=== PATIENT | female | born 1950 | race Hispanic/Latino ===

== ENCOUNTER 2017-11-11 09:26 | Emergency (ER) | payer BC, OTHER ==
--- NOTE | 2017-11-11 10:02 | RAD REPORT ---
EXAM DESCRIPTION: RAD - Chest Pa And Lat (2 Views) - 11/11/2017 9:56 am CLINICAL HISTORY: Cough, headache and diarrhea. COMPARISON: 03/15/2009 FINDINGS: The lungs are clear. The heart is mildly prominent in size. No displaced fractures. IMPRESSION: No acute intrathoracic process.
--- NOTE | 2017-11-11 10:25 | ER ---
Nurse's Notes [facility] Name: Joyce Renee Age: 67 yrs Sex: Female : 1950 Arrival Date: 11/11/2017 Time: 09:33 Bed 15 Private MD: Tosin Melchor Diagnosis: Cough Presentation: 11/11 09:44 Presenting complaint: Patient states: c/o cough, DALTON, diarrhea x 4 days. Transition of jl7 care: patient was not received from another setting of care. Onset of symptoms was November 08, 2017. Care prior to arrival: None. 09:44 Method Of Arrival: Ambulatory jl7 09:44 Acuity: GUCCI 3 jl7 Triage Assessment: 09:48 General: Appears in no apparent distress. uncomfortable, Behavior is calm, cooperative, jl7 appropriate for age. Pain: Complains of pain in ribs "From coughing.". Neuro: Level of Consciousness is awake, alert, obeys commands. Cardiovascular: Heart tones S1 S2 present Patient's skin is warm and dry. Respiratory: Airway is patent Respiratory effort is even, unlabored, Respiratory pattern is regular, symmetrical, Breath sounds with wheezes in right upper lobe. GI: No signs and/or symptoms were reported involving the gastrointestinal system. : No signs and/or symptoms were reported regarding the genitourinary system. Derm: Skin is pink, warm \\T\\ dry. Musculoskeletal: No signs and/or symptoms reported regarding the musculoskeletal system. Historical: - Allergies: 09:48 Iodine; jl7 - Home Meds: 09:48 imatinib 400 mg oral tab [Active]; atenolol 25 mg Oral tab [Active]; Multaq 400 mg oral jl7 tab [Active]; sertraline 100 mg oral tab [Active]; PH[facility] Thyroid 60 mg oral tab [Active]; - PMHx: 09:48 Atrial Fib; chemotherapy; CML; Hypertension; jl7 - PSHx: 09:48 Hysterectomy; Cholecystectomy; jl7 - Immunization history:: Adult Immunizations up to date. - Social history:: Smoking status: Patient/guardian denies using tobacco. Screenin:55 Abuse screen: Denies threats or abuse. Denies injuries from another. Nutritional jl7 screening: No deficits noted. Tuberculosis screening: No symptoms or risk factors identified. Fall Risk None identified. Assessment: 09:45 General: See triage assessment. jl7 10:25 Reassessment: No changes from previously documented assessment. Patient and/or family jl7 updated on plan of care and expected duration. Pain level reassessed. Patient is alert, oriented x 3, equal unlabored respirations, skin warm/dry/pink. Vital Signs: 09:48 BP 136 / 82; Pulse 74; Resp 18 S; Temp 98.2(O); Pulse Ox 99% on R/A; Weight 72.57 kg jl7 (R); Height 5 ft. 1 in. (154.94 cm) (R); 10:30 BP 116 / 64; Pulse 70; Resp 16 S; Pulse Ox 99% on R/A; jl7 09:48 Body Mass Index 30.23 (72.57 kg, 154.94 cm) jl7 ED Course: 09:33 Patient arrived in ED. mr 09:33 Tosin Melchor MD is Private Physician. mr 09:36 Star Covarrubias, DYLAN is Primary Nurse. jl7 09:37 Laurence Wells FNP-C is [facility]. kb 09:37 Augustine Nogueira MD is Attending Physician. kb 09:45 Triage completed. jl7 09:48 Arm band placed on right wrist. jl7 09:52 Patient moved to radiology via wheelchair. jb2 09:54 X-ray completed. Patient tolerated procedure well. Patient moved back from radiology. jb2 09:54 Chest Pa And Lat (2 Views) XRAY In Process Unspecified. EDMS 09:55 Patient has correct armband on for positive identification. Placed in gown. Bed in low jl7 position. Call light in reach. Side rails up X 1. Pulse ox on. NIBP on. 09:55 Flu and/or RSV swab sent to lab. jl7 10:30 No provider procedures requiring assistance completed. Patient did not have IV access jl7 during this emergency room visit. Administered Medications: No medications were administered Outcome: 10:24 Discharge ordered by . kb 10:30 Discharged to home ambulatory, with family. jl7 10:30 Condition: stable 10:30 Discharge instructions given to patient, family, Instructed on discharge instructions, follow up and referral plans. medication usage, Demonstrated understanding of instructions, follow-up care, medications, Prescriptions given X 1. 10:32 Patient left the ED. jl7 Signatures: Dispatcher [employer] EDAL Russell, Laurence, INSPECTOR BICYCLE-C INSPECTOR BICYCLE-Anjelica Sawant Jesse jb2 Leal, Jahala, RN RN jl7
--- NOTE | 2017-11-11 10:25 | EDPHYS ---
Physician Documentation [facility] Name: Joyce Renee Age: 67 yrs Sex: Female : 1950 Arrival Date: 11/11/2017 Time: 09:33 Bed 15 Private MD: Tosin Melchor ED Physician Augustine Nogueira HPI: 11/11 09:57 This 67 yrs old Female presents to ER via Ambulatory with complaints of Cough. kb 09:57 The patient or guardian reports cough, that is intermittent, described as mild, with no kb sputum. Onset: The symptoms/episode began/occurred 4 day(s) ago. Severity of symptoms: At their worst the symptoms were mild, moderate, in the emergency department the symptoms are unchanged. Modifying factors: The symptoms are alleviated by nothing, the symptoms are aggravated by nothing. Associated signs and symptoms: The patient has no apparent associated signs or symptoms. The patient has not experienced similar symptoms in the past. The patient has not recently seen a physician. Pt reports cough for 4 days, worse at night. Historical: - Allergies: 09:48 Iodine; jl7 - Home Meds: 09:48 imatinib 400 mg oral tab [Active]; atenolol 25 mg Oral tab [Active]; Multaq 400 mg oral jl7 tab [Active]; sertraline 100 mg oral tab [Active]; [employer] Thyroid 60 mg oral tab [Active]; - PMHx: 09:48 Atrial Fib; chemotherapy; CML; Hypertension; jl7 - PSHx: 09:48 Hysterectomy; Cholecystectomy; jl7 - Immunization history:: Adult Immunizations up to date. - Social history:: Smoking status: Patient/guardian denies using tobacco. ROS: 09:56 ENT: Negative for injury, pain, and discharge, Neck: Negative for injury, pain, and kb swelling, Cardiovascular: Negative for chest pain, palpitations, and edema, Abdomen/GI: Negative for abdominal pain, nausea, vomiting, diarrhea, and constipation, : Negative for injury, bleeding, discharge, and swelling, MS/Extremity: Negative for injury and deformity, Skin: Negative for injury, rash, and discoloration, Neuro: Negative for headache, weakness, numbness, tingling, and seizure. 09:56 Constitutional: Positive for chills, Negative for body aches, fatigue, fever, malaise, poor PO intake, weight loss. 09:56 Respiratory: Positive for cough, Negative for dyspnea on exertion, hemoptysis, orthopnea, pleurisy, shortness of breath, sputum production, wheezing. Exam: 09:56 Constitutional: This is a well developed, well nourished patient who is awake, alert, kb and in no acute distress. Head/Face: Normocephalic, atraumatic. ENT: Nares patent. No nasal discharge, no septal abnormalities noted. Tympanic membranes are normal and external auditory canals are clear. Oropharynx with no redness, swelling, or masses, exudates, or evidence of obstruction, uvula midline. Mucous membranes moist. Neck: Trachea midline, no thyromegaly or masses palpated, and no cervical lymphadenopathy. Supple, full range of motion without nuchal rigidity, or vertebral point tenderness. No Meningismus. Chest/axilla: Normal chest wall appearance and motion. Nontender with no deformity. No lesions are appreciated. Cardiovascular: Regular rate and rhythm with a normal S1 and S2. No gallops, murmurs, or rubs. Normal PMI, no JVD. No pulse deficits. Respiratory: Lungs have equal breath sounds bilaterally, clear to auscultation and percussion. No rales, rhonchi or wheezes noted. No increased work of breathing, no retractions or nasal flaring. Abdomen/GI: Soft, non-tender, with normal bowel sounds. No distension or tympany. No guarding or rebound. No evidence of tenderness throughout. Skin: Warm, dry with normal turgor. Normal color with no rashes, no lesions, and no evidence of cellulitis. MS/ Extremity: Pulses equal, no cyanosis. Neurovascular intact. Full, normal range of motion. Neuro: Awake and alert, GCS 15, oriented to person, place, time, and situation. Cranial nerves II-XII grossly intact. Motor strength 5/5 in all extremities. Sensory grossly intact. Cerebellar exam normal. Normal gait. Vital Signs: 09:48 BP 136 / 82; Pulse 74; Resp 18 S; Temp 98.2(O); Pulse Ox 99% on R/A; Weight 72.57 kg jl7 (R); Height 5 ft. 1 in. (154.94 cm) (R); 10:30 BP 116 / 64; Pulse 70; Resp 16 S; Pulse Ox 99% on R/A; jl7 09:48 Body Mass Index 30.23 (72.57 kg, 154.94 cm) jl7 MDM: 09:[address] [facility] 09:56 Data reviewed: vital signs, nurses notes. Data interpreted: Pulse oximetry: on room air kb is 99 %. Interpretation: normal. 10:23 Counseling: I had a detailed discussion with the patient and/or guardian regarding: the kb historical points, exam findings, and any diagnostic results supporting the discharge/admit diagnosis, lab results, radiology results, the need for outpatient follow up, a family practitioner, to return to the emergency department if symptoms worsen or persist or if there are any questions or concerns that arise at home. 11/11 09:44 Order name: Flu; Complete Time: 10:23 kb 11/11 09:44 Order name: Chest Pa And Lat (2 Views) XRAY; Complete Time: 10:06 kb Administered Medications: No medications were administered Disposition: 11/12 07:24 Co-signature as Attending Physician, Augustine Nogueira MD I agree with the assessment and [facility] plan of care. Disposition: 11/11/17 10:24 Discharged to Home. Impression: Cough. - Condition is Stable. - Discharge Instructions: Cough, Adult, [id number]. - Prescriptions for Tessalon Perles 100 mg Oral Capsule - take 1 capsule by ORAL route every 8 hours As needed; 15 capsule. - Medication Reconciliation Form, Thank You Letter, Antibiotic Education, Prescription Opioid Use form. - Follow up: Emergency Department; When: As needed; Reason: Worsening of condition. Follow up: Private Physician; When: 2 - 3 days; Reason: Recheck today's complaints, Continuance of care, Re-evaluation by your physician. Signatures: Dispatcher [employer] Laurence Porter, VINYL DIPPER-C NITZA-Augustine Anglin MD MD cha Leal, Jahala, RN RN jl7
[2017-11-11 10:36] VITALS: TEMP 98.2; O2SAT 99
[2017-11-11 10:37] VITALS: BP 116/64
== END 2017-11-11 10:32 | disposition home or self-care (01) ==
LOC: ER 09:26
DX: R05 Cough (principal); I10 Essential (primary) hypertension; I48.91 Unspecified atrial fibrillation; Z85.6 Personal history of leukemia; Z91.048 Other nonmedicinal substance allergy status
CPT/HCPCS: 71046; 87804; 99284

== ENCOUNTER 2018-10-06 07:22 | Day surgery (SDC) | payer OTHER ==
[2018-10-06] MEDS ORDERED: Ringers Lactate 1,000 ML IV ONE (07:58)
[2018-10-06] MEDS ORDERED: LIDOCAINE 1% MPF 5 ML VIAL ONE (08:24)
[2018-10-06] MEDS ORDERED: PROPOFOL 200 MG/20 ML VIAL IV ONE ×2 (08:24→10:00)
--- NOTE | 2018-10-06 09:40 | ENDO RPT ---
[address], [address] COLONOSCOPY PROCEDURE REPORT EXAM DATE: 10/06/2018 PATIENT NAME: Joyce Renee MR #: [id number] BIRTHDATE: 1950 ATTENDING: Roger Louie DR STATUS: outpatient SERVICE GIRL: Joanne Rice RN, Abbey Gomez, and Romero Gomez INDICATIONS: The patient is a 68 yr old Female here for a colonoscopy due to unexplained chronic diarrhea PROCEDURE PERFORMED: Colonoscopy with biopsy MEDICATIONS: Per Anesthesia. ESTIMATED BLOOD LOSS: None CONSENT: The patient understands the risks and benefits of the procedure and understands that these risks include, but are not limited to: sedation, allergic reaction, infection, perforation and/or bleeding. Alternative means of evaluation and treatment include, among others: physical exam, x-rays, and/or surgical intervention. The patient elects to proceed with this endoscopic procedure. DESCRIPTION OF PROCEDURE: During intra-op preparation period all mechanical medical equipment was checked for proper function. Hand hygiene and appropriate measures for infection prevention was taken. Procedure, possible complications, alternatives including, but not limited to possibility of bleeding, perforation, tear, infection, sepsis, need for surgery, need for blood transfusion, were explained to the patient. After the risks, benefits and alternatives of the procedure were thoroughly explained, Informed consent was verified, confirmed and timeout was successfully executed by the treatment team. The patient was placed in the left lateral position. A digital rectal exam was performed and revealed internal hemorrhoids. After appropriate level of anesthesia, the scope was passed. The EC-[id number] ([id number]) and [id number] ([id number]) endoscope was introduced through the anus and advanced to the cecum, which was identified by both the appendix and ileocecal valve. The quality of the prep was fair. The instrument was then slowly withdrawn as the colon was fully examined. Scope withdrawal time was 15 minutes. COLON FINDINGS: Tortuous Sigmoid Colon. A large sized diffuse circumferential patch of abnormal mucosa was found at the cecum. The mucosa was erythematous and edematous. A biopsy of the area was performed using cold forceps. There was severe diverticulosis noted in the sigmoid colon with associated muscular hypertrophy, colonic narrowing, luminal narrowing, petechiae and tortuosity. No bleeding was noted from the diverticulosis. Retroflexed views revealed no abnormalities. The scope was then completely withdrawn from the patient and the procedure terminated. ADVERSE EVENTS: There were no complications. IMPRESSIONS: 1. Tortuous Sigmoid Colon 2. Large sized diffuse circumferential abnormal mucosa was found at the cecum; The mucosa was erythematous and edematous; biopsy of the area was performed using cold forceps 3. There was severe diverticulosis noted in the sigmoid colon RECOMMENDATIONS: 1. avoid NSAIDS for 2 weeks 2. await biopsy results 3. follow-up: office 2 week(s) 4. hemorrhoidal hygiene 5. yearly hemoccult starting in 4 years 6. increase dietary water 7. low fiber / diverticular diet RECALL: Return in 5 year(s) for Colonoscopy, pending biopsy results. Pending Biopsy Roger Louie DR eSigned: Roger Louie DR 10/06/2018 9:39 AM cc: CPT CODES: ICD9 CODES: PATIENT NAME: Víctor Joyce LashaunRajan MR#: [id number]
[2018-10-06] MEDS ORDERED: GLYCOPYRROLATE 0.2 MG/ML SYR ONE (10:00)
[2018-10-06 10:35] VITALS: BP 111/90; TEMP 97.8; O2SAT 100
== END 2018-10-06 10:35 | disposition home or self-care (01) ==
LOC: OR 07:22
PROVIDERS: ATTEND Surgery
PROC: 0DBH8ZX Excision of Cecum, Via Natural or Artificial Opening Endoscopic, Diagnostic (ICD-10-PCS; principal; 2018-10-06 08:30)
DX: K57.30 Diverticulosis of large intestine without perforation or abscess without bleeding (principal); K58.9 Irritable bowel syndrome, unspecified; K64.8 Other hemorrhoids; I10 Essential (primary) hypertension; I48.91 Unspecified atrial fibrillation; E03.9 Hypothyroidism, unspecified; F41.9 Anxiety disorder, unspecified; Z85.6 Personal history of leukemia; Z91.041 Radiographic dye allergy status
CPT/HCPCS: 88305; 45380; J2704 ×2

== ENCOUNTER 2019-01-06 10:06 | Emergency (ER) | payer OTHER ==
[2019-01-06 11:02] LABS: Absolute Lymphocytes (CBC) 1.9 K/uL (0.7-4.9); Absolute Monocytes 0.5 K/uL (0.1-1.3); Absolute Neutrophil 4.1 K/uL (1.8-8.0); Basophils % 0.2 % (0-1.3); Hematocrit 38.1 % (36.0-45.0); Lymphocytes % 28.2 % (15.3-44.8); MPV 9.4 fL (7.6-11.3); Monocytes % 8.1 % (3.3-12.3); RBC Red Blood Cell Count 4.32 M/uL (3.86-4.86)
[2019-01-06] MEDS ORDERED: LEVALBUTEROL 1.25 MG/3 ML NEB ONE (11:15)
[2019-01-06 11:19] LABS: Potassium 3.4 mmol/L (3.5-5.1)
--- NOTE | 2019-01-06 12:48 | ER ---
Nurse's Notes [facility] Name: Joyce Renee Age: 68 yrs Sex: Female : 1950 Arrival Date: 01/06/2019 Time: 10:09 Bed 8 Private MD: Tosin Melchor Diagnosis: Bronchitis, not specified as acute or chronic;Acute upper respiratory infection, unspecified Presentation: 01/06 10:24 Presenting complaint: Patient states: cough, headache since Thursday, getting worse, iw sweaty at night, denies fever, also has been tired and feels mild SOB on exertion, denies hx of breathing problems. Transition of care: patient was not received from another setting of care. Onset of symptoms was December 30, 2018. Risk Assessment: Do you want to hurt yourself or someone else? Patient reports no desire to harm self or others. Initial Sepsis Screen: Does the patient meet any 2 criteria? No. Patient's initial sepsis screen is negative. Does the patient have a suspected source of infection? No. Patient's initial sepsis screen is negative. Care prior to arrival: None. 10:24 Method Of Arrival: Ambulatory iw 10:24 Acuity: GUCCI 3 iw Historical: - Allergies: 10:27 Iodine; iw - Home Meds: 10:27 Gleevec oral 500 mg oral once daily [Active]; atenolol 25 mg Oral tab once daily iw [Active]; Multaq 400 mg Oral tab 2 times per day [Active]; sertraline 100 mg Oral tab once daily [Active]; [employer] Thyroid 60 mg Oral tab [Active]; 10:52 imatinib 400 mg Oral tab [Active]; tw2 - PMHx: 10:27 Atrial Fib; chemotherapy; CML; Hypertension; iw - PSHx: 10:27 Hysterectomy; Cholecystectomy; iw - Immunization history:: Adult Immunizations up to date. - Social history:: Smoking status: Patient/guardian denies using tobacco. - Ebola Screening: : Patient negative for fever greater than or equal to 101.5 degrees Fahrenheit, and additional compatible Ebola Virus Disease symptoms Patient denies exposure to infectious person Patient denies travel to an Ebola-affected area in the 21 days before illness onset No symptoms or risks identified at this time. Screenin:51 Abuse screen: Denies threats or abuse. Nutritional screening: No deficits noted. tw2 Tuberculosis screening: No symptoms or risk factors identified. Fall Risk None identified. Assessment: 10:30 General: Appears in no apparent distress. well groomed, Behavior is calm, cooperative, tw2 appropriate for age. Pain: Denies pain. Neuro: Level of Consciousness is awake, alert, obeys commands, Oriented to person, place, time, situation. Cardiovascular: Heart tones S1 S2 Patient's skin is warm and dry. Respiratory: Airway is patent Respiratory effort is even, unlabored, Respiratory pattern is regular, symmetrical, Breath sounds are clear Parent/caregiver reports the patient having cough that is non-productive. GI: No signs and/or symptoms were reported involving the gastrointestinal system. : No signs and/or symptoms were reported regarding the genitourinary system. EENT: Reports nasal congestion nasal discharge. Derm: No signs and/or symptoms reported regarding the dermatologic system. Musculoskeletal: Range of motion: intact in all extremities. 12:32 Reassessment: Patient appears in no apparent distress at this time. No changes from tw2 previously documented assessment. Patient and/or family updated on plan of care and expected duration. Pain level reassessed. Patient is alert, oriented x 3, equal unlabored respirations, skin warm/dry/pink. Vital Signs: 10:27 BP 114 / 75; Pulse 74; Resp 18 S; Temp 97.4(TE); Pulse Ox 99% on R/A; Weight 65.32 kg; iw Height 5 ft. 1 in. (154.94 cm); Pain 0/10; 11:00 BP 132 / 74; Pulse 71; Resp 17; Pulse Ox 97% on R/A; tw2 12:32 BP 101 / 46; Pulse 99; Resp 17; Pulse Ox 98% on R/A; tw2 13:10 BP 114 / 56; Pulse 90; Resp 17; Pulse Ox 98% on R/A; tw2 10:27 Body Mass Index 27.21 (65.32 kg, 154.94 cm) iw ED Course: 10:09 Patient arrived in ED. mr 10:09 Tosin Melchor MD is Private Physician. mr 10:15 Shaq Mahajan MD is Attending Physician. kdr 10:25 Triage completed. iw 10:27 Arm band placed on. iw 10:28 Bed in low position. Call light in reach. personnel monitor on. Pulse ox on. NIBP on. tw2 10:49 Juan Manuel Thornton, RN is Primary Nurse. sg 10:52 Initial lab(s) drawn, by me, sent to lab. Inserted saline lock: 20 gauge in right dh3 antecubital area, using aseptic technique. Blood collected. 11:27 CXR XRAY In Process Unspecified. EDMS 12:46 Tosin Melchor MD is Referral Physician. kdr 13:12 No provider procedures requiring assistance completed. IV discontinued, intact, tw2 bleeding controlled, No redness/swelling at site. Pressure dressing applied. Administered Medications: 11:03 Drug: Xopenex (3) 1.25 mg Route: Inhalation; Outcome: 12:47 Discharge ordered by MD. kdr 13:11 Discharged to home ambulatory. tw2 13:11 Condition: stable 13:11 Discharge instructions given to patient, Instructed on discharge instructions, follow up and referral plans. medication usage, Demonstrated understanding of instructions, follow-up care, medications, Prescriptions given X 4. 13:12 Patient left the ED. tw2 Signatures: Dispatcher [employer] EDIL Juan Manuel Thornton, RN Shaq Treadwell MD MD [facility] Abigail Choi Irene, RN DYLAN Marivel Cody RN RN tw2 Jessica Blue [facility]
--- NOTE | 2019-01-06 12:48 | EDPHYS ---
Physician Documentation [facility] Name: Joyce Renee Age: 68 yrs Sex: Female : 1950 Arrival Date: 01/06/2019 Time: 10:09 Bed 8 Private MD: Tosin Melchor ED Physician Shaq Mahajan HPI: 01/06 10:43 This 68 yrs old Female presents to ER via Ambulatory with complaints of Cough, kdr Fatigue. 10:43 The patient or guardian reports cough, that is intermittent, described as moderate, kdr difficulty breathing. Onset: The symptoms/episode began/occurred Thursday. Severity of symptoms: At their worst the symptoms were moderate, severe, just prior to arrival, Makes her have to urinate when she coughs hard. Modifying factors: The symptoms are alleviated by nothing, the symptoms are aggravated by exertion. Associated signs and symptoms: The patient has no apparent associated signs or symptoms. The patient has not experienced similar symptoms in the past. The patient has not recently seen a physician. 10:43 Feels generally weak and fatigued. kdr Historical: - Allergies: 10:27 Iodine; iw - Home Meds: 10:27 Gleevec oral 500 mg oral once daily [Active]; atenolol 25 mg Oral tab once daily iw [Active]; Multaq 400 mg Oral tab 2 times per day [Active]; sertraline 100 mg Oral tab once daily [Active]; [employer] Thyroid 60 mg Oral tab [Active]; 10:52 imatinib 400 mg Oral tab [Active]; tw2 - PMHx: 10:27 Atrial Fib; chemotherapy; CML; Hypertension; iw - PSHx: 10:27 Hysterectomy; Cholecystectomy; iw - Immunization history:: Adult Immunizations up to date. - Social history:: Smoking status: Patient/guardian denies using tobacco. - Ebola Screening: : Patient negative for fever greater than or equal to 101.5 degrees Fahrenheit, and additional compatible Ebola Virus Disease symptoms Patient denies exposure to infectious person Patient denies travel to an Ebola-affected area in the 21 days before illness onset No symptoms or risks identified at this time. ROS: 10:43 Constitutional: Negative for fever, chills, and weight loss, Eyes: Negative for injury, kdr pain, redness, and discharge, ENT: Negative for injury, pain, and discharge, Neck: Negative for injury, pain, and swelling, Cardiovascular: Negative for chest pain, palpitations, and edema, Abdomen/GI: Negative for abdominal pain, nausea, vomiting, diarrhea, and constipation, Back: Negative for injury and pain, : Negative for injury, bleeding, discharge, and swelling, MS/Extremity: Negative for injury and deformity, Skin: Negative for injury, rash, and discoloration, Neuro: Negative for headache, weakness, numbness, tingling, and seizure activity. Psych: Negative for depression, anxiety, suicide ideation, homicidal ideation, and hallucinations, Allergy/Immunology: Negative for hives, rash, and allergies, Endocrine: Negative for neck swelling, polydipsia, polyuria, polyphagia, and marked weight changes, Hematologic/Lymphatic: Negative for swollen nodes, abnormal bleeding, and unusual bruising. 10:43 Respiratory: Positive for cough, with no reported sputum, Green nasal discharge, no sputum. Exam: 10:46 Constitutional: This is a well developed, well nourished patient who is awake, alert, kdr and in no acute distress. Head/Face: Normocephalic, atraumatic. Eyes: Pupils equal round and reactive to light, extra-ocular motions intact. Lids and lashes normal. Conjunctiva and sclera are non-icteric and not injected. Cornea within normal limits. Periorbital areas with no swelling, redness, or edema. Neck: Trachea midline, no thyromegaly or masses palpated, and no cervical lymphadenopathy. Supple, full range of motion without nuchal rigidity, or vertebral point tenderness. No Meningismus. Chest/axilla: Normal chest wall appearance and motion. Nontender with no deformity. No lesions are appreciated. Cardiovascular: Regular rate and rhythm with a normal S1 and S2. No gallops, murmurs, or rubs. Normal PMI, no JVD. No pulse deficits. Respiratory: Lungs have equal breath sounds bilaterally, clear to auscultation and percussion. No rales, rhonchi or wheezes noted. No increased work of breathing, no retractions or nasal flaring. Abdomen/GI: Soft, non-tender, with normal bowel sounds. No distension or tympany. No guarding or rebound. No evidence of tenderness throughout. Back: No spinal tenderness. No costovertebral tenderness. Full range of motion. Skin: Warm, dry with normal turgor. Normal color with no rashes, no lesions, and no evidence of cellulitis. MS/ Extremity: Pulses equal, no cyanosis. Neurovascular intact. Full, normal range of motion. Neuro: Awake and alert, GCS 15, oriented to person, place, time, and situation. Cranial nerves II-XII grossly intact. Motor strength 5/5 in all extremities. Sensory grossly intact. Cerebellar exam normal. Normal gait. Psych: Awake, alert, with orientation to person, place and time. Behavior, mood, and affect are within normal limits. Vital Signs: 10:27 BP 114 / 75; Pulse 74; Resp 18 S; Temp 97.4(TE); Pulse Ox 99% on R/A; Weight 65.32 kg; iw Height 5 ft. 1 in. (154.94 cm); Pain 0/10; 11:00 BP 132 / 74; Pulse 71; Resp 17; Pulse Ox 97% on R/A; tw2 12:32 BP 101 / 46; Pulse 99; Resp 17; Pulse Ox 98% on R/A; tw2 13:10 BP 114 / 56; Pulse 90; Resp 17; Pulse Ox 98% on R/A; tw2 10:27 Body Mass Index 27.21 (65.32 kg, 154.94 cm) iw MDM: 12:45 Data reviewed: vital signs, nurses notes, lab test result(s), radiologic studies. kdr Counseling: I had a detailed discussion with the patient and/or guardian regarding: the historical points, exam findings, and any diagnostic results supporting the discharge/admit diagnosis, lab results, radiology results, the need for outpatient follow up. ED course: The patient was stable in the ED and without acute illness evident.. 12:47 Patient medically screened. kdr 01/06 10:43 Order name: CBC with Diff kdr 01/06 10:43 Order name: Chem 7; Complete Time: 11:47 kdr 01/06 10:43 Order name: CXR XRAY kdr 01/06 10:43 Order name: CBC with Automated Diff; Complete Time: 11:47 EDMS 01/06 10:52 Order name: IV Start; Complete Time: 10:53 tw2 Administered Medications: 11:03 Drug: Xopenex (3) 1.25 mg Route: Inhalation; sg Disposition: 01/06/19 12:47 Discharged to Home. Impression: Bronchitis, not specified as acute or chronic, Acute upper respiratory infection, unspecified. - Condition is Stable. - Discharge Instructions: Acute Bronchitis, [id number], Upper Respiratory Infection, Adult, [id number]. - Prescriptions for Amoxicillin 500 mg Oral Capsule - take 1 capsule by ORAL route every 8 hours for 10 days; 30 tablet. Tessalon Perles 100 mg Oral Capsule - take 1 capsule by ORAL route every 8 hours As needed; 15 capsule. Albuterol Sulfate 90 mcg/actuation - inhale 1-2 puff by INHALATION route every 4-6 hours; 1 Inhaler. Guaifenesin AC 10- 100 mg/5 mL Oral Liquid - take 10 milliliter by ORAL route every 4 hours As needed; 240 milliliter. - Medication Reconciliation Form, Thank You Letter, Antibiotic Education, Prescription Opioid Use form. - Follow up: Tosin Melchor MD; When: 2 - 3 days; Reason: If symptoms return, Further diagnostic work-up, Recheck today's complaints, Continuance of care, Re-evaluation by your physician. - Problem is new. - Symptoms have improved. Signatures: Dispatcher [employer] EDMS Juan Manuel Thornton RN RN sg Shaq Mahajan MD MD [facility] Lana Santiago RN RN iw Marivel Cody RN RN tw2 Corrections: (The following items were deleted from the chart) 13:12 12:47 01/06/2019 12:47 Discharged to Home. Impression: Bronchitis, not specified as tw2 acute or chronic; Acute upper respiratory infection, unspecified. Condition is Stable. Forms are Medication Reconciliation Form, Thank You Letter, Antibiotic Education, Prescription Opioid Use. Follow up: Tosin Melchor; When: 2 - 3 days; Reason: If symptoms return, Further diagnostic work-up, Recheck today's complaints, Continuance of care, Re-evaluation by your physician. Problem is new. Symptoms have improved. kdr
[2019-01-06 13:25] VITALS: TEMP 97.4
[2019-01-06 13:28] VITALS: O2SAT 98
[2019-01-06 13:29] VITALS: BP 114/56
--- OUTSIDE RECORDS SUMMARY | 2019-01-06 14:38 | XMS REPORT ---
:1950 Author Organization [employer] Care Team Providers Name Role Phone Melchor, Na Provider Role Unavailable Allergies No Known Allergies Problems Problem Type Condition Code Onset Dates Condition Status Problem AF (atrial fibrillation) I48.91 Active Problem Diverticulosis of colon K57.30 Active Problem Irritable bowel syndrome with K58.0 Active diarrhea Problem Gastroesophageal reflux disease K21.0 Active with esophagitis Problem Seasonal allergic rhinitis, J30.2 Active unspecified trigger Problem Renal insufficiency N28.9 Active Problem Sciatica, left side M54.32 Active Problem Depression with anxiety F41.8 Active Problem Sciatica of left side without back M54.32 Active pain Problem Impacted cerumen, left ear H61.22 Active Assessment Hypothyroidism E03.9 Active Problem Benign essential HTN I10 Active Problem Hypothyroidism E03.9 Active Problem CML (chronic myelocytic leukemia) C92.10 Active Problem Anxiety F41.9 Active Problem Hip joint pain M25.559 Active Problem Osteopenia M85.80 Active Medications Medication Code Code Instructions Start End Status Dosage System Date Date [place] Thyroid [facility] 64489505046 60 MG Orally Active 1 tablet Once a day on an empty stomach Results No Known Results Summary Purpose [employer] Submission
--- OUTSIDE RECORDS SUMMARY | 2019-01-06 14:38 | XMS REPORT ---
:1950 Author Organization [employer] Care Team Providers Name Role Phone Melchor, Na Provider Role Unavailable Allergies, Adverse Reactions, Alerts Substance Reaction Event Type Iodine Info Not Available Drug Allergy Problems Problem Type Condition Code Onset Dates Condition Status Problem AF (atrial fibrillation) I48.91 Active Problem Diverticulosis of colon K57.30 Active Problem Irritable bowel syndrome with K58.0 Active diarrhea Problem Gastroesophageal reflux disease K21.0 Active with esophagitis Assessment Osteopenia M85.80 Active Problem Seasonal allergic rhinitis, J30.2 Active unspecified trigger Assessment Renal insufficiency N28.9 Active Assessment Encounter for screening mammogram Z12.31 Active for breast cancer Problem Renal insufficiency N28.9 Active Problem Sciatica, left side M54.32 Active Problem Depression with anxiety F41.8 Active Problem Sciatica of left side without back M54.32 Active pain Problem Impacted cerumen, left ear H61.22 Active Assessment Medicare annual wellness visit, Z00.00 Active subsequent Assessment Benign essential HTN I10 Active Assessment AF (atrial fibrillation) I48.91 Active Problem Benign essential HTN I10 Active Problem Hypothyroidism E03.9 Active Assessment Encounter for vision screening Z01.00 Active Problem CML (chronic myelocytic leukemia) C92.10 Active Problem Anxiety F41.9 Active Assessment Encounter for screening for Z13.820 Active osteoporosis Problem Hip joint pain M25.559 Active Problem Osteopenia M85.80 Active Medications Medication Code Code Instructions Start End Status Dosage System Date Date Pantoprazole [facility] 61764278745 40 MG Orally Active 1 tablet Sodium Once a day Zoloft ND 92542569896 100 MG Orally Active 1 tablet Once a day Macrobid ND 61489197274 100 MG Orally Active 1 capsule every 12 hrs with food [place] Thyroid ND 35996093932 60 MG Orally Active 1 tablet Once a day on an empty stomach Gleevec ND 32943991793 400 MG Orally Active 1 tablet Once a day with a meal and a large glass of water Multaq ND 34036335833 400 MG Orally Active 1/2 tablet Twice a day with meals Multaq [facility] 19832353535 400 MG Active TAKE ONE-HALF TABLET BY MOUTH TWICE DAILY Vitamin D3 [facility] 78104528925 - Orally Active not Complete defined Atenolol [facility] 06529569696 25 MG Orally Active 1 tablet Once a day Results No Known Results Summary Purpose [employer]ClinicalWorks Submission
--- NOTE | 2019-01-06 20:30 | RAD REPORT ---
EXAM DESCRIPTION: RAD - Chest Single View - 01/06/2019 11:50 am CLINICAL HISTORY: Congestion;Cough Chest pain. COMPARISON: Chest Pa And Lat (2 Views) dated 11/11/2017; CHEST PA AND LAT 2 VIEW dated 03/15/2009 FINDINGS: Portable technique limits examination quality. The lungs are grossly clear. The heart is normal in size. No displaced fractures. IMPRESSION: No acute intrathoracic process suspected.
== END 2019-01-06 13:12 | disposition home or self-care (01) ==
LOC: ER 10:06
DX: J40 Bronchitis, not specified as acute or chronic (principal); J06.9 Acute upper respiratory infection, unspecified; I10 Essential (primary) hypertension; I48.91 Unspecified atrial fibrillation
CPT/HCPCS: 36415; 71045; 80048; 85025; 99285

== ENCOUNTER 2022-06-10 12:32 | Emergency (ER) | payer OTHER ==
--- OUTSIDE RECORDS SUMMARY | 2022-06-10 12:54 | XMS REPORT | Continuity of Care Document ---
:1950 Author Organization [facility] t Address [address] [place] [address] Care Team Providers Name Role Phone [phone] Primary Care Physician Unavailable Tosin Melchor Attending Clinician Unavailable Nurse, [facility] Attending Clinician Unavailable Prema Krishnamurthy Attending Clinician PREMA MCNALLY Attending Clinician Unavailable BRITTNI GUTIERREZ Attending Clinician Unavailable Brittni Gutierrez DO Attending Clinician Only, [facility] Test Attending Clinician Unavailable Verónica Tenorio Attending Clinician VERÓNICA REYES Attending Clinician Unavailable JENNIFER SHRESTHA Attending Clinician Unavailable AMIE NELSON Attending Clinician Unavailable Provider, [facility] Attending Clinician Unavailable Unknown, Attending Attending Clinician Unavailable Doctor Unassigned, [place] Attending Clinician Unavailable BRITTNI GUTIERREZ Admitting Clinician Unavailable Payers Payer Name Policy Type Policy Number Effective Date Expiration Date S scotdionne [facility] [id number] 2021 (MEDICARE 00:00:00 REPLACEMENT HMO) Qoopl [id number] 2018spring 00:00:00 [facility] Health C1 [id number] [facility] [id number] [facility] C1 [id number] [facility] [place] [id number] 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 Anxiety Anxiety Problem Common 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 Hip joint Hip joint Problem Com mon pain pain [facility] [id number] Seasonal Problem Comm on allergic Spirit rhinitis, - [facility] unspecifie [facility] Gastroesop +5th digit Problem C ommon hageal eff Spirit reflux 05/10/20*[place] [facility] disease stroesopha [facility] with geal [facility] esophagiti reflux Medica l s disease Center with esophagiti s Renal Renal Problem Common insufficie insufficie Sp tom ncy ncy [facility] [id number] Paresthesi Problem Com mon a of skin [facility] Allergies, Adverse Reactions, Alerts Allergy Allergy Status Severity Reaction(s) Onset Inactive Treating Comm ents Source Name Type Date Date Clinician Iodine Propensi Active Hives Univers And ty to 3-23 ity of Iodide adverse 00:00: [place] Containi reaction 00 Medica l ng s Branch Products IODINE Drug Active Hives Univers AND Class 3-23 ity of IODIDE 00:00: [place] CONTAINI 00 Medical NG Branch PRODUCTS Iodine Propensi Active Hives Univers And ty to 3-23 ity of Iodide adverse 00:00: [place] Containi reaction 00 Medica l ng s Branch Products 463 Drug Active Unknown Common allergy [facility] Social History Social Habit Start Date Stop Date Quantity Comments Source History of Tobacco [facility] Sex Assigned At [facility] Exposure to 2022-01-18 2022-01-28 Not sure [facility] SARS-CoV-2 (event) 00:00:00 14:44:00 [facility] Alcohol intake 2022-01-28 2022-01-28 .14 /d [facility] 00:00:00 00:00:00 [facility] Tobacco use and 2016-10-07 2016-10-07 Never used MENA360it [facility] exposure 00:00:00 00:00:00 [facility] Smoking Status Start Date Stop Date Source Never Smoker [facility] Medications Ordered Filled Start Stop Current Ordering Indication Dosage Frequency Signature Comments Components Source Medication Medication Date Date Medication? Clinician (SIG) Name Name Zofran 4 MG Zofran 4 MG 2021-08 No BID Zofran 4 0-14 MG 00:00: 00 amoxicillin 2021- No [id number] 1{tbl} Take 1 Univers -clavulanat 6-20 02-04 tablet by it y of e 875-125 00:00: 04:59 mouth [place] mg per 00 :00 every 12 Medical tablet (twelve) Branch hours for 7 days. amoxicillin 2021- No [id number] 1{tbl} Take 1 Univers -clavulanat 6-20 02-04 tablet by it y of e 875-125 00:00: 04:59 mouth [place] mg per 00 :00 every 12 Medical tablet (twelve) Branch hours for 7 days. dronedarone 2021-0 Yes 200mg Take 200 U nivers 400 mg 6-01 mg by ity of tablet 16:21: mouth 2 [place] [address] (two) Medical times Branch daily with meals. aspirin 81 0 Yes 81mg Take 81 mg U nivers mg chewable 6-01 by mouth ity of tablet 16:21: daily. [address] atenolol 25 Yes 25mg Take 25 mg Univers mg tablet 6-01 by mouth ity of 16:21: daily. [place] [address] Medical Branch thyroid 0 Yes 60mg Take 60 mg Univ ers (ARMOUR 6-01 by mouth ity of THYROID) 60 16:21: every [place] mg tablet 25 morning. Medica l Branch imatinib 0 Yes 400mg Take 400 Univ ers 100 mg 6-01 mg by ity of tablet 16:21: mouth [place] 25 daily Medical Branch atenolol 25 Yes 25mg Take 25 mg Univers mg tablet 6-01 by mouth ity of 11:21: daily. [address] thyroid Yes 60mg Take 60 mg Univ ers (ARMOUR 6-01 by mouth ity of THYROID) 60 11:21: every [place] mg tablet 25 morning. Medica l Branch imatinib Yes 400mg Take 400 Univ ers 100 mg 6-01 mg by ity of tablet 11:21: mouth [place] 25 daily Medical Branch dronedarone 0 Yes 200mg Take 200 U nivers 400 mg 6-01 mg by ity of tablet 11:21: mouth 2 [place] [address] (two) Medical times [place] daily with meals. aspirin 81 0 Yes 81mg Take 81 mg U nivers mg chewable 6-01 by mouth ity of tablet 11:21: daily. [address] atenolol Yes 25mg Take 25 mg Univers mg tablet 6-01 by mouth ity of 11:21: daily. [place] [address] Medical Branch thyroid 0 Yes 60mg Take 60 mg Univ ers (ARMOUR 6-01 by mouth ity of THYROID) 60 11:21: every [place] mg tablet 25 morning. Medica l Branch imatinib 0 Yes 400mg Take 400 Univ ers 100 mg 6-01 mg by ity of tablet 11:21: mouth [place] 25 daily Medical Branch dronedarone 0 Yes 200mg Take 200 U nivers 400 mg 6-01 mg by ity of tablet 11:21: mouth 2 [place] 25 (two) Medical times Branch daily with meals. aspirin 81 Yes 81mg Take 81 mg U nivers mg chewable 6-01 by mouth ity of tablet 11:21: daily. [address] atenolol 25 Yes 25mg Take 25 mg Univers mg tablet 6-01 by mouth ity of 11:21: daily. [place] [address] Medical Branch thyroid Yes 60mg Take 60 mg Univ ers (ARMOUR 6- by mouth ity of THYROID) 60 11:21: every [place] mg tablet 25 morning. Medica l Branch imatinib Yes 400mg Take 400 Univ ers 100 mg 6-01 mg by ity of tablet 11:21: mouth [place] 25 daily Medical Branch dronedarone Yes 200mg Take 200 U nivers 400 mg 6-01 mg by ity of tablet 11:21: mouth 2 [place] [address] (two) Medical times Branch daily with meals. aspirin 81 Yes 81mg Take 81 mg U nivers mg chewable 6-01 by mouth ity of tablet 11:21: daily. [address] cephALEXin 2020- No [id number] 500mg Take 1 Univers (KEFLEX) 01-0809 capsule by ity of 500 mg 00:00: 04:59 mouth 3 [place] capsule 00 :00 (three) Medical times Branch daily for 7 days. EpiPen EpiPen 2019-0 Yes Na Melchor as Common 2-Chung 2-Chung 03-09 directed Spirit 00:00: - [facility] 00 [facility] EpiPen EpiPen 2019-0 No EpiPen 2-Chung 0.3 2-Chung 0.3 - 2-Chung 0.3 MG/0.3ML MG/0.3ML 00:00: MG/0.3ML 00 EpiPen EpiPen 2019-0 No EpiPen 2-Chung 0.3 2-Chung 0.3 -31 2-Chung 0.3 MG/0.3ML MG/0.3ML 00:00: MG/0.3ML 00 EpiPen EpiPen 2019-0 No 2-Chung 0.3 2-Chung 0.3 -31 MG/0.3ML MG/0.3ML 00:00: 00 EpiPen EpiPen 2020-0 No 2-Chung 0.3 2-Chung 0.3 7-31 MG/0.3ML MG/0.3ML 00:00: 00 EpiPen EpiPen 2020-0 No EpiPen 2-Chung 0.3 2-Chung 0.3 7-31 2-Chung 0.3 MG/0.3ML MG/0.3ML 00:00: MG/0.3ML 00 dicyclomine 2018-08 Yes [id number] 20mg Take 1 Univers (BENTYL) 20 2-16 tablet by ity of mg tablet 00:00: mouth [place] 00 every 6 Medical (six) Branch hours as needed for Abdominal pain. proMETHazin 2018-08 Yes [id number] 25mg Take 1 U nivers e 25 mg 2-16 tablet by ity of tablet 00:00: mouth [place] 00 every 6 Medical (six) Branch hours as needed for Nausea and Vomiting (N/V). cephALEXin 2018-08 Yes [id number] 250mg Take 1 Univers (KEFLEX) 2-16 capsule by ity o f 250 mg 00:00: mouth [place] capsule 00 every 6 Medical (six) Branch hours. dicyclomine 2018-08 Yes [id number] 20mg Take 1 Univers (BENTYL) 20 2-16 tablet by ity of mg tablet 00:00: mouth [place] 00 every 6 Medical (six) Branch hours as needed for Abdominal pain. proMETHazin 2018-08 Yes [id number] 25mg Take 1 U nivers e 25 mg 2-16 tablet by ity of tablet 00:00: mouth [place] 00 every 6 Medical (six) Branch hours as needed for Nausea and Vomiting (N/V). dicyclomine 2018-08 Yes [id number] 20mg Take 1 Univers (BENTYL) 20 2-16 tablet by ity of mg tablet 00:00: mouth [place] 00 every 6 Medical (six) Branch hours as needed for Abdominal pain. proMETHazin 2018-08 Yes [id number] 25mg Take 1 U nivers e 25 mg 2-16 tablet by ity of tablet 00:00: mouth [place] 00 every 6 Medical (six) Branch hours as needed for Nausea and Vomiting (N/V). dicyclomine 2018-08 Yes [id number] 20mg Take 1 Univers (BENTYL) 20 2-16 tablet by ity of mg tablet 00:00: mouth [place] 00 every 6 Medical (six) Branch hours as needed for Abdominal pain. proMETHazin 2018-08 Yes [id number] 25mg Take 1 U nivers e 25 mg 2-16 tablet by ity of tablet 00:00: mouth [place] 00 every 6 Medical (six) Branch hours as needed for Nausea and Vomiting (N/V). dicyclomine 2018-08 Yes [id number] 20mg Take 1 Univers (BENTYL) 20 2-16 tablet by ity of mg tablet 00:00: mouth [place] 00 every 6 Medical (six) Branch hours as needed for Abdominal pain. proMETHazin 2018-08 Yes [id number] 25mg Take 1 U nivers e 25 mg 2-16 tablet by ity of tablet 00:00: mouth [place] 00 every 6 Medical (six) Branch hours as needed for Nausea and Vomiting (N/V). cephALEXin 2018-08- No [id number] 250mg Take 1 Univers (KEFLEX) 2-16 06- capsule by ity of 250 mg 00:00: 00:00 mouth [place] capsule 00 :00 every 6 Medical (six) Branch hours. dronedarone Yes 200mg Take 200 U nivers 400 mg 4-17 mg by ity of tablet 16:50: mouth 2 [place] 17 (two) Medical times Branch daily with meals. atenolol 25 Yes 25mg Take 25 mg Univers mg tablet 4-17 by mouth ity of 16:50: daily. [place] 17 Medical Branch imatinib Yes 600mg Take 600 Univ ers 100 mg 4-17 mg by ity of tablet 16:50: mouth [place] 17 daily. Medical Branch aspirin 81 Yes 81mg Take 81 mg U nivers mg chewable 3-23 by mouth ity of tablet 22:16: daily. [place] 18 Medical Branch thyroid 2017 Yes 60mg Take 60 mg Univ ers (ARMOUR 3-23 by mouth ity of THYROID) 60 22:16: every [place] mg tablet 18 morning. Medica l Branch acetaminoph Yes 1{tbl} Take 1 Un rodrick en-codeine 3-23 tablet by ity of 300-30 mg 00:00: mouth [place] tablet 00 every 4 Medical (four) Branch hours as needed for Pain (scale 4-6) or Pain (scale 7-10). acetaminoph 2017-0 Yes 1{tbl} Take 1 Un rodrick en-codeine 3-23 tablet by ity of 300-30 mg 00:00: mouth [place] tablet 00 every 4 Medical (four) Branch hours as needed for Pain (scale 4-6) or Pain (scale 7-10). acetaminoph 2016-0 Yes 1{tbl} Take 1 Un rodrick en-codeine 3-23 tablet by ity of 300-30 mg 00:00: mouth [place] tablet 00 every 4 Medical (four) Branch hours as needed for Pain (scale 4-6) or Pain (scale 7-10). acetaminoph 2016-0 Yes 1{tbl} Take 1 Un rodrick en-codeine 3-23 tablet by ity of 300-30 mg 00:00: mouth [place] tablet 00 every 4 Medical (four) Branch hours as needed for Pain (scale 4-6) or Pain (scale 7-10). acetaminoph Yes 1{tbl} Take 1 Un rodrick en-codeine 3-23 tablet by ity of 300-30 mg 00:00: mouth [place] tablet 00 every 4 Medical (four) Branch hours as needed for Pain (scale 4-6) or Pain (scale 7-10). traMADOL 50 2016-0 Yes 50mg Take 1 Univ ers mg tablet 3-02 tablet by ity o f 00:00: mouth [place] 00 every 4 Medical (four) Branch hours. traMADOL 50 2017-0 Yes 50mg Take 1 Univ ers mg tablet 3-02 tablet by ity o f 00:00: mouth [place] 00 every 4 Medical (four) Branch hours. traMADOL 50 2017-0 Yes 50mg Take 1 Univ ers mg tablet 3-02 tablet by ity o f 00:00: mouth [place] 00 every 4 Medical (four) Branch hours. traMADOL 50 2017-0 Yes 50mg Take 1 Univ ers mg tablet 3-02 tablet by ity o f 00:00: mouth [place] 00 every 4 Medical (four) Branch hours. traMADOL 50 2017-0 Yes 50mg Take 1 Univ ers mg tablet 3-02 tablet by ity o f 00:00: mouth [place] 00 every 4 Medical (four) Branch hours. Topmost Topmost Yes Na Melchor 1 tablet Comm on Thyroid Thyroid on an Spirit empty - [facility] stomach [facility] Vitamin D3 Vitamin D3 Yes Na Melchor not Common Complete Complete defined Spir it [facility] Pantoprazol Pantoprazol Yes Na Melchor 1 tablet Common e Sodium e Sodium [facility] Gleevec Gleevec Yes Na Melchor 1 tablet Co mmon with a Spirit meal and a - CHI large [facility] glass [facility] Multaq Multaq Yes Na Melchor TAKE Common ONE-HALF Spirit TABLET BY - CHI MOUTH [facility] Clindamycin Clindamycin Yes Na Melchor 1 capsules Common HCl HCl [facility] Multaq Multaq Yes Na Melchor 1/2 tablet Co mmon with meals [facility] Macrobid Macrobid Yes Na Melchor 1 capsule Common with food [facility] Macrobid Macrobid No 1{capsu BID Macrobid 100 MG 100 MG le_with 100 MG _food} Aspir-Low Aspir-Low No 1{table QD Aspir-Low 81 MG 81 MG t} 81 MG Topmost Topmost No 1{table QD Topmost Thyroid 60 Thyroid 60 t_on_an Thyroid 60 MG MG _empty_ MG stomach } Pantoprazol Pantoprazol No 1{table QD Pantoprazo e Sodium 40 e Sodium 40 t} le Sodium MG MG 40 MG Clindamycin Clindamycin No 1{capsu QID Clindamyci HCl 300 MG HCl 300 MG les} n HCl 300 MG Vitamin D3 Vitamin D3 No Vitamin D3 Complete - Complete - Complete - Gleevec 400 Gleevec 400 No 1{table QD Gleevec MG MG t_with_ 400 MG a_meal_ and_a_l arge_gl ass_of_ water} Multaq 400 Multaq 400 No Multaq 400 MG MG MG Multaq 400 Multaq 400 No BID Multaq 400 MG MG MG Macrobid Macrobid No 1{capsu BID Macrobid 100 MG 100 MG le_with 100 MG _food} Aspir-Low Aspir-Low No 1{table QD Aspir-Low 81 MG 81 MG t} 81 MG Topmost Top[place] No 1{table QD Topmost Thyroid 60 Thyroid 60 t_on_an Thyroid 60 MG MG _empty_ MG stomach } Pantoprazol Pantoprazol No 1{table QD Pantoprazo e Sodium 40 e Sodium 40 t} le Sodium MG MG 40 MG Clindamycin Clindamycin No 1{capsu QID Clindamyci HCl 300 MG HCl 300 MG les} n HCl 300 MG Vitamin D3 Vitamin D3 No Vitamin D3 Complete - Complete - Complete - Gleevec 400 Gleevec 400 No 1{table QD Gleevec MG MG t_with_ 400 MG a_meal_ and_a_l arge_gl ass_of_ water} Multaq 400 Multaq 400 No Multaq 400 MG MG MG Multaq 400 Multaq 400 No BID Multaq 400 MG MG MG Macrobid Macrobid No 1{capsu BID 100 MG 100 MG le_with _food} Aspir-Low Aspir-Low No 1{table QD 81 MG 81 MG t} Multaq 400 Multaq 400 No MG MG Multaq 400 Multaq 400 No BID MG MG Clindamycin Clindamycin No 1{capsu QID HCl 300 MG HCl 300 MG les} [facility] No 1{table QD Thyroid 60 Thyroid 60 t_on_an MG MG _empty_ stomach } Pantoprazol Pantoprazol No 1{table QD e Sodium 40 e Sodium 40 t} MG MG Vitamin D3 Vitamin D3 No Complete - Complete - Gleevec 400 Gleevec 400 No 1{table QD MG MG t_with_ a_meal_ and_a_l arge_gl ass_of_ water} Macrobid Macrobid No 1{capsu BID 100 MG 100 MG le_with _food} Aspir-Low Aspir-Low No 1{table QD 81 MG 81 MG t} Multaq 400 Multaq 400 No MG MG Multaq 400 Multaq 400 No BID MG MG Clindamycin Clindamycin No 1{capsu QID HCl 300 MG HCl 300 MG les} [facility] No 1{table QD Thyroid 60 Thyroid 60 t_on_an MG MG _empty_ stomach } Pantoprazol Pantoprazol No 1{table QD e Sodium 40 e Sodium 40 t} MG MG Vitamin D3 Vitamin D3 No Complete - Complete - Gleevec 400 Gleevec 400 No 1{table QD MG MG t_with_ a_meal_ and_a_l arge_gl ass_of_ water} [facility] No 1{table QD Topmost Thyroid 60 Thyroid 60 t_on_an Thyroid 60 MG MG _empty_ MG stomach } Multaq 400 Multaq 400 No BID Multaq 400 MG MG MG Aspir-Low Aspir-Low No 1{table QD Aspir-Low 81 MG 81 MG t} 81 MG Pantoprazol Pantoprazol No 1{table QD Pantoprazo e Sodium 40 e Sodium 40 t} le Sodium MG MG 40 MG Macrobid Macrobid No 1{capsu BID Macrobid 100 MG 100 MG le_with 100 MG _food} Vitamin D3 Vitamin D3 No Vitamin D3 Complete - Complete - Complete - Clindamycin Clindamycin No 1{capsu QID Clindamyci HCl 300 MG HCl 300 MG les} n HCl 300 MG Multaq 400 Multaq 400 No Multaq 400 MG MG MG Gleevec 400 Gleevec 400 No 1{table QD Gleevec MG MG t_with_ 400 MG a_meal_ and_a_l arge_gl ass_of_ water} Clindamycin Clindamycin No 1{capsu QID Clindamyci HCl 300 MG HCl 300 MG les} n HCl 300 MG Topmost [facility] No 1{table QD Topmost Thyroid 60 Thyroid 60 t_on_an Thyroid 60 MG MG _empty_ MG stomach } Multaq 400 Multaq 400 No BID Multaq 400 MG MG MG Aspir-Low Aspir-Low No 1{table QD Aspir-Low 81 MG 81 MG t} 81 MG Pantoprazol Pantoprazol No 1{table QD Pantoprazo e Sodium 40 e Sodium 40 t} le Sodium MG MG 40 MG Macrobid Macrobid No 1{capsu BID Macrobid 100 MG 100 MG le_with 100 MG _food} Vitamin D3 Vitamin D3 No Vitamin D3 Complete - Complete - Complete - EPINEPHrine EPINEPHrine No EPINEPHrin 0.3 0.3 e 0.3 MG/0.3ML MG/0.3ML MG/0.3ML Multaq 400 Multaq 400 No Multaq 400 MG MG MG Gleevec 400 Gleevec 400 No 1{table QD Gleevec MG MG t_with_ 400 MG a_meal_ and_a_l arge_gl ass_of_ water} Aspir-Low Aspir-Low No 1{table QD Aspir-Low 81 MG 81 MG t} 81 MG Clindamycin Clindamycin No 1{capsu QID Clindamyci HCl 300 MG HCl 300 MG les} n HCl 300 MG EPINEPHrine EPINEPHrine No EPINEPHrin 0.3 0.3 e 0.3 MG/0.3ML MG/0.3ML MG/0.3ML Multaq 400 Multaq 400 No Multaq 400 MG MG MG Vitamin D3 Vitamin D3 No Vitamin D3 Complete - Complete - Complete - Pantoprazol Pantoprazol No 1{table QD Pantoprazo e Sodium 40 e Sodium 40 t} le Sodium MG MG 40 MG Topmost Topmost No 1{table QD Topmost Thyroid 60 Thyroid 60 t_on_an Thyroid 60 MG MG _empty_ MG stomach } Gleevec 400 Gleevec 400 No 1{table QD Gleevec MG MG t_with_ 400 MG a_meal_ and_a_l arge_gl ass_of_ water} Multaq 400 Multaq 400 No BID Multaq 400 MG MG MG Macrobid Macrobid No 1{capsu BID Macrobid 100 MG 100 MG le_with 100 MG _food} Aspir-Low Aspir-Low No 1{table QD Aspir-Low 81 MG 81 MG t} 81 MG Clindamycin Clindamycin No 1{capsu QID Clindamyci HCl 300 MG HCl 300 MG les} n HCl 300 MG EPINEPHrine EPINEPHrine No EPINEPHrin 0.3 0.3 e 0.3 MG/0.3ML MG/0.3ML MG/0.3ML Multaq 400 Multaq 400 No Multaq 400 MG MG MG Vitamin D3 Vitamin D3 No Vitamin D3 Complete - Complete - Complete - Pantoprazol Pantoprazol No 1{table QD Pantoprazo e Sodium 40 e Sodium 40 t} le Sodium MG MG 40 MG Jose Enrique Quispe No 1{table QD Topmost Thyroid 60 Thyroid 60 t_on_an Thyroid 60 MG MG _empty_ MG stomach } Gleevec 400 Gleevec 400 No 1{table QD Gleevec MG MG t_with_ 400 MG a_meal_ and_a_l arge_gl ass_of_ water} Multaq 400 Multaq 400 No BID Multaq 400 MG MG MG Macrobid Macrobid No 1{capsu BID Macrobid 100 MG 100 MG le_with 100 MG _food} Aspir-Low Aspir-Low No 1{table QD Aspir-Low 81 MG 81 MG t} 81 MG Clindamycin Clindamycin No 1{capsu QID Clindamyci HCl 300 MG HCl 300 MG les} n HCl 300 MG EPINEPHrine EPINEPHrine No EPINEPHrin 0.3 0.3 e 0.3 MG/0.3ML MG/0.3ML MG/0.3ML Multaq 400 Multaq 400 No Multaq 400 MG MG MG Vitamin D3 Vitamin D3 No Vitamin D3 Complete - Complete - Complete - Pantoprazol Pantoprazol No 1{table QD Pantoprazo e Sodium 40 e Sodium 40 t} le Sodium MG MG 40 MG Jose Enrique Quispe No 1{table QD Topmost Thyroid 60 Thyroid 60 t_on_an Thyroid 60 MG MG _empty_ MG stomach } Gleevec 400 Gleevec 400 No 1{table QD Gleevec MG MG t_with_ 400 MG a_meal_ and_a_l arge_gl ass_of_ water} Multaq 400 Multaq 400 No BID Multaq 400 MG MG MG Macrobid Macrobid No 1{capsu BID Macrobid 100 MG 100 MG le_with 100 MG _food} Pantoprazol Pantoprazol No 1{table QD Pantoprazo e Sodium 40 e Sodium 40 t} le Sodium MG MG 40 MG Multaq 400 Multaq 400 No Multaq 400 MG MG MG Clindamycin Clindamycin No 1{capsu QID Clindamyci HCl 300 MG HCl 300 MG les} n HCl 300 MG Gleevec 400 Gleevec 400 No 1{table QD Gleevec MG MG t_with_ 400 MG a_meal_ and_a_l arge_gl ass_of_ water} Multaq 400 Multaq 400 No BID Multaq 400 MG MG MG Vitamin D3 Vitamin D3 No Vitamin D3 Complete - Complete - Complete - Aspir-Low Aspir-Low No 1{table QD Aspir-Low 81 MG 81 MG t} 81 MG EPINEPHrine EPINEPHrine No EPINEPHrin 0.3 0.3 e 0.3 MG/0.3ML MG/0.3ML MG/0.3ML Topmostscot Quis[place] No 1{table QD Topmost Thyroid 60 Thyroid 60 t_on_an Thyroid 60 MG MG _empty_ MG stomach } Macrobid Macrobid No 1{capsu BID Macrobid 100 MG 100 MG le_with 100 MG _food} Pantoprazol Pantoprazol No 1{table QD Pantoprazo e Sodium 40 e Sodium 40 t} le Sodium MG MG 40 MG Multaq 400 Multaq 400 No Multaq 400 MG MG MG Clindamycin Clindamycin No 1{capsu QID Clindamyci HCl 300 MG HCl 300 MG les} n HCl 300 MG Gleevec 400 Gleevec 400 No 1{table QD Gleevec MG MG t_with_ 400 MG a_meal_ and_a_l arge_gl ass_of_ water} Multaq 400 Multaq 400 No BID Multaq 400 MG MG MG Vitamin D3 Vitamin D3 No Vitamin D3 Complete - Complete - Complete - Aspir-Low Aspir-Low No 1{table QD Aspir-Low 81 MG 81 MG t} 81 MG EPINEPHrine EPINEPHrine No EPINEPHrin 0.3 0.3 e 0.3 MG/0.3ML MG/0.3ML MG/0.3ML Topmost Topmost No 1{table QD Topmost Thyroid 60 Thyroid 60 t_on_an Thyroid 60 MG MG _empty_ MG stomach } Macrobid Macrobid No 1{capsu BID Macrobid 100 MG 100 MG le_with 100 MG _food} Pantoprazol Pantoprazol No 1{table QD Pantoprazo e Sodium 40 e Sodium 40 t} le Sodium MG MG 40 MG Multaq 400 Multaq 400 No Multaq 400 MG MG MG Clindamycin Clindamycin No 1{capsu QID Clindamyci HCl 300 MG HCl 300 MG les} n HCl 300 MG Gleevec 400 Gleevec 400 No 1{table QD Gleevec MG MG t_with_ 400 MG a_meal_ and_a_l arge_gl ass_of_ water} Multaq 400 Multaq 400 No BID Multaq 400 MG MG MG Vitamin D3 Vitamin D3 No Vitamin D3 Complete - Complete - Complete - Aspir-Low Aspir-Low No 1{table QD Aspir-Low 81 MG 81 MG t} 81 MG EPINEPHrine EPINEPHrine No EPINEPHrin 0.3 0.3 e 0.3 MG/0.3ML MG/0.3ML MG/0.3ML Topmost Topmost No 1{table QD Topmost Thyroid 60 Thyroid 60 t_on_an Thyroid 60 MG MG _empty_ MG stomach } Macrobid Macrobid No 1{capsu BID Macrobid 100 MG 100 MG le_with 100 MG _food} Vitamin D3 Vitamin D3 No Vitamin D3 Complete - Complete - Complete - Topmost Topmost No 1{table QD Topmost Thyroid 60 Thyroid 60 t_on_an Thyroid 60 MG MG _empty_ MG stomach } Aspir-Low Aspir-Low No 1{table QD Aspir-Low 81 MG 81 MG t} 81 MG Pantoprazol Pantoprazol No 1{table QD Pantoprazo e Sodium 40 e Sodium 40 t} le Sodium MG MG 40 MG EPINEPHrine EPINEPHrine No EPINEPHrin 0.3 0.3 e 0.3 MG/0.3ML MG/0.3ML MG/0.3ML Clindamycin Clindamycin No 1{capsu QID Clindamyci HCl 300 MG HCl 300 MG les} n HCl 300 MG Multaq 400 Multaq 400 No BID Multaq 400 MG MG MG Macrobid Macrobid No 1{capsu BID Macrobid 100 MG 100 MG le_with 100 MG _food} Gleevec 400 Gleevec 400 No 1{table QD Gleevec MG MG t_with_ 400 MG a_meal_ and_a_l arge_gl ass_of_ water} Multaq 400 Multaq 400 No Multaq 400 MG MG MG Pantoprazol Pantoprazol No 1{table QD Pantoprazo e Sodium 40 e Sodium 40 t} le Sodium MG MG 40 MG Multaq 400 Multaq 400 No Multaq 400 MG MG MG Clindamycin Clindamycin No 1{capsu QID Clindamyci HCl 300 MG HCl 300 MG les} n HCl 300 MG Gleevec 400 Gleevec 400 No 1{table QD Gleevec MG MG t_with_ 400 MG a_meal_ and_a_l arge_gl ass_of_ water} Multaq 400 Multaq 400 No BID Multaq 400 MG MG MG Vitamin D3 Vitamin D3 No Vitamin D3 Complete - Complete - Complete - Aspir-Low Aspir-Low No 1{table QD Aspir-Low 81 MG 81 MG t} 81 MG EPINEPHrine EPINEPHrine No EPINEPHrin 0.3 0.3 e 0.3 MG/0.3ML MG/0.3ML MG/0.3ML Topmost Topmost No 1{table QD Topmost Thyroid 60 Thyroid 60 t_on_an Thyroid 60 MG MG _empty_ MG stomach } Macrobid Macrobid No 1{capsu BID Macrobid 100 MG 100 MG le_with 100 MG _food} Vital Signs Vital Name Observation Time Observation Value Comments Source Systolic blood 2022-01-28 19:57:00 118 mm[Hg] Univer [facility]ity of [facility] Diastolic blood 2022-01-28 19:57:00 74 mm[Hg] Unive rsity of [facility] Heart rate 2022-01-28 19:57:00 80 /min [facility] Body temperature 2022-01-28 19:57:00 37.44 Odalys [facility] Respiratory rate 2022-01-28 19:57:00 16 /min Univ ersity of [facility] Body height 2022-01-28 19:57:00 152.4 cm [facility] Body weight 2022-01-28 19:57:00 62.143 kg [facility] BMI 2022-01-28 19:57:00 26.76 kg/m2 [facility] Oxygen saturation in 2022-01-28 19:57:00 98 /min University of Arterial blood by [facility] Pulse oximetry Branch Systolic blood 2022-01-27 21:02:31 118 mm[Hg] Univer sity of [facility] Diastolic blood 2022-01-27 21:02:31 65 mm[Hg] Unive rsity of [facility] Heart rate 2022-01-27 21:02:31 75 /min [facility] Respiratory rate 2022-01-27 21:02:31 18 /min Univ ers[facility] Oxygen saturation in 2022-01-27 21:02:31 97 /min University of Arterial blood by [facility] Pulse oximetry Branch Body temperature 2022-01-27 19:00:00 37.17 Odalys [facility] Body weight 2022-01-27 19:00:00 61.689 kg [facility] BMI 2022-01-27 19:00:00 25.70 kg/m2 [facility] height 2021-12-31 13:00:00 60.00 [in_i] [facility] weight 2021-12-31 13:00:00 138.6 [lb_av] Common [facility] temperature 2021-12-31 13:00:00 97.5 [degF] Common S pirit [facility] bmi 2021-12-31 13:00:00 27.07 kg/m2 Common S [facility] oximetry 2021-12-31 13:00:00 98 % Common S [facility] respiratory rate 2021-12-31 13:00:00 15 /min Comm on [facility] blood pressure 2021-12-31 13:00:00 123 mm[Hg] Common [facility] - systolic [facility] blood pressure 2021-12-31 13:00:00 58 mm[Hg] Common [facility] diastolic [facility] height 2021-06-18 11:40:00 60.00 [in_i] Common [facility] weight 2021-06-18 11:40:00 134 [lb_av] Common S pirit [facility] temperature 2021-06-18 11:40:00 96.5 [degF] Common [facility] bmi 2021-06-18 11:40:00 26.17 kg/m2 Common S [facility] oximetry 2021-06-18 11:40:00 96 % Common S pirit [facility] blood pressure 2021-06-18 11:40:00 115 mm[Hg] Common [facility] - systolic [facility] blood pressure 2021-06-18 11:40:00 85 mm[Hg] Common [facility] height 2021-06-18 10:00:00 60.00 [in_i] Common S pirit [facility] weight 2021-06-18 10:00:00 134 [lb_av] [facility] temperature 2021-06-18 10:00:00 96.5 [degF] Common [facility] bmi 2021-06-18 10:00:00 26.17 kg/m2 Common S [facility] oximetry 2021-06-18 10:00:00 96 % Common S p[facility] - [facility] respiratory rate 2021-06-18 10:00:00 17 /min Comm on [facility] blood pressure 2021-06-18 10:00:00 115 mm[Hg] Common [facility] blood pressure 2021-06-18 10:00:00 58 mm[Hg] Common [facility] Systolic blood 2021-01-08 16:22:00 143 mm[Hg] Univer sity [facility] Diastolic blood 2021-01-08 16:22:00 78 mm[Hg] [facility] Heart rate 2021-01-08 16:21:00 85 /min [facility] Body temperature 2021-01-08 16:21:00 37.22 Odalys [facility] Respiratory rate 2021-01-08 16:21:00 18 /min [facility] Body height 2021-01-08 16:21:00 154.9 cm [facility] Body weight 2021-01-08 16:21:00 61.689 kg [facility] BMI 2021-01-08 16:21:00 25.70 kg/m2 [facility] Oxygen saturation in 2021-01-08 16:21:00 98 /min [facility] Arterial blood by [facility] Pulse oximetry Branch Procedures Procedure Date / Time Performed Performing Clinician Goldie e CT ABDOMEN PELVIS WO 2022-01-27 19:43:48 Brittni Gutierrez [facility] LIPASE 2022-01-27 19:33:00 Brittni Gutierrez [facility] TROPONIN I 2022-01-27 19:33:00 Brittni Gutierrez [facility] COMP. METABOLIC PANEL 2022-01-27 19:33:[address] [facility] ([id number]) [facility] CBC WITH DIFF 2022-01-27 19:33:00 Brittni Gutierrez [facility] URINALYSIS 2022-01-27 19:33:00 Brittni Gutierrez [facility] CONSENT/REFUSAL FOR 2022-01-27 18:58:06 Doctor Unassigned, No [facility] Name Medical Branch TREATMENT NOTICE OF PRIVACY 2022-01-27 18:57:42 Doctor Unassigned, No Univ [facility] Name Medical Branch ASSIGNMENT OF BENEFITS 2021-01-08 15:49:35 Doctor Unassigned, No [facility] POCT URINALYSIS 2021-01-08 00:00:00 Jeaneth Jolley [place] [facility] Encounters Start End Encounter Admission Attending Care Care Encounter Source Date/Time Date/Time Type Type Clinicians Facility Department ID 2022-04-17 Outpatient Melchor, Na STLMLC STLMLC [id number] 2 Common 14:37:[id number] [facility] 2022-02-18 Outpatient Melchor, Na STLMLC STLMLC [id number] 2 Common 14:20:[id number] [facility] 2021 Outpatient Melchor, Na STLMLC STLMLC [id number] 2 Common 14:10:[id number] [facility] 2021 Outpatient Melchor, Na STLMLC STLMLC [id number] 2 Common 13:58:[id number] [facility] 2021 Outpatient Melchor, Na STLMLC STLMLC [id number] 2 Common 13:38:[id number] [facility] 2021 Outpatient Melchor, Na STLMLC STLMLC [id number] 2 Common 13:35:[id number] [facility] 2021 Outpatient Melchor, Na STLMLC STLMLC [id number] 2 Common 12:40:[id number] [facility] 2021 Outpatient Melchor, Na STLMLC STLMLC [id number] 2 Common 12:38:[id number] [facility] 2021 Outpatient Melchor, Na STLMLC STLMLC [id number] 2 Common 12:37:[id number] [facility] 2021 Outpatient Melchor, Na STLMLC STLMLC [id number] 2 Common 12:36:[id number] [facility] 2021 Outpatient Melchor, Na STLMLC STLMLC [id number] 2 Common 12:31:[id number] [facility] 2021 Outpatient Melchor, Na STLMLC STLMLC [id number] 2 Common 12:22:[id number] [facility] 2021 Outpatient Melchor, Na STLMLC STLMLC [id number] 2 Common 12:20:[id number] [facility] 2021 Outpatient Melchor, Na STLMLC STLMLC [id number] 2 Common 11:31:[id number] [facility] 2021 Outpatient Melchor, Na STLMLC STLMLC [id number] 2 Common 11:18:[id number] [facility] 2021 Outpatient Melchor, Na STLMLC STLMLC [id number] 2 Common 11:00:[id number] [facility] 2022-05-23 2022-05-23 (TEL) STLMLC STLMLC [id number] Co mmon 00:00:00 00:00:[address] [facility] 2022-05-16 2022-05-16 (TEL) STLMLC STLMLC [id number] Co mmon 00:00:00 00:00:[address] [facility] 2022-04-21 2022-04-21 (TEL) STLMLC STLMLC [id number] Co mmon 00:00:00 00:00:[address] [facility] 2022-04-21 2022-04-21 OL DIG E/M STLMLC STLMLC [id number] Common 00:00:00 00:00:00 [facility] 11-20 [facility] 2022-04-10 2022-04-10 (TEL) STLMLC STLMLC [id number] Co mmon 00:00:00 00:00:00 [facility] 2022-02-21 2022-02-21 [place] [id number] Devoted 07:08:00 07:08:00 0715 [facility]ica l [facility] 2022-01-28 2022-01-28 Nurse Nurse, [facility] [id number] Univers 14:45:00 15:05:00 Visit Prema Mcnally [facility] [id number] itFlash [id number] Rubio as MOHIT?BLEA [phone] [address] MEDICAL OFFICE BUILDING 2022-01-28 2022-01-28 Outpatient R LEVAR [facility] [id number] Univers 14:45:00 14:45:00 PREMA malik o f [facility] 2022-01-27 2022-01-27 Emergency [facility] [id number] Univers 14:02:00 16:20:00 BRITTNI malik [facility] 2022-01-27 2022-01-27 Emergency [facility] [id number] Univers 14:02:00 16:20:00 Brittni CHILEL [id number] Dani [id number] [facility] [phone] [address] 2022-01-16 2022-01-16 (TEL) STLMLC STLC [id number] Co mmon 00:00:00 00:00:00 [facility] 2021-12-31 2021-12-31 OFFICE STLMLC STLC [id number] Co mmon 00:00:00 00:00:00 VISIT Spirit ESTAB PT - [facility] LEVEL 4 [facility] 2021-12-09 2021-12-09 (TEL) STLMLC STLMLC [id number] Co mmon 00:00:00 00:00:00 [facility] 2021-11-08 2021-11-08 (TEL) STLMLC STLMLC [id number] Co mmon 00:00:00 00:00:00 [facility] 2021-08-16 2021-08-16 Laboratory Only, Ang Db Test [facility] 1.2.8 40.114 [id number] Univers 13:30:00 13:45:00 Only Verónica Reyes [facility] [id number] itFlash [id number] Rubio as MOHIT?BLEA [phone] Al dical [address] MEDICAL OFFICE BUILDING 2021-08-16 2021-08-16 Outpatient R ERIC [facility] [id number] Univers 13:30:00 13:30:00 VERÓNICA ity o f [facility] 2021-08-16 2021-08-16 [facility] [id number] Univers 13:00:00 13:00:00 JENNIFER malik [facility] 2021-06-19 2021-06-19 Outpatient DMG [facility] [id number] Devoted 08:00:00 08:00:00 [id number] Medica l Group 2021-06-18 2021-06-18 OFFICE STLMLC STLC [id number] Co mmon 00:00:00 00:00:00 VISIT EST Spir it PT LEVEL 3 - [facility] 2021-06-18 2021-06-18 SUB ANNUAL STLMLC STLMLC [id number] Common 00:00:00 00:00:00 MCR [facility] VISIT [facility] 2021-06-06 2021-06-06 (TEL) STLMLC STLMLC [id number] Co mmon 00:00:00 00:00:00 [facility] 2021-05-13 2021-05-13 (TEL) STLMLC STLMLC [id number] Co mmon 00:00:00 00:00:[address] [facility] 2021-05-03 2021-05-03 [place] [id number] Devoted 08:00:00 08:00:00 0924 Medica l Group 2021-03-29 2021-03-29 Outpatient STLMLC STLMLC [id number] Common 00:00:00 00:00:[address] [facility] 2021-03-25 2021-03-25 Outpatient STLMLC STLMLC [id number] Common 00:00:00 00:00:[address] [facility] 2021-03-18 2021-03-18 Outpatient STLMLC STLMLC [id number] Common 00:00:00 00:00:[address] [facility] 2021-01-21 2021-01-21 Outpatient STLMLC STLMLC [id number] Common 00:00:00 00:00:[address] [facility] 2021-01-21 2021-01-21 Outpatient STLMLC STLMLC [id number] Common 00:00:00 00:00:[address] [facility] 2021-01-18 2021-01-18 Outpatient STLMLC STLMLC [id number] Common 00:00:00 00:00:[address] [facility] 2021-01-08 2021-01-08 Outpatient Michelle NELSON [facility] [id number] Univers 11:00:00 12:06:23 AMIE ity of [facility] 2021-01-08 2021-01-08 Urgent Provider, [facility] Urgent Care [facility] 1.2.840.114 [id number] Univers 10:52:20 12:06:23 Care Unknown, Attending Health [id number] ity of [place] [id number] Rubio as Professio [phone] [address] Office Building One 2021-01-08 2021-01-08 Orders Doctor GOYO 1.2.840.114 [id number] Univers 00:00:00 00:00:00 Only Unassigned, CORBIN 350.1.13.10 ity [place] [facility] [id number] Rubio as [phone] [address] 2020-12-18 2020-12-18 Outpatient STLMLC STLMLC [id number] Common 00:00:00 00:00:[address] [facility] 2020-11-08 2020-11-08 Outpatient STLMLC STLMLC [id number] Common 00:00:00 00:00:[address] [facility] 2020-10-24 2020-10-24 Outpatient STLMLC STLMLC [id number] Common 00:00:00 00:00:[address] [facility] 2020-10-16 2020-10-16 Outpatient STLMLC STLMLC [id number] Common 00:00:00 00:00:[address] [facility] 2020-06-25 2020-06-25 Outpatient STLMLC STLMLC [id number] Common 00:00:00 00:00:[address] [facility] 2020-06-19 2020-06-19 Outpatient STLMLC STLMLC [id number] Common 00:00:00 00:00:[address] [facility] 2020-06-05 2020-06-05 Outpatient STLMLC STLMLC [id number] Common 00:00:00 00:00:[address] [facility] 2020-04-18 2020-04-18 [id number] Common 16:59:00 16:59:[address] [facility] 2020-04-18 2020-04-18 [facility] [id number] Common 16:59:00 16:59:[address] [facility] 2020-03-08 2020-03-08 [facility] [id number] Common 15:32:00 15:32:[address] [facility] 2019-12-26 2019-12-26 [facility] [id number] Common 10:20:00 10:20:[address] [facility] 2019-12-05 2019-12-05 [facility] [id number] Common 14:00:00 14:00:[address] Sp[address] [facility] 2019-11-03 2019-11-03 [facility] [id number] Common 09:28:00 09:28:[address] [facility] [facility] 2019-09-06 2019-09-06 [facility] [id number] Common 09:40:00 09:40:[address] [facility] [facility] 2019-08-29 2019-08-29 [facility] [id number] Common 16:20:00 16:20:[address] [facility] 2019-06-28 2019-06-28 [facility] [id number] Common 10:24:00 10:24:[address] [facility] [facility] 2019-06-15 2019-06-15 [facility] [id number] Common 15:27:00 15:27:[address] [facility] [facility] 2019-06-06 2019-06-06 [facility] [id number] Common 09:40:00 09:40:[address] [facility] [facility] 2019-03-18 2019-03-18 [facility] [id number] Common 16:01:00 16:01:[address] Sp[address] [facility] 2019-03-02 2019-03-02 Out[facility] [id number] Common 09:40:00 09:40:[address] Sp[address] [facility] 2019-02-18 2019-02-18 Out[facility] [id number] Common 15:26:00 15:26:[address] [facility] [facility] 2018-12-15 2018-12-15 [facility] [id number] Common 16:50:00 16:50:[address] [facility] [facility] 2018-11-25 2018-11-25 Out[facility] [id number] Common 11:00:00 11:00:[address] Sp[address] [facility] Results Test Description Test Time Test Comments Results Result Comments Source TROPONIN I 2022-01-27 20:25:01 Test Item Value Reference Range Interpretation Comme nts TROPONIN I (test code = 0.003 ng/mL See_Comment [Au tomated message] The [id number]) system which ge nerated this result tra nsmitted reference range : <=0.034. The reference r rafi was not used to int erpret this result as normal/abnormal . DAMON (test code = DAMON) Reference (Normal) Range (defined by the 99th percentile reference limit): <= 0.034 ng/mL Note: Cardiac troponin begins to rise 3-4 hours after the onset of ischemia. Repeat in 4-6 hours if the sample was drawn within 3-4 hours of the onset of the symptom and found normal. Diagnosis of myocardial injury is made with acute changes in cTn concentrations with at least one serial sample above the 99th percentile upper reference limit (URL), taken together with the patient's clinical presentation. Biotin has been reported to cause a negative bias, interpret results relative to patient's use of biotin. Lab Interpretation Normal (test code = 81854-9) [facility]. METABOLIC PANEL (64622)2022-01-27 20:13:39 Test Item Value Reference Range Interpretation Comments NA (test code = 139 mmol/L 135-145 8533977056) K (test code = 4.0 mmol/L 3.5-5.0 3812052815) CL (test code = 105 mmol/L 98-108 3663625184) CO2 TOTAL (test code = 27 mmol/L 23-31 5440931579) AGAP (test code = 2-16 6015520578) BUN (test code = 18 mg/dL 7-23 2501292621) GLUCOSE (test code = 100 mg/dL 70-110 6585124245) CREATININE (test code = 1.28 mg/dL 0.50-1.04 H 6165732612) TOTAL BILI (test code = 0.6 mg/dL 0.1-1.8 5993074632) CALCIUM (test code = 8.9 mg/dL 8.6-10.6 6262001250) T PROTEIN (test code = 7.4 g/dL 6.3-8.2 4273427660) ALBUMIN (test code = 4.3 g/dL 3.5-5.0 8681449382) ALK PHOS (test code = 62 U/L 34-122 9745985423) ALTv (test code = 16 U/L 5-35 1742-6) AST(SGOT) (test code = 27 U/L 13-40 5533769489) eGFR (test code = mL/min/1.73m2 9196378316) DAMON (test code = DAMON) Association of Glomerular Filtration Rate (GFR) and Staging of Kidney Disease* + --+ --+ ------+| GFR (mL/min/1.73 m2) ?| With Kidney Damage ?| ?Without Kidney Damage+ --------+ --------+ +| ?>90 ?| ?Stage one ?| ? Normal ?+ ---+ ---+ -------+| ?60-89 ?| ?Stage two ?| ? Decreased GFR ? + --+ --+ ------+| ?30-59 ?| ?Stage three ?| ? Stage three ? + --+ --+ ------+| ?15-29 ?| ?Stage four ? | ? Stage four ?+ ---+ ---+ -------+| ?<15 (or dialysis) ? ?| ?Stage five ? | ? Stage five ?+ ---+ ---+ -------+ *Each stage assumes the associated GFR level has been in effect for at least three months. ?Stages 1 to 5, with or without kidney disease, indicate chronic kidney disease. Notes: Determination of stages one and two (with eGFR >59mL/min/1.73 m2) requires estimation of kidney damage for at least three months as defined by structural or functional abnormalities of the kidney, manifested by either:Pathological abnormalities or Markers of kidney damage (including abnormalities in the composition of the blood or urine or abnormalities in imaging tests). Lab Interpretation Abnormal (test code = 24373-9) [facility] Test Item Value Reference Range Interpretation Comments LIPASE (test code = 7478137482) 110 U/L 0-220 Lab Interpretation (test code = Normal 67490-0) [facility] [id number] 19:54:35 Test Item Value Reference Range Interpretation Comments WBC (test code = See_Comment [Automated 9690-2) message] The sy stem which generated this result transmitted reference range : 4.30 - 11.10 10*3/?L. The reference range was not used to interpret this result as normal/abnormal . RBC (test code = See_Comment L [Automated 789-8) message] The sy stem which generated this result transmitted reference range : 3.93 - 5.25 10*6/?L. The reference range was not used to interpret this result as normal/abnormal . HGB (test code = 11.9 g/dL 11.6-15.0 718-7) HCT (test code = 35.7 % 35.7-45.2 4544-3) MCV (test code = 94.4 fL 80.6-95.5 787-2) MCH (test code = 31.5 pg 25.9-32.8 785-6) MCHC (test code = 33.3 g/dL 31.6-35.1 786-4) RDW-SD (test code = 45.0 fL 39.0-49.9 21261-8) RDW-CV (test code = 13.0 % 12.0-15.5 788-0) PLT (test code = See_Comment [Automated 777-3) message] The sy stem which generated this result transmitted reference range : 166 - 358 10*3/ ?L. The reference r rafi was not used to interpret this result as normal/abnormal . MPV (test code = 10.3 fL 9.5-12.9 05121-4) NRBC/100 WBC (test See_Comment [Automat ed code = 1714712262) message] The system which generated this result transmitted reference range : 0.0 - 10.0 /100 WBCs. The refer ence range was not u sed to interpret th is result as normal/abnormal . NRBC x10^3 (test code <0.01 See_Comment [Auto mated = 1822715045) message] The s ystem which generated this result transmitted reference range : 10*3/?L. The reference range was not used to interpret this result as normal/abnormal . GRAN MAT (NEUT) % 69.7 % (test code = 770-8) IMM GRAN % (test code 0.40 % = 7889972005) LYMPH % (test code = 20.2 % 736-9) MONO % (test code = 8.3 % 5905-5) EOS % (test code = 1.2 % 713-8) BASO % (test code = 0.2 % 706-2) GRAN MAT x10^3(ANC) 6.35 10*3/uL 1.88-7.09 (test code = 2206602132) IMM GRAN x10^3 (test 0.04 10*3/uL 0.00-0.06 code = 5043831590) LYMPH x10^3 (test code 1.84 10*3/uL 1.32-3.29 = 731-0) MONO x10^3 (test code 0.76 10*3/uL 0.33-0.92 = 742-7) EOS x10^3 (test code = 0.11 10*3/uL 0.03-0.39 711-2) BASO x10^3 (test code <0.03 0.01-0.07 = 704-7) Lab Interpretation Abnormal (test code = 01768-6) [facility] W SPECIFIC [id number] 16:33:00 Test Item Value Reference Range Interpretation Comments POCT U SP GRAV (test code = 1.015 mg/dl 1.005-1.025 3255) POCT PH U (test code = 3254) 5 mg/dl 5-8 POCT U LEUK EST (test code = trace Negative - Negative 3263) POCT U NIT (test code = 3262) negative Negative - Negative POCT U PROT (test code = negative Negative - Negative 3259) POCT U GLU (test code = 3256) negative Negative - Negative POCT U KETONE (test code = negative Negative - Negative 3258) POCT U UROBILI (test code = normal 0.2-1 3260) POCT U BILI (test code = negative Negative - Negative 3261) POCT U BLD (test code = 3257) trace Negative - Negative POCT U COLOR (test code = yellow 3266) POCT U APPEAR (test code = clear 3267) [facility] AntigenSARS-COV 2 AntigenSARS-COV 2 AntigenSARS-COV 2 Antigen"
[2022-06-10 13:36] LABS: Urine Blood 1+ (Negative); Urine Glucose Negative (Negative); Urine Protein Negative (Negative)
[2022-06-10 13:40] LABS: Absolute Lymphocytes (CBC) 1.7 K/uL (0.7-4.9); Hematocrit 35.7 % (36.0-45.0); Lymphocytes % 16.4 % (15.3-44.8); RBC Red Blood Cell Count 3.83 M/uL (3.86-4.86)
[2022-06-10 14:04] LABS: Bilirubin Total 1.1 mg/dL (0.2-1.0); Potassium 3.7 mmol/L (3.5-5.1); Protein, Total 8.2 g/dL (6.4-8.2)
[2022-06-10] MEDS ORDERED: MORPHINE 2 MG/ML SYR ONE (14:06)
[2022-06-10] MEDS ORDERED: ONDANSETRON 4 MG/2 ML VIAL ONE (14:06)
--- NOTE | 2022-06-10 15:53 | RAD REPORT ---
EXAM DESCRIPTION: CT - Abdomen Pelvis Wo Contrast - 06/10/2022 3:33 pm CLINICAL HISTORY: Abdominal pain COMPARISON: 2020 ultrasound TECHNIQUE: Computed axial tomography of the abdomen and pelvis was obtained. IV was not requested. O ral contrast was given. Coronal reconstructions performed. All CT scans are performed using dose optimization technique as appropriate and may include automated exposure control or mA/KV adjustment according to patient size. FINDINGS: The evaluation of solid organs and vessels is limited secondary to the lack of contrast a dministration. The liver, spleen, pancreas, adrenals and kidneys appear grossly normal. The appendix is normal. Small right inguinal hernia Diverticula stem from the colon. Mild to mild stranding adjacent to the sigmoid colon. No abscess. No free air IMPRESSION: Mild to moderate sigmoid diverticulitis
--- NOTE | 2022-06-10 17:26 | EDPHYS ---
Physician Documentation [facility] Name: Joyce Renee Age: 71 yrs Sex: Female : 1950 Arrival Date: 06/10/2022 Time: 12:33 Bed 2 Private MD: Tosin Melchor ED Physician Trent Stone HPI: 06/10 13:45 This 71 yrs old Female presents to ER via Ambulatory with complaints of jmm Abdominal Pain. 13:45 The patient presents with abdominal pain. Onset: The symptoms/episode began/occurred jmm gradually, 3 day(s) ago. The symptoms do not radiate. Associated signs and symptoms: Pertinent positives: constipation, Pertinent negatives: nausea and vomiting, diarrhea. The symptoms are described as achy. This is a 71 year old female with a history of atrial fibrillation, htn, kidney stones that presents to the ED with complaints of lower abdominal pain beginning approx 3 days ago. Patient states pain is similar to previous kidney stones. Admits to foul smelling stool. Complains of some body aches and low grad fever. . Historical: - Allergies: 12:48 Iodine; aa5 - PMHx: 12:48 Atrial Fib; CML; chemotherapy; Hypertension; Kidney stone; Hypothyroidism; aa5 Diverticulosis; - Immunization history:: Adult Immunizations unknown. - Social history:: Smoking status: Patient denies any tobacco usage or history of. ROS: 13:45 Constitutional: Positive for body aches. jmm 13:45 Abdomen/GI: Positive for abdominal pain, constipation. 13:45 All other systems are negative. Exam: 13:45 Constitutional: This is a well developed, well nourished patient who is awake, alert, jmm and in no acute distress. Head/Face: atraumatic. Eyes: EOMI, no conjunctival erythema appreciated ENT: Moist Mucus Membranes Neck: Trachea midline, Supple Chest/axilla: Normal chest wall appearance and motion. Cardiovascular: Regular rate and rhythm. No edema appreciated Respiratory: Normal respirations, no respiratory distress appreciated 13:45 Back: Normal ROM Skin: General appearance color normal MS/ Extremity: Moves all extremities, no obvious deformities appreciated, no edema noted to the lower extremities Neuro: Awake and alert Psych: Behavior is normal, Mood is normal, Patient is cooperative and pleasant 13:45 Abdomen/GI: Inspection: abdomen appears normal, Bowel sounds: normal, Palpation: soft, mild abdominal tenderness, in the right lower quadrant and left lower quadrant. Vital Signs: 12:47 BP 144 / 73; Pulse 89; Resp 16 S; Temp 97.7(TE); Pulse Ox 99% on R/A; Weight 61.69 kg aa5 (R); Height 5 ft. 1 in. (154.94 cm) (R); 18:00 BP 140 / 85; Pulse 87; Resp 16; Pulse Ox 99% on R/A; jd3 12:47 Body Mass Index 25.70 (61.69 kg, 154.94 cm) aa5 MDM: 13:06 Patient medically screened. [facility] 17:22 Data reviewed: vital signs, nurses notes. Counseling: I had a detailed discussion with [facility] the patient and/or guardian regarding: the historical points, exam findings, and any diagnostic results supporting the discharge/admit diagnosis, lab results, radiology results, the need for outpatient follow up, to return to the emergency department if symptoms worsen or persist or if there are any questions or concerns that arise at home. ED course: Pain alleviated in the ED. patient advised to follow up with GI for further evaluation. patient understood and agrees with the plan of care. . 06/10 13:07 Order name: CBC with Diff; Complete Time: 13:44 [facility] 06/10 13:07 Order name: CMP; Complete Time: 14:07 [facility] 06/10 13:07 Order name: Lipase; Complete Time: 14:07 [facility] 06/10 13:08 Order name: CT Abd/Pelvis - PO Contrast Only [facility] 06/10 13:37 Order name: Urine Dipstick-Ancillary; Complete Time: 13:40 [facility] 06/10 13:07 Order name: IV Saline Lock; Complete Time: 13:35 [facility] 06/10 13:07 Order name: Labs collected and sent; Complete Time: 13:35 [facility] 06/10 13:07 Order name: Urine Dipstick-Ancillary (obtain specimen); Complete Time: 13:35 [facility] 06/10 13:29 Order name: Abdomen ; Complete Time: 16:04 EDMS Administered Medications: 14:13 Drug: morphine 2 mg Route: IVP; Infused Over: 4 mins; Site: left antecubital; jd3 15:00 Follow up: Response: No adverse reaction; RASS: Alert and Calm (0) jd3 14:13 Drug: Zofran (Ondansetron) 4 mg Route: IVP; Site: left antecubital; jd3 15:00 Follow up: Response: No adverse reaction jd3 18:07 Drug: LevaQUIN (levofloxacin) 750 mg Route: PO; jd3 18:18 Follow up: Response: Medication administered at discharge. jd3 18:07 Drug: metroNIDAZOLE 500 mg Route: PO; jd3 18:18 Follow up: Response: Medication administered at discharge. jd3 Disposition: 16:38 Co-signature as Attending Physician, Trent WILSON was immediately available on-site ms3 in the Emergency Department for consultation in the care of the patient. Disposition Summary: 06/10/22 17:26 Discharge Ordered Location: Home [facility] Condition: Stable [facility] Diagnosis - Acute Diverticulitis [facility] Followup: [facility] - With: Cesar Rojas MD - When: 2 - 3 days - Reason: Recheck today's complaints, Continuance of care, Re-evaluation by your physician Discharge Instructions: - Discharge Summary Sheet [facility] - Diverticulitis [facility] Forms: - Medication Reconciliation Form [facility] - Thank You Letter [facility] - Antibiotic Education [facility] - Prescription Opioid Use [facility] Prescriptions: - levofloxacin 750 mg Oral tablet - take 1 tablet by ORAL route once daily for 9 days; 9 tablet; Refills: 0, [facility] Product Selection Permitted - Metronidazole 500 mg Oral Tablet - take 1 tablet by ORAL route every 6 hours for 10 days; 40 tablet; Refills: 0, [facility] Product Selection Permitted - dicyclomine 20 mg Oral Tablet - take 1 tablet by ORAL route 4 times per day; 30 tablet; Refills: 0, Product [facility] Selection Permitted Signatures: Dispatcher [employer] EDMS Ron Franco PA PA jmm Calderon, Audri RN RN aa5 Supa Garcias RN RN Trent Valdez DO DO ms3 Corrections: (The following items were deleted from the chart) 13:29 13:14 Abdomen ordered. EDMS EDMS
--- NOTE | 2022-06-10 17:26 | ER ---
Nurse's Notes [facility] Name: Joyce Renee Age: 71 yrs Sex: Female : 1950 Arrival Date: 06/10/2022 Time: 12:33 Bed 2 Private MD: Tosin Melchor Diagnosis: Acute Diverticulitis Presentation: 06/10 12:47 Chief complaint: Patient states: LLQ pain and low grade fever up to 99.8*F that began 3 aa5 days ago. Denies nausea/vomiting/diarrhea. Reports constipation. Coronavirus screen: At this time, the client does not indicate any symptoms associated with coronavirus-19. Ebola Screen: Patient denies travel to an Ebola-affected area in the 21 days before illness onset. Initial Sepsis Screen: Does the patient meet any 2 criteria? No. Patient's initial sepsis screen is negative. Does the patient have a suspected source of infection? No. Patient's initial sepsis screen is negative. Risk Assessment: Do you want to hurt yourself or someone else? Patient reports no desire to harm self or others. Onset of symptoms was May 2022. 12:47 Method Of Arrival: Ambulatory aa5 12:47 Acuity: GUCCI 3 aa5 Historical: - Allergies: 12:48 Iodine; aa5 - PMHx: 12:48 Atrial Fib; CML; chemotherapy; Hypertension; Kidney stone; Hypothyroidism; aa5 Diverticulosis; - Immunization history:: Adult Immunizations unknown. - Social history:: Smoking status: Patient denies any tobacco usage or history of. Screenin:37 Abuse screen: Denies threats or abuse. Nutritional screening: No deficits noted. jd3 Tuberculosis screening: No symptoms or risk factors identified. Fall Risk IV access (20 points). Ambulatory Aid- None/Bed Rest/Nurse Assist (0 pts). Gait- Normal/Bed Rest/Wheelchair (0 pts) Mental Status- Oriented to own ability (0 pts). Total Jules Fall Scale indicates No Risk (0-24 pts). Assessment: 13:36 General: Appears in no apparent distress. comfortable, Behavior is calm, cooperative, jd3 appropriate for age. Pain: Complains of pain in left lower quadrant Quality of pain is described as sharp, tender. Neuro: Mckeon Agitation-Sedation Scale (RASS): 0 - Alert and Calm Level of Consciousness is awake, alert, obeys commands, Oriented to person, place, time, situation. Cardiovascular: Denies chest pain, Capillary refill < 3 seconds Patient's skin is warm and dry. Respiratory: Airway is patent Respiratory effort is even, unlabored, Respiratory pattern is regular, symmetrical, Denies cough, shortness of breath. GI: Abdomen is non-distended, Abd is soft X 4 quads Abdomen is tender to palpation in left lower quadrant Reports lower abdominal pain, constipation, nausea. : No signs and/or symptoms were reported regarding the genitourinary system. EENT: No signs and/or symptoms were reported regarding the EENT system. Derm: Skin is intact, Skin is dry, Skin is normal, Skin temperature is warm. Musculoskeletal: Circulation, motion, and sensation intact. Range of motion: intact in all extremities. 14:02 Reassessment: Patient appears in no apparent distress at this time. Patient and/or jd3 family updated on plan of care and expected duration. Pain level reassessed. Patient is alert, oriented x 3, equal unlabored respirations, skin warm/dry/pink. reporting continued pain, provider notified. 15:19 Reassessment: Patient appears in no apparent distress at this time. Patient and/or jd3 family updated on plan of care and expected duration. Pain level reassessed. Patient is alert, oriented x 3, equal unlabored respirations, skin warm/dry/pink. awaiting CT. 16:15 Reassessment: Patient appears in no apparent distress at this time. Patient and/or jd3 family updated on plan of care and expected duration. Pain level reassessed. Patient is alert, oriented x 3, equal unlabored respirations, skin warm/dry/pink. Patient states feeling better. 17:05 Reassessment: Patient appears in no apparent distress at this time. No changes from jd3 previously documented assessment. Patient and/or family updated on plan of care and expected duration. Pain level reassessed. Patient is alert, oriented x 3, equal unlabored respirations, skin warm/dry/pink. 18:00 Reassessment: Patient appears in no apparent distress at this time. No changes from jd3 previously documented assessment. Patient and/or family updated on plan of care and expected duration. Pain level reassessed. Patient is alert, oriented x 3, equal unlabored respirations, skin warm/dry/pink. Vital Signs: 12:47 BP 144 / 73; Pulse 89; Resp 16 S; Temp 97.7(TE); Pulse Ox 99% on R/A; Weight 61.69 kg aa5 (R); Height 5 ft. 1 in. (154.94 cm) (R); 18:00 BP 140 / 85; Pulse 87; Resp 16; Pulse Ox 99% on R/A; jd3 12:47 Body Mass Index 25.70 (61.69 kg, 154.94 cm) aa ED Course: 12:33 Patient arrived in ED. as 12:33 Tosin Melchor MD is Private Physician. as 12:43 [facility] 12:43 Trent Stone DO is Attending Physician. m 12:47 Arm band placed on. aa5 12:48 Triage completed. aa5 13:17 Supa Garcias, DYLAN is Primary Nurse. jd3 13:35 Inserted saline lock: 20 gauge in left antecubital area, using aseptic technique. Blood jd3 collected. 13:37 Patient has correct armband on for positive identification. Bed in low position. Call jd3 light in reach. Side rails up X 1. Adult w/ patient. Pulse ox on. NIBP on. 13:38 Warm blanket given. jd3 15:35 Abdomen In Process Unspecified. EDMS 17:25 Cesar Rojas MD is Referral Physician. m 18:00 No provider procedures requiring assistance completed. IV discontinued, intact, jd3 bleeding controlled, No redness/swelling at site. Pressure dressing applied. Administered Medications: 14:13 Drug: morphine 2 mg Route: IVP; Infused Over: 4 mins; Site: left antecubital; jd3 15:00 Follow up: Response: No adverse reaction; RASS: Alert and Calm (0) jd3 14:13 Drug: Zofran (Ondansetron) 4 mg Route: IVP; Site: left antecubital; jd3 15:00 Follow up: Response: No adverse reaction jd3 18:07 Drug: LevaQUIN (levofloxacin) 750 mg Route: PO; jd3 18:18 Follow up: Response: Medication administered at discharge. jd3 18:07 Drug: metroNIDAZOLE 500 mg Route: PO; jd3 18:18 Follow up: Response: Medication administered at discharge. jd3 Medication: 13:37 VIS not applicable for this client. jd3 Outcome: 17:26 Discharge ordered by . joyce 18:17 Patient left the ED. jd3 18:20 Discharged to home ambulatory, with family. jd3 18:20 Condition: stable 18:20 Discharge instructions given to patient, family, Instructed on discharge instructions, follow up and referral plans. medication usage, Demonstrated understanding of instructions, follow-up care, medications, Prescriptions given X 3. Signatures: Dispatcher [employer] EDMS Ron Franco PA PA jmm Martinez, Amelia as Calderon, Audri, RN RN aa5 Supa Garcias RN RN jd3 Corrections: (The following items were deleted from the chart) 14:03 14:02 Reassessment: Patient appears in no apparent distress at this time. Patient jd3 and/or family updated on plan of care and expected duration. Pain level reassessed. Patient is alert, oriented x 3, equal unlabored respirations, skin warm/dry/pink. reporting continued pain jd3
[2022-06-10] MEDS ORDERED: levoFLOXacin 750 MG TAB ONE (17:49)
[2022-06-10] MEDS ORDERED: metroNIDAZOLE 500 MG TABLET ONE (17:50)
[2022-06-10 18:36] VITALS: BP 144/73; TEMP 97.7; O2SAT 99
== END 2022-06-10 18:17 | disposition home or self-care (01) ==
LOC: ER 12:32
DX: K57.92 Diverticulitis of intestine, part unspecified, without perforation or abscess without bleeding (principal); Z91.048 Other nonmedicinal substance allergy status
CPT/HCPCS: 85025; 36415; 81003; 83690; 80053; 74176; J2270; J2405; 96374; 96375; 99284

== ENCOUNTER 2022-06-13 12:20 | Observation (INO) | payer OTHER ==
--- OUTSIDE RECORDS SUMMARY | 2022-06-13 12:25 | XMS REPORT | Continuity of Care Document ---
:1950 Author Organization [facility] t Address [address] [place] [address] Care Team Providers Name Role Phone [phone] Primary Care Physician Unavailable Tosin Melchor Attending [...] Unknown, Attending Attending Clinician Unavailable Doctor Unassigned, [place] Attending Clinician Unavailable BRITTNI GUTIERREZ Admitting Clinician Unavailable Payers Payer Name Policy Type Policy Number Effective Date Expiration Date S sc[facility]ionne [facility] [id number] 2021 (MEDICARE 00:00:00 REPLACEMENT HMO) [employer] [id number] 2018spring 00:00:00 Formerly [facility], [facility] Health C1 [id number] [facility] Health [id number] [facility] Health C1 [id number] [facility] [place] [id number] Common [facility] Problems Condition Condition Condition Status Onset Resolution Last Treating Co mments Source Name Details Category Date Date Treatment Clinician Date UTI UTI Disease Active Univers (urinary (urinary 2-28 ity of tract tract 00:00: [place] infection) infection) 00 Me dical Branch 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 on fibrillati St (disorder) on [facility] Hypothyroi Hypothyroi Problem C ommon dism dism, [facility] adult [facility] Essential Benign Problem Common hypertensi essential Spi rit on HTN [facility] Osteopenia Osteopenia Problem C ommon [facility] Anxiety Anxiety Problem Common [facility] Irritable Irritable Problem Com mon bowel bowel Spirit syndrome syndrome - 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, myelocytic - C HI disease leukemia) [facility] Diverticul Diverticul Problem C ommon osis of osis of [facility] colon colon [facility] [id number] Sciatica Problem Commo n of left Spirit side [facility] [id number] Impacted Problem Com mon [id number] cerumen, [facility] left ear [facility] [id number] Depression Problem Co mmon with [facility] anxiety [facility] [id number] Well adult Problem Co mmon exam [facility] Hip joint Hip joint Problem Com mon pain pain [facility] [id number] Seasonal Problem Comm on allergic Spirit rhinitis, - [facility] unspecifie [facility] Gastroesop +5th digit Problem C ommon hageal eff Spirit reflux 05/10/20*[place] - [facility]I disease stroesopha St with geal [facility] esophagiti reflux Medica l s disease Center with esophagiti s Renal Renal Problem Common insufficie insufficie Sp tom ncy ncy [facility] [id number] Paresthesi Problem Com mon a of skin [facility] Allergies, Adverse Reactions, Alerts Allergy Allergy Status [...] Active Unknown Common allergy [facility] - [facility] Social History Social Habit Start Date Stop Date Quantity Comments Source History of Tobacco [facility] Use [facility] Sex Assigned At Common Sp tom - [facility] Exposure to 2022-01-18 2022-01-28 Not sure [facility] SARS-CoV-2 (event) 00:00:00 14:44:00 [facility] Alcohol intake 2022-01-28 2022-01-28 .14 /d [facility] 00:00:00 00:00:00 [facility] Tobacco use and 2016-10-07 2016-10-07 Never used [facility] exposure 00:00:00 00:00:00 [facility] Smoking Status Start Date Stop Date Source Never Smoker [facility] Medications Ordered Filled Start Stop Current Ordering Indication Dosage Frequency Signature Comments Components Source Medication Medication Date Date Medication? Clinician (SIG) Name Name Zofran 4 MG Zofran 4 MG 2021-08 No BID Zofran 4 0-14 MG 00:00: 00 amoxicillin 2021- No [id number] 1{tbl} Take 1 Univers -clavulanat 6-20 02-04 tablet by it y of e 875-125 00:00: 04:59 mouth [place] mg per 00 :00 every 12 Medical tablet (twelve) Branch hours for 7 days. amoxicillin 2021- No [id number] 1{tbl} Take 1 Univers -clavulanat 6-20 02-04 tablet by it y of e 875-125 00:00: 04:59 mouth [place] mg per 00 :00 every 12 Medical tablet (twelve) Branch hours for 7 days. dronedarone 2021-0 Yes 200mg Take 200 U nivers 400 mg 6-01 mg by ity of tablet 16:21: mouth 2 [place] [address] ([facility] Medical times [place] daily with meals. aspirin 81 0 Yes 81mg Take 81 mg U nivers mg chewable 6-01 by mouth ity of tablet 16:21: daily. [address] atenolol 25 Yes 25mg Take 25 mg Univers mg tablet 6-01 by mouth ity of 16:21: daily. [place] [address] Medical Branch thyroid 0 Yes 60mg Take 60 mg Univ ers (ARMOUR 6-01 by mouth ity of THYROID) 60 16:21: every [place] mg tablet 25 morning. Medica l Branch imatinib 0 Yes 400mg Take 400 Univ ers 100 mg 6-01 mg by ity of tablet 16:21: mouth [place] 25 daily Medical Branch dronedarone 0 Yes 200mg Take 200 U nivers 400 mg 6-01 mg by ity of tablet 11:21: mouth 2 [place] [address] ([facility] times [place] daily with meals. aspirin 81 0 Yes 81mg Take 81 mg U nivers mg chewable 6-01 by mouth ity of tablet 11:21: daily. [address] atenolol 25 Yes 25mg Take 25 mg Univers mg tablet 6-01 by mouth ity of 11:21: daily. [address] thyroid 0 Yes 60mg Take 60 mg [...] by ity of tablet 11:21: mouth 2 [place] [address] ([facility]) Medical times [place] daily with meals. aspirin 81 0 Yes 81mg Take 81 mg U nivers mg chewable 6-01 by mouth ity of tablet 11:21: daily. [address] atenolol 25 0 Yes 25mg Take 25 mg Univers mg tablet 6-01 by mouth ity of 11:21: daily. [address] thyroid 2021-0 Yes 60mg Take 60 mg Univ ers [...] by ity of tablet 11:21: mouth 2 [place] 25 (two) Medical times Branch daily with meals. aspirin 81 Yes 81mg Take 81 mg U nivers mg chewable 01-08 by mouth ity of tablet 11:21: daily. [address] Branch atenolol 25 Yes 25mg Take 25 mg Univers mg tablet - by mouth ity of 11:21: daily. [address] Branch thyroid Yes 60mg Take 60 mg Univ ers (ARMOUR 6-01 by mouth ity of THYROID) 60 11:21: every [place] mg tablet 25 morning. Medica l Branch imatinib Yes 400mg Take 400 Univ ers 100 mg 6-01 mg by ity of tablet 11:21: mouth [place] 25 daily Medical Branch cephALEXin 2020- No [id number] 500mg Take 1 Univers (KEFLEX) 01-08 06-09 capsule by ity of 500 mg 00:00: 04:59 mouth 3 [place] capsule 00 :00 (three) Medical times Branch daily for 7 days. EpiPen EpiPen 2019-0 Yes Na Melchor as Common 2-Chung 2-Chung 03-09 directed Spirit 00:00: - CHI 00 [facility] EpiPen EpiPen 2019-0 No EpiPen 2-Chung 0.3 2-Chung 0.3 - 2-Chung 0.3 MG/0.3ML MG/0.3ML 00:00: MG/0.3ML 00 EpiPen EpiPen 2019-0 No EpiPen 2-Chung 0.3 2-Chung 0.3 7-31 2-Chung 0.3 MG/0.3ML MG/0.3ML 00:00: MG/0.3ML 00 EpiPen EpiPen 2019-0 No 2-Chung 0.3 2-Chung 0.3 7-31 MG/0.3ML MG/0.3ML 00:00: 00 EpiPen EpiPen 2020-0 No 2-Chung 0.3 2-Chung 0.3 7-31 MG/0.3ML MG/0.3ML 00:00: 00 EpiPen EpiPen 2020-0 No EpiPen 2-Chung 0.3 2-Chung 0.3 7-31 2-Chung 0.3 MG/0.3ML MG/0.3ML 00:00: MG/0.3ML 00 dicyclomine 2018-08 Yes [id number] 20mg Take 1 Univers (BENTYL) 20 2-16 tablet by ity of mg tablet 00:00: mouth [place] 00 every 6 Medical (six) Branch hours as needed for Abdominal pain. proMETHazin 2018-08 Yes [id number] 25mg Take 1 U nivers e 25 mg 2-16 tablet by ity of tablet 00:00: mouth [place] 00 every 6 Medical (six) Branch hours as needed for Nausea and Vomiting (N/V). cephALEXin 2018-08 Yes [id number] 250mg Take 1 Univers (KEFLEX) 2-16 capsule by ity o f 250 mg 00:00: mouth [place] capsule 00 every 6 Medical (six) Branch hours. dicyclomine 2018-08 Yes [id number] 20mg Take 1 Univers (BENTYL) 20 2-16 tablet by ity of mg tablet 00:00: mouth [place] 00 every 6 Medical (six) Branch hours as needed for Abdominal pain. proMETHazin 2018-08 Yes [id number] 25mg Take 1 U nivers e 25 mg 2-16 tablet by ity of tablet 00:00: mouth [place] 00 every 6 Medical (six) Branch hours as needed for Nausea and Vomiting (N/V). dicyclomine 2018-08 Yes [id number] 20mg Take 1 Univers (BENTYL) 20 2-16 tablet by ity of mg tablet 00:00: mouth [place] 00 every 6 Medical (six) Branch hours as needed for Abdominal pain. proMETHazin 2018-08 Yes [id number] 25mg Take 1 U nivers e 25 mg 2-16 tablet by ity of tablet 00:00: mouth [place] 00 every 6 Medical (six) Branch hours as needed for Nausea and Vomiting (N/V). dicyclomine 2018-08 Yes [id number] 20mg Take 1 Univers (BENTYL) 20 2-16 tablet by ity of mg tablet 00:00: mouth [place] 00 every 6 Medical (six) Branch hours as needed for Abdominal pain. proMETHazin 2018-08 Yes [id number] 25mg Take 1 U nivers e 25 mg 2-16 tablet by ity of tablet 00:00: mouth [place] 00 every 6 Medical (six) Branch hours as needed for Nausea and Vomiting (N/V). dicyclomine 2018-08 Yes [id number] 20mg Take 1 Univers (BENTYL) 20 2-16 tablet by ity of mg tablet 00:00: mouth [place] 00 every 6 Medical (six) Branch hours as needed for Abdominal pain. proMETHazin 2018-08 Yes [id number] 25mg Take 1 U nivers e 25 mg 2-16 tablet by ity of tablet 00:00: mouth [place] 00 every 6 Medical (six) Branch hours as needed for Nausea and Vomiting (N/V). cephALEXin 2018-08- No [id number] 250mg Take 1 Univers (KEFLEX) 2-16 06- capsule by ity of 250 mg 00:00: 00:00 mouth [place] capsule 00 :00 every 6 Medical (six) Branch hours. dronedarone Yes 200mg Take 200 U nivers 400 mg 4-17 mg by ity of tablet 16:50: mouth 2 [place] 17 (two) Medical times Branch daily with meals. atenolol 25 Yes 25mg Take 25 mg Univers mg tablet 4-17 by mouth ity of 16:50: daily. [place] 17 Medical Branch imatinib Yes 600mg Take 600 Univ ers 100 mg 4-17 mg by ity of tablet 16:50: mouth [place] 17 daily. Medical Branch aspirin 81 Yes 81mg Take 81 mg U nivers mg chewable 3-23 by mouth ity of tablet 22:16: daily. [place] 18 Medical Branch thyroid 2017 Yes 60mg [...] 00 every 4 Medical (four) Branch hours. [place] Yes Na Melchor 1 tablet Comm on Thyroid Thyroid on an Spirit empty - CHI stomach [facility] Vitamin D3 Vitamin D3 Yes Na Melchor not Common Complete Complete defined Spir it [facility] Pantoprazol Pantoprazol Yes Na Melchor 1 tablet Common e Sodium e Sodium [facility] Gleevec Gleevec Yes Na Melchor 1 tablet Co mmon with a Spirit meal and a - CHI large St glass [facility] Multaq Multaq Yes Na Melchor TAKE Common ONE-HALF Spirit TABLET BY - CHI MOUTH [facility] Clindamycin Clindamycin Yes Na Melchor 1 capsules Common HCl HCl [facility] Multaq Multaq Yes Na Melchor 1/2 tablet Co mmon with meals [facility] Macrobid Macrobid Yes Na Melchor 1 capsule Common with food [facility] Macrobid Macrobid No 1{capsu BID Macrobid 100 MG 100 MG le_with 100 MG _food} Aspir-Low Aspir-Low No 1{table QD Aspir-Low 81 MG 81 MG t} 81 MG [place] No 1{table QD [place] Thyroid 60 Thyroid 60 t_on_an Thyroid 60 [...] 81 MG 81 MG t} 81 MG [place] No 1{table QD [place] Thyroid 60 Thyroid 60 t_on_an Thyroid 60 [...] HCl 300 MG HCl 300 MG les} [facility] No 1{table QD Thyroid 60 [...] HCl 300 MG HCl 300 MG les} [facility] No 1{table QD Thyroid 60 Thyroid 60 t_on_an MG MG _empty_ stomach } Pantoprazol Pantoprazol No 1{table QD e Sodium 40 e Sodium 40 t} MG MG Vitamin D3 Vitamin D3 No Complete - Complete - Gleevec 400 Gleevec 400 No 1{table QD MG MG t_with_ a_meal_ and_a_l arge_gl ass_of_ water} [facility] No 1{table QD [place] Thyroid 60 Thyroid 60 t_on_an Thyroid 60 [...] 300 MG les} n HCl 300 MG [place] No 1{table QD [place] Thyroid 60 Thyroid 60 t_on_an Thyroid 60 [...] t} le Sodium MG MG 40 MG [place] No 1{table QD [place] Thyroid 60 Thyroid 60 t_on_an Thyroid 60 [...] MG Jose Enrique Quispe No 1{table QD [place] Thyroid 60 Thyroid 60 t_on_an Thyroid 60 [...] MG Jose Enrique Qu[place] No 1{table QD [place] Thyroid 60 Thyroid 60 t_on_an Thyroid 60 [...] 0.3 0.3 e 0.3 MG/0.3ML MG/0.3ML MG/0.3ML [place] No 1{table QD [place] Thyroid 60 Thyroid 60 t_on_an Thyroid 60 [...] 0.3 0.3 e 0.3 MG/0.3ML MG/0.3ML MG/0.3ML [place] No 1{table QD [place] Thyroid 60 Thyroid 60 t_on_an Thyroid 60 [...] 0.3 0.3 e 0.3 MG/0.3ML MG/0.3ML MG/0.3ML [place] No 1{table QD [place] Thyroid 60 Thyroid 60 t_on_an Thyroid 60 MG MG _empty_ MG stomach } Macrobid Macrobid No 1{capsu BID Macrobid 100 MG 100 MG le_with 100 MG _food} Vitamin D3 Vitamin D3 No Vitamin D3 Complete - Complete - Complete - [place] No 1{table QD [place] Thyroid 60 Thyroid 60 t_on_an Thyroid 60 [...] 0.3 0.3 e 0.3 MG/0.3ML MG/0.3ML MG/0.3ML [place] No 1{table QD [place] Thyroid 60 Thyroid 60 t_on_an Thyroid 60 MG MG _empty_ MG stomach } Macrobid Macrobid No 1{capsu BID Macrobid 100 MG 100 MG le_with 100 MG _food} Vital Signs Vital Name Observation Time Observation Value Comments Source Systolic blood 2022-01-28 19:57:00 118 mm[Hg] Univer sity of pressure [place] [facility] [place] Diastolic blood 2022-01-28 19:57:00 74 mm[Hg] Unive rsity of [facility] Heart rate 2022-01-28 19:57:00 80 /min Universi ty of [place] [facility] [place] Body temperature 2022-01-28 19:57:00 37.44 Odalys Univ ersity of [facility] Respiratory rate 2022-01-28 19:57:00 16 /min Univ ersity of [facility] Body height 2022-01-28 19:57:00 152.4 cm Universi ty of [place] [facility] [place] Body weight 2022-01-28 19:57:00 62.143 kg Universi ty of [place] [facility] [place] BMI 2022-01-28 19:57:00 26.76 kg/m2 Universi ty of [place] [facility] [place] Oxygen saturation in 2022-01-28 19:57:00 98 /min University of Arterial blood by [facility] [place] [facility] Pulse oximetry Branch Systolic blood 2022-01-27 21:02:31 118 mm[Hg] Univer sity of [facility] Diastolic blood 2022-01-27 21:02:31 65 mm[Hg] Unive rsity of [facility] Medical [place] Heart rate 2022-01-27 21:02:31 75 /min Universi ty of [place] [facility] Respiratory rate 2022-01-27 21:02:31 18 /min Univ ersity of [place] [facility] [place] Oxygen saturation in 2022-01-27 21:02:31 97 /min University of Arterial blood by [facility] [place] [facility] Pulse oximetry Branch Body temperature 2022-01-27 19:00:00 37.17 Odalys Univ ersity of [place] [facility] Body weight 2022-01-27 19:00:00 61.689 kg Universi ty of [place] [facility] BMI 2022-01-27 19:00:00 25.70 kg/m2 Universi ty of [place] [facility] height 2021-12-31 13:00:00 60.00 [in_i] [facility] weight 2021-12-31 13:00:00 138.6 [lb_av] Common [facility] temperature 2021-12-31 13:00:00 97.5 [degF] Common S pirit [facility] bmi 2021-12-31 13:00:00 27.07 kg/m2 Common S [facility] oximetry 2021-12-31 13:00:00 98 % Common S [facility] respiratory rate 2021-12-31 13:00:00 15 /min Comm on Spirit - [facility] blood pressure 2021-12-31 13:00:00 123 mm[Hg] Common [facility] - systolic [facility] blood pressure 2021-12-31 13:00:00 58 mm[Hg] Common [facility] - diastolic [facility] height 2021-06-18 11:40:00 60.00 [in_i] Common [facility] weight 2021-06-18 11:40:00 134 [lb_av] Common S pirit [facility] temperature 2021-06-18 11:40:00 96.5 [degF] Common [facility] bmi 2021-06-18 11:40:00 26.17 kg/m2 Common S [facility] oximetry 2021-06-18 11:40:00 96 % Common S pirit [facility] blood pressure 2021-06-18 11:40:00 115 mm[Hg] Common [facility] - systolic [facility] blood pressure 2021-06-18 11:40:00 85 mm[Hg] Common [facility] - diastolic [facility] height 2021-06-18 10:00:00 60.00 [in_i] Common S pirit [facility] weight 2021-06-18 10:00:00 134 [lb_av] Common [facility] temperature 2021-06-18 10:00:00 96.5 [degF] [facility] bmi 2021-06-18 10:00:00 26.17 kg/m2 Common S pirit - [facility] oximetry 2021-06-18 10:00:00 96 % Common S pirit - [facility] respiratory rate 2021-06-18 10:00:00 17 /min Comm on Spirit - [facility] blood pressure 2021-06-18 10:00:00 115 mm[Hg] Common [facility] - systolic [facility] blood pressure 2021-06-18 10:00:00 58 mm[Hg] Common [facility] - diastolic [facility] Systolic blood 2021-01-08 16:22:00 143 mm[Hg] Univer sity [facility] Diastolic blood 2021-01-08 16:22:00 78 mm[Hg] [facility] rate 2021-01-08 16:21:00 85 /min [facility] Body temperature 2021-01-08 16:21:00 37.22 Odalys [facility] Respiratory rate 2021-01-08 16:21:00 18 /min [facility] Body height 2021-01-08 16:21:00 154.9 cm [facility] Body weight 2021-01-08 16:21:00 61.689 kg [facility] BMI 2021-01-08 16:21:00 25.70 kg/m2 [facility] Oxygen saturation in 2021-01-08 16:21:00 98 /min [facility] Arterial blood by [facility] [place] [facility] Pulse oximetry Branch Procedures Procedure Date / Time Performed Performing Clinician Goldie e CT ABDOMEN PELVIS WO 2022-01-27 19:43:48 Brittni Gutierrez [facility] Branch LIPASE 2022-01-27 19:33:00 Brittni Gutierrez [facility] TROPONIN I 2022-01-27 19:33:00 Brittni Gutierrez [facility] COMP. METABOLIC PANEL 2022-01-27 19:33:00 Brittni Gutierrez [facility] ([id number]) [facility] CBC WITH DIFF 2022-01-27 19:33:00 Brittni Gutierrez [facility] URINALYSIS 2022-01-27 19:33:00 Brittni Gutierrez [facility] CONSENT/REFUSAL FOR 2022-01-27 18:58:06 Doctor Unassigned, [facility] AND Name Medical Branch TREATMENT NOTICE OF PRIVACY 2022-01-27 18:57:42 Doctor Unassigned, No Univ [facility] Name Medical Branch ASSIGNMENT OF BENEFITS 2021-01-08 15:49:35 Doctor Unassigned, No [facility] Medical Branch POCT URINALYSIS 2021-01-08 00:00:00 Jeaneth Jolley Bois D Arc o f [facility] Encounters Start End Encounter Admission Attending Care Care Encounter Source Date/Time Date/Time Type Type Clinicians Facility Department ID 2022-04-17 Outpatient Melchor, Na STLMLC STLMLC [id number] 2 Common 14:37:00 [id number] [facility] 2022-02-18 Outpatient Melchor, Na STLMLC STLMLC [id number] 2 Common 14:20:00 [id number] [facility] 2021 Outpatient Melchor, Na STLMLC STLMLC [id number] 2 Common 14:10:00 [id number] [facility] 2021 Outpatient Melchor, Na STLMLC STLMLC [id number] 2 Common 13:58:14 [id number] [facility] 2021 Outpatient Melchor, Na STLMLC STLMLC [id number] 2 Common 13:38:40 [id number] [facility] 2021 Outpatient Melchor, Na STLMLC STLMLC [id number] 2 Common 13:35:38 [id number] [facility] 2021 Outpatient Melchor, Na STLMLC STLMLC [id number] 2 Common 12:40:44 [id number] [facility] 2021 Outpatient Melchor, Na STLMLC STLMLC [id number] 2 Common 12:38:07 [id number] [facility] 2021 Outpatient Melchor, Na STLMLC STLMLC [id number] 2 Common 12:37:19 [id number] [facility] 2021 Outpatient Melchor, Na STLMLC STLMLC [id number] 2 Common 12:36:41 [id number] [facility] 2021 Outpatient Melchor, Na STLMLC STLMLC [id number] 2 Common 12:31:16 [id number] [facility] 2021 Outpatient Melchor, Na STLMLC STLMLC [id number] 2 Common 12:22:41 [id number] [facility] 2021 Outpatient Melchor, Na STLMLC STLMLC [id number] 2 Common 12:20:37 [id number] [facility] 2021 Outpatient Melchor, Na STLMLC STLMLC [id number] 2 Common 11:31:52 [id number] [facility] 2021 Outpatient Melchor, Na STLMLC STLMLC [id number] 2 Common 11:18:56 [id number] [facility] 2021 Outpatient Melchor, Na STLMLC STLMLC [id number] 2 Common 11:00:35 [id number] [facility] 2022-05-23 2022-05-23 (TEL) STLMLC STLMLC [id number] Co mmon 00:00:00 00:00:00 [facility] 2022-05-16 2022-05-16 (TEL) STLMLC STLMLC [id number] Co mmon 00:00:00 00:00:00 [facility] 2022-04-21 2022-04-21 (TEL) STLMLC STLMLC [id number] Co mmon 00:00:00 00:00:00 [facility] 2022-04-21 2022-04-21 OL DIG E/M STLMLC STLMLC [id number] Common 00:00:00 00:00:00 [facility] 11-20 Spir it [facility] 2022-04-10 2022-04-10 (TEL) STLMLC STLMLC [id number] Co mmon 00:00:00 00:00:00 Spirit - [facility] 2022-02-21 2022-02-21 [place] [id number] Devoted 07:08:00 07:08:00 0715 Medica l Group 2022-01-28 2022-01-28 Nurse Nurse, [facility] [id number] Univers 14:45:00 15:05:00 Visit Prema Mcnally [facility] [id number] itFlash [id number] Rubio as MOHIT?BLEA [id number] [address] MEDICAL OFFICE BUILDING 2022-01-28 2022-01-28 Outpatient R LEVAR [facility] [id number] Univers 14:45:00 14:45:00 PREMA malik o f [facility] 2022-01-27 2022-01-27 Emergency [facility] [id number] Univers 14:02:00 16:20:00 BRITTNI malik [facility] [place] [facility] 2022-01-27 2022-01-27 Emergency [facility] [id number] Univers 14:02:00 16:20:00 Brittni CHILEL [id number] Dani [id number] [facility] [id number] [address] 2022-01-16 2022-01-16 (TEL) STLMLC STLC [id number] Co mmon 00:00:00 00:00:00 Spirit - [facility] 2021-12-31 2021-12-31 OFFICE STLMLC STLC [id number] Co mmon 00:00:00 00:00:00 VISIT Spirit ESTAB PT - CHI LEVEL 4 [facility] 2021-12-09 2021-12-09 (TEL) STLMLC STLMLC [id number] Co mmon 00:00:00 00:00:00 Spirit - [facility] 2021-11-08 2021-11-08 (TEL) STLMLC STLMLC [id number] Co mmon 00:00:00 00:00:00 Spirit - [facility] 2021-08-16 2021-08-16 Laboratory Only, Ang Db Test [facility] 1.2.8 [id number] Univers 13:30:00 13:45:00 Only Verónica Reyes [facility] [id number] itFlash [id number] Rubio as MOHIT?BLEA [id number] Sc dical [address] MEDICAL OFFICE BUILDING 2021-08-16 2021-08-16 Outpatient R ERIC [facility] [id number] Univers 13:30:00 13:30:00 VERÓNICA ity o f [facility] 2021-08-16 2021-08-16 [id number] Univers 13:00:00 13:00:00 JENNIFER malik [facility] [place] [facility] 2021-06-19 2021-06-19 Outpatient DMG [facility] [id number] Devoted 08:00:00 08:00:00 1110 Medica l Group 2021-06-18 2021-06-18 OFFICE STLMLC STLC [id number] Co mmon 00:00:00 00:00:00 VISIT EST Spir it PT LEVEL 3 - CHI [facility] 2021-06-18 2021-06-18 SUB ANNUAL STLMLC STLMLC [id number] Common 00:00:00 00:00:00 MCR [facility] VISIT [facility] 2021-06-06 2021-06-06 (TEL) STLMLC STLMLC [id number] Co mmon 00:00:00 00:00:00 Spirit - [facility] 2021-05-13 2021-05-13 (TEL) STLMLC STLMLC [id number] Co mmon 00:00:00 00:00:00 [facility] 2021-05-03 2021-05-03 [place] [id number] Devoted 08:00:00 08:00:00 0924 Medica l Group 2021-03-29 2021-03-29 Outpatient STLMLC STLMLC [id number] Common 00:00:00 00:00:00 [facility] 2021-03-25 2021-03-25 Outpatient STLMLC STLMLC [id number] Common 00:00:00 00:00:00 [facility] 2021-03-18 2021-03-18 Outpatient STLMLC STLMLC [id number] Common 00:00:00 00:00:00 [facility] 2021-01-21 2021-01-21 Outpatient STLMLC STLMLC [id number] Common 00:00:00 00:00:00 [facility] 2021-01-21 2021-01-21 Outpatient STLMLC STLMLC [id number] Common 00:00:00 00:00:00 [facility] 2021-01-18 2021-01-18 Outpatient STLMLC STLMLC [id number] Common 00:00:00 00:00:00 [facility] 2021-01-08 2021-01-08 Outpatient Michelle [facility] [id number] Univers 11:00:00 12:06:23 AMIE ity of [facility] 2021-01-08 2021-01-08 Urgent Provider, [facility] [id number] Univers 10:52:20 12:06:23 Care Unknown, Attending Health [id number] ity of [place] [id number] Rubio as Professio [phone] [address] Office [address] 2021-01-08 2021-01-08 Orders Doctor GOYO [id number] Univers 00:00:00 00:00:00 Only Unassigned, CORBIN [id number] ity of [place] [facility] [id number] Rubio as [phone] [address] 2020-12-18 2020-12-18 Outpatient STLMLC STLMLC [id number] Common 00:00:00 00:00:00 [facility] 2020-11-08 2020-11-08 Outpatient STLMLC STLMLC [id number] Common 00:00:00 00:00:00 [facility] 2020-10-24 2020-10-24 Outpatient STLMLC STLMLC [id number] Common 00:00:00 00:00:00 [facility] 2020-10-16 2020-10-16 Outpatient STLMLC STLMLC [id number] Common 00:00:00 00:00:00 [facility] 2020-06-25 2020-06-25 Outpatient STLMLC STLMLC [id number] Common 00:00:00 00:00:00 [facility] 2020-06-19 2020-06-19 Outpatient STLMLC STLMLC [id number] Common 00:00:00 00:00:00 [facility] 2020-06-05 2020-06-05 Outpatient STLMLC STLMLC [id number] Common 00:00:00 00:00:00 [facility] 2020-04-18 2020-04-18 [id number] Common 16:59:00 16:59:[address] [facility] 2020-04-18 2020-04-18 [facility] [id number] Common 16:59:00 16:59:[address] [facility] 2020-03-08 2020-03-08 [facility] [id number] Common 15:32:00 15:32:[address] [facility] 2019-12-26 2019-12-26 [facility] [id number] Common 10:20:00 10:20:[address] [facility] 2019-12-05 2019-12-05 [facility] [id number] Common 14:00:00 14:00:[address] [facility] 2019-11-03 2019-11-03 [facility] [id number] Common 09:28:00 09:28:[address] [facility] 2019-09-06 2019-09-06 [facility] [id number] Common 09:40:00 09:40:[address] [facility] 2019-08-29 2019-08-29 [facility] [id number] Common 16:20:00 16:20:[address] [facility] 2019-06-28 2019-06-28 [facility] [id number] Common 10:24:00 10:24:[address] [facility] 2019-06-15 2019-06-15 [facility] [id number] Common 15:27:00 15:27:[address] [facility] 2019-06-06 2019-06-06 [facility] [id number] Common 09:40:00 09:40:[address] [facility] 2019-03-18 2019-03-18 [facility] [id number] Common 16:01:00 16:01:[address] [facility] 2019-03-02 2019-03-02 [facility] [id number] Common 09:40:00 09:40:[address] [facility] 2019-02-18 2019-02-18 [facility] [id number] Common 15:26:00 15:26:[address] [facility] 2018-12-15 2018-12-15 [facility] [id number] Common 16:50:00 16:50:[address] [facility] 2018-11-25 2018-11-25 [facility] [id number] Common 11:00:00 11:00:[address] [facility] Results Test Description Test Time Test Comments Results Result Comments Source TROPONIN I 2022-01-27 20:25:01 Test Item Value Reference Range Interpretation Comme nts TROPONIN I (test code = 0.003 ng/mL See_Comment [Au tomated message] The [id number]) system which ge nerated this result tra [...] biotin. Lab Interpretation Normal (test code = 47696-5) [facility]. METABOLIC PANEL (89399)2022-01-27 20:13:39 Test Item Value Reference Range Interpretation Comments NA (test code = 139 mmol/L 135-145 9951183564) K (test code = 4.0 mmol/L 3.5-5.0 6504976297) CL (test code = 105 mmol/L 98-108 2248827509) CO2 TOTAL (test code = 27 mmol/L 23-31 6577853652) AGAP (test code = 2-16 4943032963) BUN (test code = 18 mg/dL 7-23 8693816660) GLUCOSE (test code = 100 mg/dL 70-110 4026193693) CREATININE (test code = 1.28 mg/dL 0.50-1.04 H 4740529090) TOTAL BILI (test code = 0.6 mg/dL 0.1-1.4 9491014120) CALCIUM (test code = 8.9 mg/dL 8.6-10.6 2504820953) T PROTEIN (test code = 7.4 g/dL 6.3-8.2 5259859591) ALBUMIN (test code = 4.3 g/dL 3.5-5.0 4175100625) ALK PHOS (test code = 62 U/L 34-122 5801091677) ALTv (test code = 16 U/L 5-35 1742-6) AST(SGOT) (test code = 27 U/L 13-40 7042167990) eGFR (test code = mL/min/1.73m2 1266737754) DAMON (test code = DAMON) Association of [...] tests). Lab Interpretation Abnormal (test code = 38602-0) [facility]19 Test Item Value Reference Range Interpretation Comments LIPASE (test code = 0771869126) 110 U/L 0-220 Lab Interpretation (test code = Normal 31354-8) [facility] [id number] 19:54:35 Test Item Value Reference Range Interpretation Comments WBC (test code = See_Comment [Automated 0190-2) message] The sy stem which generated this [...] RDW-SD (test code = 45.0 fL 39.0-49.9 29421-3) RDW-CV (test code = 13.0 % 12.0-15.5 788-0) PLT (test code = See_Comment [Automated 777-3) message] The sy stem which generated this result transmitted reference range : 166 - 358 10*3/ ?L. The reference r rafi was not used to interpret this result as normal/abnormal . MPV (test code = 10.3 fL 9.5-12.9 10149-8) NRBC/100 WBC (test See_Comment [Automat ed code = 9755716698) message] The system which generated this result transmitted reference range : 0.0 - 10.0 /100 WBCs. The refer ence range was not u sed to interpret th is result as normal/abnormal . NRBC x10^3 (test code <0.01 See_Comment [Auto mated = 6936011329) message] The s ystem which generated this result transmitted reference range : 10*3/?L. The reference range was not used to interpret this result as normal/abnormal . GRAN MAT (NEUT) % 69.7 % (test code = 770-8) IMM GRAN % (test code 0.40 % = 7886721442) LYMPH % (test code = 20.2 % 736-9) MONO % (test code = 8.3 % 5905-5) EOS % (test code = 1.2 % 713-8) BASO % (test code = 0.2 % 706-2) GRAN MAT x10^3(ANC) 6.35 10*3/uL 1.88-7.09 (test code = 5264851179) IMM GRAN x10^3 (test 0.04 10*3/uL 0.00-0.06 code = 7126875031) LYMPH x10^3 (test code 1.84 10*3/uL 1.32-3.29 = 731-0) MONO x10^3 (test code 0.76 10*3/uL 0.33-0.92 = 742-7) EOS x10^3 (test code = 0.11 10*3/uL 0.03-0.39 711-2) BASO x10^3 (test code <0.03 0.01-0.07 = 704-7) Lab Interpretation Abnormal (test code = 59676-0) [facility] W SPECIFIC [id number] 16:33:00 Test Item Value Reference Range Interpretation [...] U APPEAR (test code = clear 3267) [facility] 2 AntigenSARS-COV 2 AntigenSARS-COV 2 AntigenSARS-COV 2 Antigen"
[2022-06-13] MEDS ORDERED: NA CHLORIDE 0.9% 1,000 ML ONE (13:00)
--- NOTE | 2022-06-13 13:02 | RAD REPORT ---
EXAM DESCRIPTION: Tess Single View06/13/2022 12:55 pm CLINICAL HISTORY: Shortness of breath COMPARISON: 2019 FINDINGS: The lungs appear clear of acute infiltrate. The heart is borderline enlarged IMPRESSION: No acute abnormalities displayed
[2022-06-13 13:05] LABS: Absolute Lymphocytes (CBC) 1.3 K/uL (0.7-4.9); Lymphocytes % 14.4 % (15.3-44.8); MCV 92.2 fL (80-100); MPV 7.8 fL (7.6-11.3); RBC Red Blood Cell Count 3.58 M/uL (3.86-4.86)
--- NOTE | 2022-06-13 13:12 | RAD REPORT ---
EXAM DESCRIPTION: CT - Abdomen Pelvis Wo Contrast - 06/13/2022 12:59 pm CLINICAL HISTORY: Abdominal pain COMPARISON: May 16, 2022 TECHNIQUE: Computed axial tomography of the abdomen and pelvis was obtained. IV and oral contrast we re not requested. All CT scans are performed using dose optimization technique as appropriate and may include automated exposure control or mA/KV adjustment according to patient size. FINDINGS: The evaluation of solid organs, vessels and bowel is limited secondary to the lack of con trast administration. The liver, spleen, pancreas, adrenals and kidneys appear grossly normal. The appendix is normal. Diverticula stem from the colon. Moderate stranding adjacent to sigmoid has mildly worsened. No free air. No abscess Cholecystectomy. Small inguinal hernias IMPRESSION: Moderate sigmoid diverticulitis
[2022-06-13 13:22] LABS: Albumin 3.5 g/dL (3.4-5.0); Potassium 3.5 mmol/L (3.5-5.1)
[2022-06-13 13:27] LABS: Bilirubin Total 0.7 mg/dL (0.2-1.0); Protein, Total 7.8 g/dL (6.4-8.2)
--- NOTE | 2022-06-13 14:54 | EDPHYS ---
Physician Documentation [facility] Name: Joyce Renee Age: 71 yrs Sex: Female : 1950 Arrival Date: 06/13/2022 Time: 12:22 Bed 2 Private MD: Tosin Melchor ED Physician David Dickens HPI: 06/13 14:48 This 71 yrs old Female presents to ER via Ambulatory with complaints of rn Dizziness, Shortness Of Breath, abd pain. 14:48 The patient presents with dizziness, feeling faint, generalized weakness, rn lightheadedness. Onset: The symptoms/episode began/occurred today. Modifying factors: The symptoms are alleviated by nothing, the symptoms are aggravated by standing up, changing position. Severity of symptoms: At their worst the symptoms were moderate in the emergency department the symptoms have improved. The patient has not experienced similar symptoms in the past. The patient has been recently seen by a physician:. Pt reports recently diagnosed with diverticulitis, sent home with abx, returns because is seeing and hearing things, reports hallucinations, and sob. Reports abd pain about the same, but feels dizzy and weak all over. . Historical: - Allergies: 12:39 Iodine; ll1 - PMHx: 12:39 Atrial Fib; chemotherapy; CML; diverticulosis; Hypertension; Hypothyroidism; Kidney ll1 stone; - Immunization history:: Client reports having NOT received the Covid vaccine. - Social history:: Smoking status: Patient denies any tobacco usage or history of. - Family history:: not pertinent. - Hospitalizations: : No recent hospitalization is reported. ROS: 14:48 Constitutional: Negative for fever, chills, and weight loss, Eyes: Negative for injury, rn pain, redness, and discharge, Neck: Negative for injury, pain, and swelling, Cardiovascular: Negative for chest pain, palpitations, and edema, Respiratory: Negative for cough, wheezing, and pleuritic chest pain, Abdomen/GI: + left sided abd pain and nausea : Negative for injury, bleeding, discharge, and swelling, MS/Extremity: Negative for injury and deformity, Skin: Negative for injury, rash, and discoloration, Neuro: Negative for headache, numbness, tingling, and seizure. Exam: 14:48 Constitutional: This is a well developed, well nourished patient who is awake, alert, rn and in no acute distress. Head/Face: Normocephalic, atraumatic. Cardiovascular: Regular rate and rhythm. No pulse deficits. Respiratory: No increased work of breathing, no retractions or nasal flaring. Abdomen/GI: soft, + LLQ tenderness, no rebound Skin: Warm, dry MS/ Extremity: Pulses equal, no cyanosis. Neuro: Awake and alert, GCS 15 14:48 ECG was reviewed by the Attending Physician. rn Vital Signs: 12:40 BP 148 / 90; Pulse 99; Resp 17; Temp 97.9; Pulse Ox 100% ; Weight 59.87 kg; Height 5 ll1 ft. 0 in. (152.40 cm); Pain 0/10; 15:33 BP 125 / 66; Pulse 90; ll1 17:03 BP 141 / 68; Pulse 84; Resp 16; Pulse Ox 99% on R/A; ll1 17:47 BP 110 / 55; Pulse 85; Resp 16; Pulse Ox 99% on R/A; ll1 12:40 Body Mass Index 25.78 (59.87 kg, 152.40 cm) ll1 MDM: 12:34 Patient medically screened. rn 14:48 Differential diagnosis: generalized weakness, hypovolemia, idiopathic dizziness, rn vertigo, worsening diverticulitis. Data reviewed: vital signs, nurses notes, lab test result(s), EKG, radiologic studies, CT scan, and as a result, I will admit patient. 14:51 Counseling: I had a detailed discussion with the patient and/or guardian regarding: the rn historical points, exam findings, and any diagnostic results supporting the discharge/admit diagnosis, lab results, radiology results, the need for further work-up and treatment in the hospital. Response to treatment: the patient's symptoms have mildly improved after treatment, and as a result, I will admit patient. Admission orders: after a detailed discussion of the patient's condition and case, the admit orders are written by me. ED course: Will admit for worsening diverticulitis in setting of feeling worse and hallucinations. . 06/13 12:46 Order name: CBC with Diff; Complete Time: 13:26 rn 06/13 12:46 Order name: CMP; Complete Time: 13:50 rn 06/13 12:46 Order name: Lipase; Complete Time: 13:50 rn 06/13 12:46 Order name: Urine Microscopic Only rn 06/13 12:46 Order name: BNP; Complete Time: 13:50 rn 06/13 15:02 Order name: Urine Dipstick-Ancillary [facility] 06/13 12:46 Order name: CT Abd/Pelvis - Without Contrast; Complete Time: 13:26 rn 06/13 12:46 Order name: XRAY Chest (1 view); Complete Time: 13:26 rn 06/13 12:47 Order name: EKG; Complete Time: 12:48 1 06/13 15:27 Order name: Urine Culture [facility] 06/13 16:00 Order name: SARS-COV-2 Antigen Rapid [facility] 06/13 12:46 Order name: IV Saline Lock; Complete Time: 12:56 rn 06/13 12:46 Order name: Labs collected and sent; Complete Time: 12:56 rn 06/13 12:46 Order name: Urine Dipstick-Ancillary (obtain specimen); Complete Time: 15:04 rn 06/13 12:47 Order name: EKG - Nurse/Tech; Complete Time: 12:47 ll1 EC:48 Rate is 92 beats/min. Rhythm is regular. QRS Simpson is Normal. AL interval is normal. QRS rn interval is normal. QT interval is normal. No Q waves. T waves are Normal. No ST changes noted. Clinical impression: Normal ECG. Interpreted by me. Reviewed by me. Administered Medications: 13:07 Drug: NS 0.9% 1000 ml Route: IV; Rate: 1 bolus; Site: right antecubital; ll1 15:29 Follow up: Response: No adverse reaction; IV Status: Completed infusion; IV Intake: ll1 1000ml 15:29 Drug: Flagyl (metroNIDAZOLE) 500 mg Volume: 100 ml; Route: IVPB; Rate: 200 ml/hr; ll1 Infused Over: 30 mins; Site: right antecubital; 16:00 Follow up: Response: No adverse reaction; IV Status: Completed infusion; IV Intake: [id number] 16:05 Drug: Cipro (ciprofloxacin) 400 mg Volume: 200 ml; Route: IVPB; Infused Over: 60 mins; ll1 Site: right antecubital; 17:07 Follow up: Response: No adverse reaction; IV Status: Completed infusion; IV Intake: ll1 200ml Disposition Summary: 06/13/22 14:53 Hospitalization Ordered Hospitalization Status: Inpatient Admission rn Provider: Gaetano Headley rn Location: Telemetry/MedSurg (Inpatient) rn Condition: Stable rn Problem: new rn Symptoms: have worsened rn Bed/Room Type: Standard rn Room Assignment: 204(06/13/22 17:40) dw Diagnosis - Diverticulitis of large intestine without perforation or abscess without bleeding rn - Delirium due to known physiological condition rn - Dyspnea, unspecified rn - Failure of outpatient therapy rn Forms: - Medication Reconciliation Form rn - SBAR form rn Signatures: Dispatcher [employer] Micaela Grider RN RN dw Nieto, Roman, MD MD rn Lewis, Lynsay, RN RN ll1 Corrections: (The following items were deleted from the chart) 17:40 14:53 rn dw
--- NOTE | 2022-06-13 14:54 | ER ---
Nurse's Notes [facility] Name: Joyce Renee Age: 71 yrs Sex: Female : 1950 Arrival Date: 06/13/2022 Time: 12:22 Bed 2 Private MD: Tosin Melchor Diagnosis: Diverticulitis of large intestine without perforation or abscess without bleeding;Delirium due to known physiological condition;Dyspnea, unspecified;Failure of outpatient therapy Presentation: 06/13 12:40 Chief complaint: Patient states: Ever since Thursday, after starting the medication we ll1 gave her, she started to have SOB, dizzy, palpitations, and BP fluctuating. Was here Thursday for abdominal pain. Coronavirus screen: Vaccine status: Patient reports being unvaccinated. Client denies travel out of the [place] in the last 14 days. fatigue, fever, nausea, shortness of breath, Client presents with at least one sign or symptom that may indicate coronavirus-19. Standard/surgical mask placed on the client. Ebola Screen: Patient denies travel to an Ebola-affected area in the 21 days before illness onset. Initial Sepsis Screen: Does the patient meet any 2 criteria? HR > 90 bpm. No. Patient's initial sepsis screen is negative. Does the patient have a suspected source of infection? Yes: Acute abdominal pain. Risk Assessment: Do you want to hurt yourself or someone else? Patient reports no desire to harm self or others. Onset of symptoms was June 10, 2022. 12:40 Method Of Arrival: Ambulatory ll1 12:40 Acuity: GUCCI 3 ll1 Triage Assessment: 12:43 General: Appears uncomfortable, Behavior is cooperative, appropriate for age. Pain: ll1 Denies pain. Neuro: Reports dizziness. Cardiovascular: Reports lightheadedness, nausea, palpitations, shortness of breath, BP fluctuating. Respiratory: Reports shortness of breath Onset: The symptoms/episode began/occurred 3 days, the patient has mild shortness of breath. Historical: - Allergies: 12:39 Iodine; ll1 - PMHx: 12:39 Atrial Fib; chemotherapy; CML; diverticulosis; Hypertension; Hypothyroidism; Kidney ll1 stone; - Immunization history:: Client reports having NOT received the Covid vaccine. - Social history:: Smoking status: Patient denies any tobacco usage or history of. - Family history:: not pertinent. - Hospitalizations: : No recent hospitalization is reported. Screenin:43 Abuse screen: Denies threats or abuse. Nutritional screening: No deficits noted. ll1 Tuberculosis screening: No symptoms or risk factors identified. Fall Risk IV access (20 points). Total Jules Fall Scale indicates No Risk (0-24 pts). Assessment: 13:45 Reassessment: No changes from previously documented assessment. Patient and/or family ll1 updated on plan of care and expected duration. Pain level reassessed. 14:45 Reassessment: No changes from previously documented assessment. Patient and/or family ll1 updated on plan of care and expected duration. Pain level reassessed. Patient is alert, oriented x 3, equal unlabored respirations, skin warm/dry/pink. 15:30 Reassessment: No changes from previously documented assessment. Patient and/or family ll1 updated on plan of care and expected duration. Pain level reassessed. Patient is alert, oriented x 3, equal unlabored respirations, skin warm/dry/pink. 16:30 Reassessment: No changes from previously documented assessment. Patient and/or family ll1 updated on plan of care and expected duration. Pain level reassessed. Patient is alert, oriented x 3, equal unlabored respirations, skin warm/dry/pink. 17:49 Cardiovascular: Rhythm is regular. Respiratory: Airway is patent Respiratory effort is ll1 even, unlabored, Breath sounds are clear bilaterally. Vital Signs: 12:40 BP 148 / 90; Pulse 99; Resp 17; Temp 97.9; Pulse Ox 100% ; Weight 59.87 kg; Height 5 ll1 ft. 0 in. (152.40 cm); Pain 0/10; 15:33 BP 125 / 66; Pulse 90; ll1 17:03 BP 141 / 68; Pulse 84; Resp 16; Pulse Ox 99% on R/A; ll1 17:47 BP 110 / 55; Pulse 85; Resp 16; Pulse Ox 99% on R/A; ll1 12:40 Body Mass Index 25.78 (59.87 kg, 152.40 cm) ll1 ED Course: 12:22 Patient arrived in ED. mr 12:22 Tosin Melchor MD is Private Physician. mr 12:34 David Dickens MD is Attending Physician. rn 12:39 Maame Rodriguez RN is Primary Nurse. ll1 12:39 Arm band placed on Patient placed in an exam room, on a stretcher. ll1 12:40 Inserted saline lock: 22 gauge in right antecubital area, using aseptic technique. ll1 Blood collected. 12:43 Triage completed. ll1 12:43 Patient has correct armband on for positive identification. Bed in low position. Call ll1 light in reach. Side rails up X2. Client placed on continuous cardiac and pulse oximetry monitoring. NIBP monitoring applied. front desk monitor on. 12:56 XRAY Chest (1 view) In Process Unspecified. EDMS 13:01 CT Abd/Pelvis - Without Contrast In Process Unspecified. EDMS 14:52 Gaetano Headley is Hospitalizing Provider. rn 17:49 No provider procedures requiring assistance completed. ll1 17:50 Patient admitted, IV remains in place. ll1 Administered Medications: 13:07 Drug: NS 0.9% 1000 ml Route: IV; Rate: 1 bolus; Site: right antecubital; ll1 15:29 Follow up: Response: No adverse reaction; IV Status: Completed infusion; IV Intake: ll1 1000ml 15:29 Drug: Flagyl (metroNIDAZOLE) 500 mg Volume: 100 ml; Route: IVPB; Rate: 200 ml/hr; ll1 Infused Over: 30 mins; Site: right antecubital; 16:00 Follow up: Response: No adverse reaction; IV Status: Completed infusion; IV Intake: 13nmjc4 16:05 Drug: Cipro (ciprofloxacin) 400 mg Volume: 200 ml; Route: IVPB; Infused Over: 60 mins; ll1 Site: right antecubital; 17:07 Follow up: Response: No adverse reaction; IV Status: Completed infusion; IV Intake: ll1 200ml Medication: 12:44 VIS not applicable for this client. ll1 Intake: 15:29 IV: 1000ml; Total: 1000ml. ll1 16:00 IV: 50ml; Total: 1050ml. ll1 17:07 IV: 200ml; Total: 1250ml. ll1 Outcome: 14:53 Decision to Hospitalize by Provider. rn 17:49 Admitted to Med/surg accompanied by nurse, via wheelchair, room 204, with chart, Report ll1 called to Iron Pelayo RN on 09 26:49 Condition: stable 17:49 Instructed on the need for admit. 18:11 Patient left the ED. ll1 Signatures: Dispatcher [employer] WILLIMS Choi Abigail Basseto, MD MD sherice Hernandez Lynsay, RN RN ll1 Corrections: (The following items were deleted from the chart) 17:49 17:46 Inserted saline lock: 22 gauge in right antecubital area, using aseptic ll1 technique. Blood collected. ll1
[2022-06-13 15:01] LABS: Urine Blood Trace-lysed (Negative); Urine Glucose Negative (Negative); Urine Protein Negative (Negative)
[2022-06-13] MEDS ORDERED: CIPROFLOXACIN 400mg IV 400 MG/200 ML BAG IV ONE (15:06)
[2022-06-13] MEDS ORDERED: METRONIDAZOLE 500mg IVPB 500 MG/100 ML BAG IV ONE (15:06)
[2022-06-13 15:11] LABS: Urine Mucus Slight /HPF (None Seen)
[2022-06-13 16:31] LABS: SARS-CoV-2 Antigen Rapid Res Negative (Negative)
--- NOTE | 2022-06-13 16:43 | P.HP ---
Certification for Inpatient Patient admitted to: Inpatient With expected LOS: >2 Midnights Practitioner: I am a practitioner with admitting privileges, knowledge of patient current condition, hospital course, and medical plan of care. Services: Services provided to patient in accordance with Admission requirements found in Title 42 Section 412.3 of the Code of Federal Regulations Patient History Date of Service: 06/13/22 Reason for admission: Abdominal pain History of Present Illness: 71-year-old woman with a history of hypertension presented to the emergency department with a complaint of abdominal pain and shortness of breath. She was in the emergency department 3 days ago for abdominal pain and constipation. CT scan revealed diverticulitis. Patient was discharged to home with oral antibiotics. Repeat CT done in the ED today shows worsening diverticulitis. ED physician wishes to admit patient for management of diverticulitis which has failed outpatient treatment. Patient denied any nausea or vomiting. She was eating only liquid diet since discharge from the emergency department. Allergies iodine Allergy (Verified 10/06/18 08:18) Unknown Home Medications: Aspirin [Adult Aspirin] 81 mg PO DAILY 10/06/18 Dronedarone [Multaq] 400 mg PO DAILY 10/06/18 Imatinib Mesylate [Gleevec] 500 mg PO DAILY 10/06/18 Potassium Chloride [Klor-Con] 20 meq PO DAILY 10/06/18 Thyroid,Pork [[place] Thyroid] 60 mg PO DAILY 10/06/18 atenoloL [Tenormin] 25 mg PO DAILY 10/06/18 - Past Medical/Surgical History -: Hypertension -: Hypothyroidism -: Atrial fibrillation - Social History Smoking Status: Never smoker Alcohol use: No CD- Drugs: No Place of Residence: Home Review of Systems Other: She denied any fever or diarrhea. She denied any chest pain. Except as documented, all other systems reviewed and negative. Physical Examination - Physical Exam General: Alert, In no apparent distress, Oriented x3 HEENT: Mucous membr. moist/pink Neck: JVD not distended Respiratory: Clear to auscultation bilaterally, Normal air movement Cardiovascular: No edema, Regular rate/rhythm, Normal S1 S2, No murmurs Gastrointestinal: Normal bowel sounds, Soft and benign, Non-distended, No rebound, No guarding, Tenderness Musculoskeletal: No swelling, No tenderness Integumentary: No rashes, No erythema, No cyanosis Neurological: Normal speech, Normal strength at 5/5 x4 extr, Cranial nerves 3-12 intact Lymphatics: No axilla or inguinal lymphadenopathy - Studies Laboratory Data (last 24 hrs) 06/13/22 12:55: Sodium 135 L, Potassium 3.5, BUN 13, Creatinine 0.80, Glucose 104, Total Bilirubin 0.7, AST 13 L, ALT 21, Alkaline Phosphatase 46, Lipase 97 06/13/22 12:55: WBC 8.70, Hgb 11.2 L, Hct 33.0 L, Plt Count 235 Assessment and Plan - Problems (Diagnosis) (1) Acute diverticulitis Current Visit: Yes Status: Acute (2) Chronic atrial fibrillation Current Visit: Yes Status: Acute - Plan Admit patient to the medical floor. Start IV Zosyn Hydrate with IV normal saline Clear liquid diet. Monitor and optimize electrolytes. Continue Dronedaron for atrial fibrillation. Patient is not on any anticoagulation. Continue home antihypertensives. - Advance Directives Does patient have a Living Will: No Does patient have a Durable POA for Healthcare: No
[2022-06-13] MEDS ORDERED: ACETAMINOPHEN 500 MG TAB PO PRN (18:16)
[2022-06-13] MEDS ORDERED: ONDANSETRON 4 MG/2 ML VIAL IV PRN (18:16)
[2022-06-13 18:31] VITALS: BMI 25.7
[2022-06-13] MEDS: NA CHLORIDE 0.9% 1,000 ML IV SCH (19:37)
[2022-06-13] MEDS: PIPER TAZO 3.375 GM in NA CHLORIDE 0.9% 100 ML IV SCH (19:39)
[2022-06-13 20:27] LABS: Urine Bilirubin NEGATIVE (Negative); Urine Blood Trace (Negative); Urine Clarity Clear (Clear); Urine Color Light-Yellow (Yellow); Urine Glucose NEGATIVE (Negative); Urine Protein NEGATIVE (Negative); Urine RBC <5 /HPF (None Seen); Urine Urobilinogen Normal (Normal); Urine WBC Clump Rare /HPF (None Seen)
[2022-06-13] MEDS: HEPARIN 5000 UNIT/ML 1 ML VIAL SQ SCH (21:00)
[2022-06-13 23:01] VITALS: O2SAT 97
[2022-06-14] MEDS: PIPER TAZO 3.375 GM in NA CHLORIDE 0.9% 100 ML IV SCH ×3 (00:10→13:00)
[2022-06-14] MEDS: HEPARIN 5000 UNIT/ML 1 ML VIAL SQ SCH ×2 (04:05→13:00)
[2022-06-14] MEDS: NA CHLORIDE 0.9% 1,000 ML IV SCH (04:07)
[2022-06-14 05:58] LABS: Absolute Lymphocytes (CBC) 1.1 K/uL (0.7-4.9); Hematocrit 27.5 % (36.0-45.0); Lymphocytes % 17.7 % (15.3-44.8); MCV 91.7 fL (80-100); MPV 7.7 fL (7.6-11.3)
[2022-06-14 06:12] LABS: Magnesium 1.9 mg/dL (1.8-2.4); Phosphorus 2.6 mg/dL (2.5-4.9); Potassium 3.2 mmol/L (3.5-5.1)
[2022-06-14] MEDS ORDERED: POTASSIUM 25 MEQ EFFERV TAB PO ONE (07:10)
[2022-06-14] MEDS ORDERED: POTASSIUM CL SA 10 MEQ TAB PO ONE (09:00)
[2022-06-14] MEDS ORDERED: INFLUENZA VACCINE (for 6+ mo) 0.5 ML DOSE IMVAC ONE (10:00)
[2022-06-14] MEDS ORDERED: PNEUMOCOCCAL VACCINE 0.5 ML IMVAC ONE (10:00)
[2022-06-14 10:55] VITALS: BP 124/58; TEMP 97.4
--- NOTE | 2022-06-14 12:36 | EKG ---
Test Date: 2022-06-13 Test Time: 12:41:53 Fuel Cell Technician: GARCÍA MEASUREMENT RESULTS: Intervals: Rate: 92 FL: 148 QRSD: 76 QT: 358 QTc: 442 [place]: P: 45 FL: 148 QRS: 13 T: 17 INTERPRETIVE STATEMENTS: Normal sinus rhythm Normal ECG No previous ECG available for comparison Electronically Signed On 06-14-22 12:35:48 CDT by Albaro Wilson
--- NOTE | 2022-06-14 12:48 | P.DS ---
Admission Date: 06/13/22 Discharge Date: 06/14/22 Disposition: ROUTINE DISCHARGE Discharge Condition: FAIR Reason for Admission: Abdominal pain - Problems (1) Acute diverticulitis Current Visit: Yes Status: Acute (2) Chronic atrial fibrillation Current Visit: Yes Status: Acute Brief History of Present Illness: 71-year-old woman with a history of hypertension presented to the emergency department with a complaint of abdominal pain and shortness of breath. She was in the emergency department 3 days ago for abdominal pain and constipation. CT scan revealed diverticulitis. Patient was discharged to home with oral antibiotics. Repeat CT done in the ED today shows worsening diverticulitis. Patient admitted for further management. Hospital Course: She was treated with IV Zosyn, started on clear liquid diet. She was asymptomatic during the hospital stay, denied any abdominal pain. She had a bowel movement. Patient is currently asymptomatic tolerating diet, no tenderness on abdominal examination. Patient is deemed stable for discharge. He is prescribed Augmentin and Flagyl to continue treatment for acute diverticulitis. Vital Signs/Physical Exam: Temp Pulse Resp BP Pulse Ox 97.4 F 81 18 124/58 L 98 06/14/22 08:00 06/14/22 08:00 06/14/22 08:00 06/14/22 08:00 06/14/22 08:00 General: Alert, In no apparent distress, Oriented x3 HEENT: Mucous membr. moist/pink Neck: JVD not distended Respiratory: Clear to auscultation bilaterally, Normal air movement Cardiovascular: No edema, Regular rate/rhythm, Normal S1 S2 Gastrointestinal: Normal bowel sounds, Soft and benign, Non-distended, No tenderness Musculoskeletal: No swelling Integumentary: No rashes Neurological: Normal strength at 5/5 x4 extr Laboratory Data at Discharge: WBC 6.50 K/uL (4.3-10.9) 06/14/22 05:33 Hgb 9.6 g/dL (12.0-15.0) L D 06/14/22 05:33 Hct 27.5 % (36.0-45.0) L 06/14/22 05:33 Plt Count 210 K/uL (152-406) 06/14/22 05:33 Sodium 140 mmol/L (136-145) D 06/14/22 05:33 Potassium Cancelled 06/14/22 13:00 BUN 9 mg/dL (7-18) 06/14/22 05:33 Creatinine 0.71 mg/dL (0.55-1.3) 06/14/22 05:33 Glucose 93 mg/dL (74-106) 06/14/22 05:33 Phosphorus 2.6 mg/dL (2.5-4.9) 06/14/22 05:33 Magnesium 1.9 mg/dL (1.8-2.4) 06/14/22 05:33 Total Bilirubin 0.7 mg/dL (0.2-1.0) 06/13/22 12:55 AST 13 U/L (15-37) L 06/13/22 12:55 ALT 21 U/L (12-78) 06/13/22 12:55 Alkaline Phosphatase 46 U/L (45-117) 06/13/22 12:55 Lipase 97 U/L (73-393) 06/13/22 12:55 Home Medications: Aspirin [Adult Aspirin] 81 mg PO DAILY 10/06/18 Imatinib Mesylate [Gleevec] 400 mg PO DAILY 10/06/18 Thyroid,Pork [[place] Thyroid] 60 mg PO DAILY 10/06/18 Amox/Clavulanate [Augmentin 875-125 Tab] 1 each PO BID #14 tab 06/14/22 metroNIDAZOLE [Flagyl] 500 mg PO Q8H #21 tab 06/14/22 New Medications: Amox/Clavulanate [Augmentin 875-125 Tab] 1 each PO BID #14 tab metroNIDAZOLE [Flagyl] 500 mg PO Q8H #21 tab Diet: AHA (Low residue diet) Activity: Ad kyrie Followup: Tosin Melchor DO [Primary Care Provider] - 1 Week
== END 2022-06-14 13:55 | disposition home or self-care (01) ==
LOC: ER 12:20 → ERHOLD 16:26 → INTOOBSV 16:26 → 2ND 17:51
PROVIDERS: ADMIT Internal Medicine; ATTEND Internal Medicine
DX: K57.92 Diverticulitis of intestine, part unspecified, without perforation or abscess without bleeding (principal); I10 Essential (primary) hypertension; E03.9 Hypothyroidism, unspecified; I48.11 Longstanding persistent atrial fibrillation; Z20.822 Contact with and (suspected) exposure to COVID-19
CPT/HCPCS: 96365; 96367; 96361; 93005; 85025 ×2; 81001; 87086; 80048; 36415; 83735; 84100; 83690; 80053; 83880; 74176; 71045; 90471 ×2; 90732; 99285; 87811; Q2035; J2543 ×3; J7030 ×3; J0744; 81003; 81015; 87088; G0378; J1644

== ENCOUNTER 2022-08-29 15:37 | Emergency (ER) | payer OTHER ==
--- OUTSIDE RECORDS SUMMARY | 2022-08-29 15:42 | XMS REPORT | Continuity of Care Document ---
:1950 Author Organization [facility] t Address [address] [place] [address] Care Team Providers Name Role Phone [phone] Primary Care Physician Unavailable Tosin Melchor Attending [...] Unknown, Attending Attending Clinician Unavailable Doctor Unassigned, [place] Attending Clinician Unavailable BRITTNI GUTIERREZ Admitting Clinician Unavailable Payers Payer Name Policy Type Policy Number Effective Date Expiration Date S marcelo [facility] [id number] 2021 (MEDICARE 00:00:00 REPLACEMENT HMO) [employer] [id number] 2018spring 00:00:00 [place] [address] [id number] [facility] [place] [address] [id number] [facility] [id number] [facility] [place] [address] [id number] Common [facility] Problems Condition Condition Condition Status Onset Resolution Last Treating Co mments Source Name Details Category Date Date Treatment Clinician Date UTI UTI Disease Active Univers (urinary (urinary 2-28 ity of tract tract 00:00: [place] infection) infection) 00 Me dical Branch 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 on fibrillati St (disorder) 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, myelocytic - C HI disease leukemia) [facility] Diverticul Diverticul Problem C ommon osis of osis of [facility] colon colon [facility] [id number] Sciatica Problem Commo n of left Spirit side [facility] [id number] Impacted Problem Com mon [id number] cerumen, [facility] left ear [facility] [id number] Depression Problem Co mmon with Spirit anxiety [facility] [id number] Well adult Problem Co mmon exam [facility] Hip joint Hip joint Problem Com mon pain Pain in Spirit unspecifie - [facility] d hip [facility] [id number] Seasonal Problem Comm on allergic Spirit rhinitis, - [facility] unspecifie [place] [facility] +5th digit Problem C ommon hageal eff Spirit reflux 05/10/20*[place] - [facility] disease stroesopha St with geal [facility] esophagiti reflux Medica l s disease Center with esophagiti s Renal Renal Problem Common insufficie insufficie Sp tom ncy ncy [facility] [id number] Paresthesi Problem Com mon a of skin Spirit - [facility] Allergies, Adverse Reactions, Alerts Allergy Allergy [...] Products 463 Drug Active Unknown Common allergy [facility] Social History Social Habit Start Date Stop Date Quantity Comments Source History of Tobacco [facility] Use [facility] Sex Assigned At Common Sp tom - [facility] Exposure to 2022-01-18 2022-01-28 Not sure [facility] SARS-CoV-2 (event) 00:00:00 14:44:00 Medica l Branch Alcohol intake 2022-01-28 2022-01-28 .14 /d [facility] 00:00:00 00:00:00 [facility] Tobacco use and 2016-10-07 2016-10-07 Never used [facility] exposure 00:00:00 00:00:00 [facility] Smoking Status Start Date Stop Date Source Never Smoker [facility] Medications Ordered Filled Start Stop Current Ordering Indication Dosage Frequency Signature Comments Components Source Medication Medication Date Date Medication? Clinician (SIG) Name Name Zofran 4 MG Zofran 4 MG 2021-08 No BID Zofran 4 0-14 MG 00:00: 00 Zofran 4 MG Zofran 4 MG 2021-08 No BID Zofran 4 0-14 MG 00:00: 00 Zofran 4 MG Zofran 4 MG 2021-08 No BID Zofran 4 0-14 MG 00:00: 00 Zofran 4 MG Zofran 4 MG 2021-08 No BID Zofran 4 0-14 MG 00:00: 00 Zofran 4 MG Zofran 4 MG 2021-08 No BID Zofran 4 0-14 MG 00:00: 00 Zofran 4 MG Zofran 4 MG 2021-08 No BID Zofran 4 0-14 MG 00:00: 00 amoxicillin 2021-0 2021- No [id number] 1{tbl} Take 1 Univers -clavulanat 6-20 -28 tablet by it y of e 875-125 00:00: 04:59 mouth [place] mg per 00 :00 every 12 Medical tablet (twelve) Branch hours for 7 days. amoxicillin 2021-0 2021- No [id number] 1{tbl} Take 1 Univers -clavulanat 6-20 -28 tablet by it y of e 875-125 00:00: 04:59 mouth [place] mg per 00 :00 every 12 Medical tablet (twelve) Branch hours for 7 days. dronedarone Yes 200mg Take 200 U nivers 400 mg 6-01 mg by ity of tablet 16:21: mouth 2 [place] [address] (two) Medical times [place] daily with meals. aspirin 81 Yes 81mg Take 81 mg U nivers mg chewable 6-01 by mouth ity of tablet 16:21: daily. [address] atenolol 25 Yes 25mg Take 25 mg Univers mg tablet 6-01 by mouth ity of 16:21: daily. [address] thyroid Yes 60mg Take 60 mg [...] by ity of tablet 11:21: mouth 2 [place] [address] (two) Medical times Branch daily with meals. aspirin 81 0 Yes 81mg Take 81 mg U nivers mg chewable 6-01 by mouth ity of tablet 11:21: daily. [address] atenolol 25 0 Yes 25mg Take 25 mg Univers mg tablet 6-01 by mouth ity of 11:21: daily. [address] thyroid 0 Yes 60mg Take 60 [...] by ity of tablet 11:21: mouth 2 [place] 25 (two) Medical times Branch daily with meals. aspirin 81 0 Yes 81mg Take 81 mg U nivers mg chewable 6-01 by mouth ity of tablet 11:21: daily. [address] atenolol 25 Yes 25mg Take 25 mg Univers mg tablet 6-01 by mouth ity of 11:21: daily. [address] Branch thyroid Yes 60mg Take 60 [...] by ity of tablet 11:21: mouth 2 [place] [address] (two) Medical times [place] daily with meals. aspirin 81 0 Yes 81mg Take 81 mg U nivers mg chewable 6-01 by mouth ity of tablet 11:21: daily. [address] atenolol 25 Yes 25mg Take 25 mg Univers mg tablet 6-01 by mouth ity of 11:21: daily. [address] Branch thyroid 0 Yes 60mg Take 60 mg Univ ers (ARMOUR 6-01 by mouth ity of THYROID) 60 11:21: every [place] mg tablet 25 morning. Medica l Branch imatinib 0 Yes 400mg Take 400 Univ ers 100 mg 6-01 mg by ity of tablet 11:21: mouth [place] 25 daily Medical Branch cephALEXin 2020-0 2020- No [id number] 500mg Take 1 Univers (KEFLEX) 6- 06-09 capsule by ity of 500 mg 00:00: 04:59 mouth 3 [place] capsule 00 :00 (three) Medical times Branch daily for 7 days. EpiPen EpiPen Yes Na Melchor as Common 2-Chung 2-Chung 7-31 directed Spirit 00:00: - CHI 00 [facility] EpiPen EpiPen 2020-0 No EpiPen 2-Chung 0.3 2-Chung 0.3 7-31 2-Chung 0.3 MG/0.3ML MG/0.3ML 00:00: MG/0.3ML 00 EpiPen EpiPen 2020-0 No EpiPen 2-Chung 0.3 2-Chung 0.3 7-31 2-Chung 0.3 MG/0.3ML MG/0.3ML 00:00: MG/0.3ML 00 EpiPen EpiPen 2020-0 No 2-Chung 0.3 2-Chung 0.3 7-31 MG/0.3ML MG/0.3ML 00:00: 00 EpiPen EpiPen 2020-0 No 2-Chung 0.3 2-Chung 0.3 7-31 MG/0.3ML MG/0.3ML 00:00: 00 EpiPen EpiPen 2020-0 No EpiPen 2-Chung 0.3 2-Chung 0.3 7-31 2-Chung 0.3 MG/0.3ML MG/0.3ML 00:00: MG/0.3ML 00 dicyclomine 2018-08 Yes [id number] 20mg Take 1 Univers (BENTYL) 20 2-16 tablet by ity of mg tablet 00:00: mouth [place] 00 every 6 Medical (six) Branch hours as needed for Abdominal pain. proMETHazin 2018-08 Yes [id number] 25mg Take 1 U nivers e 25 mg 2-16 tablet by ity of tablet 00:00: mouth [place] 00 every 6 Medical (six) Branch hours as needed for Nausea and Vomiting (N/V). cephALEXin 2018-08 Yes [id number] 250mg Take 1 Univers (KEFLEX) 2-16 capsule by ity o f 250 mg 00:00: mouth [place] capsule 00 every 6 Medical (six) Branch hours. dicyclomine 2018-08 Yes [id number] 20mg Take 1 Univers (BENTYL) 20 2-16 tablet by ity of mg tablet 00:00: mouth [place] 00 every 6 Medical (six) Branch hours as needed for Abdominal pain. proMETHazin 2018-08 Yes [id number] 25mg Take 1 U nivers e 25 mg 2-16 tablet by ity of tablet 00:00: mouth [place] 00 every 6 Medical (six) Branch hours as needed for Nausea and Vomiting (N/V). dicyclomine 2018-08 Yes [id number] 20mg Take 1 Univers (BENTYL) 20 2-16 tablet by ity of mg tablet 00:00: mouth [place] 00 every 6 Medical (six) Branch hours as needed for Abdominal pain. proMETHazin 2018-08 Yes [id number] 25mg Take 1 U nivers e 25 mg 2-16 tablet by ity of tablet 00:00: mouth [place] 00 every 6 Medical (six) Branch hours as needed for Nausea and Vomiting (N/V). dicyclomine 2018-08 Yes [id number] 20mg Take 1 Univers (BENTYL) 20 2-16 tablet by ity of mg tablet 00:00: mouth [place] 00 every 6 Medical (six) Branch hours as needed for Abdominal pain. proMETHazin 2018-08 Yes [id number] 25mg Take 1 U nivers e 25 mg 2-16 tablet by ity of tablet 00:00: mouth [place] 00 every 6 Medical (six) Branch hours as needed for Nausea and Vomiting (N/V). dicyclomine 2018-08 Yes [id number] 20mg Take 1 Univers (BENTYL) 20 2-16 tablet by ity of mg tablet 00:00: mouth [place] 00 every 6 Medical (six) Branch hours as needed for Abdominal pain. proMETHazin 2018-08 Yes [id number] 25mg Take 1 U nivers e 25 mg 2-16 tablet by ity of tablet 00:00: mouth [place] 00 every 6 Medical (six) Branch hours as needed for Nausea and Vomiting (N/V). cephALEXin 2018-08- No [id number] 250mg Take 1 Univers (KEFLEX) 2-16 - capsule by ity of 250 mg 00:00: 00:00 mouth [place] capsule 00 :00 every 6 Medical (six) Branch hours. dronedarone Yes 200mg Take 200 U nivers 400 mg 4-17 mg by ity of tablet 16:50: mouth 2 [place] 17 (two) Medical times Branch daily with meals. atenolol 25 Yes 25mg Take 25 mg Univers mg tablet 4-17 by mouth ity of 16:50: daily. [place] 17 Medical Branch imatinib 2017-0 Yes 600mg Take 600 Univ ers 100 mg 4-17 mg by ity of tablet 16:50: mouth [place] 17 daily. Medical Branch aspirin 81 2017- Yes 81mg Take 81 mg U nivers mg chewable 3-23 by mouth ity of tablet 22:16: daily. [place] 18 Medical Branch thyroid 2017- Yes 60mg Take 60 mg Univ ers [...] 4-6) or Pain (scale 7-10). traMADOL 50 Yes 50mg Take 1 Univ ers mg tablet 3-02 tablet by ity o f 00:00: mouth [place] 00 every 4 Medical (four) Branch hours. traMADOL 50 Yes 50mg Take 1 Univ ers mg [...] 00 every 4 Medical (four) Branch hours. [place] Yes Na Melchor 1 tablet Comm on Thyroid Thyroid on an Spirit empty - CHI stomach [facility] Vitamin D3 Vitamin D3 Yes Na Melchor not Common Complete Complete defined Spir [facility] Pantoprazol Pantoprazol Yes Na Melchor 1 tablet Common e Sodium e Sodium [facility] Gleevec Gleevec Yes Na Melchor 1 tablet Co mmon with a Spirit meal and a - CHI large St glass [facility] Yes Na Melchor TAKE Common ONE-HALF Spirit TABLET BY - CHI MOUTH [facility] Clindamycin Clindamycin Yes Na Melchor 1 capsules Common HCl HCl [facility] Yes Na Melchor 1/2 tablet Co mmon with meals [facility] Macrobid Macrobid Yes Na Melchor 1 capsule Common with food [facility] Macrobid Macrobid No 1{capsu BID Macrobid 100 MG 100 MG le_with 100 MG _food} Aspir-Low Aspir-Low No 1{table QD Aspir-Low 81 MG 81 MG t} 81 MG [place] No 1{table QD [place] Thyroid 60 Thyroid 60 t_on_an Thyroid 60 [...] 81 MG 81 MG t} 81 MG [place] No 1{table QD [place] Thyroid 60 Thyroid 60 t_on_an Thyroid 60 [...] HCl 300 MG HCl 300 MG les} [place] No 1{table QD Thyroid 60 Thyroid 60 [...] HCl 300 MG HCl 300 MG les} Jose Enrique Quispe No 1{table QD Thyroid 60 Thyroid 60 t_on_an MG MG _empty_ stomach } Pantoprazol Pantoprazol No 1{table QD e Sodium 40 e Sodium 40 t} MG MG Vitamin D3 Vitamin D3 No Complete - Complete - Gleevec 400 Gleevec 400 No 1{table QD MG MG t_with_ a_meal_ and_a_l arge_gl ass_of_ water} Jose Enrique Quispe No 1{table QD [place] Thyroid 60 Thyroid 60 t_on_an Thyroid 60 [...] 300 MG les} n HCl 300 MG Jose Enrique Quispe No 1{table QD [place] Thyroid 60 Thyroid 60 t_on_an Thyroid 60 [...] t} le Sodium MG MG 40 MG [place] No 1{table QD [place] Thyroid 60 Thyroid 60 t_on_an Thyroid 60 [...] t} le Sodium MG MG 40 MG [place] No 1{table QD [place] Thyroid 60 Thyroid 60 t_on_an Thyroid 60 [...] t} le Sodium MG MG 40 MG [place] No 1{table QD [place] Thyroid 60 Thyroid 60 t_on_an Thyroid 60 [...] 0.3 0.3 e 0.3 MG/0.3ML MG/0.3ML MG/0.3ML Jose Enrique Quispe No 1{table QD [place] Thyroid 60 Thyroid 60 t_on_an Thyroid 60 [...] 0.3 0.3 e 0.3 MG/0.3ML MG/0.3ML MG/0.3ML Jose Enrique Quispe No 1{table QD [place] Thyroid 60 Thyroid 60 t_on_an Thyroid 60 [...] 0.3 0.3 e 0.3 MG/0.3ML MG/0.3ML MG/0.3ML [facility] No 1{table QD [place] Thyroid 60 Thyroid 60 t_on_an Thyroid 60 MG MG _empty_ MG stomach } Macrobid Macrobid No 1{capsu BID Macrobid 100 MG 100 MG le_with 100 MG _food} Vitamin D3 Vitamin D3 No Vitamin D3 Complete - Complete - Complete - [facility] No 1{table QD [place] Thyroid 60 Thyroid 60 t_on_an Thyroid 60 [...] D3 Complete - Complete - Complete - [facility] No 1{table QD [place] Thyroid 60 Thyroid 60 t_on_an Thyroid 60 [...] D3 Complete - Complete - Complete - [facility] No 1{table QD [place] Thyroid 60 Thyroid 60 t_on_an Thyroid 60 [...] t} le Sodium MG MG 40 MG [place] No 1{table QD [place] Thyroid 60 Thyroid 60 t_on_an Thyroid 60 MG MG _empty_ MG stomach } Gleevec 400 Gleevec 400 No 1{table QD Gleevec MG MG t_with_ 400 MG a_meal_ and_a_l arge_gl ass_of_ water} Macrobid Macrobid No 1{capsu BID Macrobid 100 [...] t} le Sodium MG MG 40 MG [place] No 1{table QD [place] Thyroid 60 Thyroid 60 t_on_an Thyroid 60 MG MG _empty_ MG stomach } Gleevec 400 Gleevec 400 No 1{table QD Gleevec MG MG t_with_ 400 MG a_meal_ and_a_l arge_gl ass_of_ water} Macrobid Macrobid No 1{capsu BID Macrobid 100 [...] t} le Sodium MG MG 40 MG [place] No 1{table QD [place] Thyroid 60 Thyroid 60 t_on_an Thyroid 60 MG MG _empty_ MG stomach } Gleevec 400 Gleevec 400 No 1{table QD Gleevec MG MG t_with_ 400 MG a_meal_ and_a_l arge_gl ass_of_ water} Macrobid Macrobid No 1{capsu BID Macrobid 100 [...] No BID Multaq 400 MG MG MG Pantoprazol Pantoprazol [...] 0.3 0.3 e 0.3 MG/0.3ML MG/0.3ML MG/0.3ML [place] No 1{table QD [place] Thyroid 60 Thyroid 60 t_on_an Thyroid 60 MG MG _empty_ MG stomach } Macrobid Macrobid No 1{capsu BID Macrobid 100 MG 100 MG le_with 100 MG _food} Vital Signs Vital Name Observation Time Observation Value Comments Source height 2022-06-26 10:20:00 60.00 [in_i] [facility] weight 2022-06-26 10:20:00 128 [lb_av] [facility] bmi 2022-06-26 10:20:00 25 kg/m2 [facility] Systolic blood 2022-01-28 19:57:00 118 mm[Hg] Univer [facility]ity of [facility] Diastolic blood 2022-01-28 19:57:00 74 mm[Hg] Unive rsity of [facility] Heart rate 2022-01-28 19:57:00 80 /min Universi ty of [facility] Body temperature 2022-01-28 19:57:00 37.44 Odalys Univ ersity of [facility] Branch Respiratory rate 2022-01-28 19:57:00 16 /min Univ ersity of [facility] Body height 2022-01-28 19:57:00 152.4 cm Universi ty of [facility] Body weight 2022-01-28 19:57:00 62.143 kg Universi ty of [place] [facility] [place] BMI 2022-01-28 19:57:00 26.76 kg/m2 Universi ty of [facility] Oxygen saturation in 2022-01-28 19:57:00 98 /min University of Arterial blood by [facility] Pulse oximetry Branch Systolic blood 2022-01-27 21:02:31 118 mm[Hg] Univer [facility]ity of [facility] Diastolic blood 2022-01-27 21:02:31 65 mm[Hg] Unive rsity of pressure [facility] Heart rate 2022-01-27 21:02:31 75 /min Universi ty of [place] [facility] Branch Respiratory rate 2022-01-27 21:02:31 18 /min Univ ersity of [facility] Oxygen saturation in 2022-01-27 21:02:31 97 /min University of Arterial blood by [facility] Pulse oximetry Branch Body temperature 2022-01-27 19:00:00 37.17 Odalys Univ ersity of [facility] Body weight 2022-01-27 19:00:00 61.689 kg Universi ty of [place] [facility] BMI 2022-01-27 19:00:00 25.70 kg/m2 [facility] height 2021-12-31 13:00:00 60.00 [in_i] [facility] 2021-12-31 13:00:00 138.6 [lb_av] Common [facility] temperature 2021-12-31 13:00:00 97.5 [degF] Common S pirit [facility] bmi 2021-12-31 13:00:00 27.07 kg/m2 Common S [facility] oximetry 2021-12-31 13:00:00 98 % Common [facility] respiratory rate 2021-12-31 13:00:00 15 /min Comm [facility] blood pressure 2021-12-31 13:00:00 123 mm[Hg] Common [facility] - systolic [facility] blood pressure 2021-12-31 13:00:00 58 mm[Hg] [facility] - diastolic [facility] height 2021-06-18 11:40:00 60.00 [in_i] Common S [facility] weight 2021-06-18 11:40:00 134 [lb_av] [facility] temperature 2021-06-18 11:40:00 96.5 [degF] [facility] bmi 2021-06-18 11:40:00 26.17 kg/m2 [facility] 2021-06-18 11:40:00 96 % [facility] blood pressure 2021-06-18 11:40:00 115 mm[Hg] [facility] - systolic [facility] blood pressure 2021-06-18 11:40:00 85 mm[Hg] [facility] - diastolic [facility] height 2021-06-18 10:00:00 60.00 [in_i] Common S pirit [facility] weight 2021-06-18 10:00:00 134 [lb_av] Common S pirit [facility] temperature 2021-06-18 10:00:00 96.5 [degF] Common S [facility] bmi 2021-06-18 10:00:00 26.17 kg/m2 Common S [facility] oximetry 2021-06-18 10:00:00 96 % Common [facility] respiratory rate 2021-06-18 10:00:00 17 /min Comm on Spirit - [facility] blood pressure 2021-06-18 10:00:00 115 mm[Hg] [facility] - systolic [facility] blood pressure 2021-06-18 10:00:00 58 mm[Hg] Common [facility] - diastolic [facility] Systolic blood 2021-01-08 16:22:00 143 mm[Hg] [facility] blood 2021-01-08 16:22:00 78 mm[facility]Hg[facility] 2021-01-08 16:21:00 85 /min [facility] Body temperature 2021-01-08 16:21:00 37.22 Odalys [facility] Respiratory rate 2021-01-08 16:21:00 18 /min [facility] Body height 2021-01-08 16:21:00 154.9 cm [facility] Body weight 2021-01-08 16:21:00 61.689 kg [facility] BMI 2021-01-08 16:21:00 25.70 kg/m2 [facility] Oxygen saturation in 2021-01-08 16:21:00 98 /min [facility] Arterial blood by [facility] Pulse oximetry Branch Procedures Procedure Date / Time Performed Performing Clinician Goldie delaney CT ABDOMEN PELVIS WO 2022-01-27 19:43:48 Brittni Gutierrez [facility] LIPASE 2022-01-27 19:33:00 Brittni Gutierrez [facility] TROPONIN I 2022-01-27 19:33:00 Brittni Gutierrez [facility] COMP. METABOLIC PANEL 2022-01-27 19:33:00 Brittni Gutierrez [facility] ([id number]) Medical Branch CBC WITH DIFF 2022-01-27 19:33:00 Brittni Gutierrez [facility] URINALYSIS 2022-01-27 19:33:00 Brittni Gutierrez [facility] CONSENT/REFUSAL FOR 2022-01-27 18:58:06 Doctor Unassigned, No [facility] DIAGNOSIS AND Name Medical Branch TREATMENT NOTICE OF PRIVACY 2022-01-27 18:57:42 Doctor Unassigned, No [facility] PRACTICES Name Medical Branch ASSIGNMENT OF BENEFITS 2021-01-08 15:49:35 Doctor Unassigned, No [facility] Branch POCT URINALYSIS 2021-01-08 00:00:00 Jeaneth Jolley [place] [facility] Encounters Start End Encounter Admission Attending Care Care Encounter Source Date/Time Date/Time Type Type Clinicians Facility Department ID 2022-06-24 Outpatient Melchor, Na STLMLC STLMLC [id number] 2 Common 15:39:00 [id number] [facility] 2022-04-17 Outpatient Melchor, Na STLMLC STLMLC [id number] 2 Common 14:37:00 [id number] [facility] 2022-02-18 Outpatient Melchor, Na STLMLC STLMLC [id number] 2 Common 14:20:00 [id number] [facility] 2021 Outpatient Melchor, Na STLMLC STLMLC [id number] 2 Common 14:10:00 [id number] [facility] 2021 Outpatient Melchor, Na STLMLC STLMLC [id number] 2 Common 13:58:14 [id number] [facility] 2021 Outpatient Melchor, Na STLMLC STLMLC [id number] 2 Common 13:38:40 [id number] [facility] 2021 Outpatient Melchor, Na STLMLC STLMLC [id number] 2 Common 13:35:38 [id number] [facility] 2021 Outpatient Melchor, Na STLMLC STLMLC [id number] 2 Common 12:40:44 [id number] [facility] 2021 Outpatient Melchor, Na STLMLC STLMLC [id number] 2 Common 12:38:07 [id number] [facility] 2021 Outpatient Melchor, Na STLMLC STLMLC [id number] 2 Common 12:37:19 [id number] [facility] 2021 Outpatient Melchor, Na STLMLC STLMLC [id number] 2 Common 12:36:41 [id number] [facility] 2021 Outpatient Melchor, Na STLMLC STLMLC [id number] 2 Common 12:31:16 [id number] [facility] 2021 Outpatient Melchor, Na STLMLC STLMLC [id number] 2 Common 12:22:41 [id number] [facility] 2021 Outpatient Melchor, Na STLMLC STLMLC [id number] 2 Common 12:20:37 [id number] [facility] 2021 Outpatient Melchor, Na STLMLC STLMLC [id number] 2 Common 11:31:52 [id number] [facility] 2021 Outpatient Melchor, Na STLMLC STLMLC [id number] 2 Common 11:18:56 [id number] [facility] 2021 Outpatient Melchor, Na STLMLC STLMLC [id number] 2 Common 11:00:35 [id number] [facility] 2022-08-13 2022-08-13 (TEL) STLMLC STLMLC [id number] Co mmon 00:00:00 00:00:00 [facility] 2022-06-30 2022-06-30 (TEL) STLMLC STLMLC [id number] Co mmon 00:00:00 00:00:00 [facility] 2022-06-26 2022-06-26 OL DIG E/M STLMLC STLMLC [id number] Common 00:00:00 00:00:00 [facility] 11-20 Spir it MIN [facility] 2022-06-17 2022-06-17 (TEL) STLMLC STLMLC [id number] Co mmon 00:00:00 00:00:00 [facility] 2022-06-12 2022-06-12 (TEL) STLMLC STLMLC [id number] Co mmon 00:00:00 00:00:00 [facility] 2022-05-23 2022-05-23 (TEL) STLMLC STLMLC [id number] Co mmon 00:00:00 00:00:00 [facility] 2022-05-16 2022-05-16 (TEL) STLMLC STLMLC [id number] Co mmon 00:00:00 00:00:00 [facility] 2022-04-21 2022-04-21 (TEL) STLMLC STLMLC [id number] Co mmon 00:00:00 00:00:00 [facility] 2022-04-21 2022-04-21 OL DIG E/M STLMLC STLMLC [id number] Common 00:00:00 00:00:00 [facility] -20 Spir it MIN [facility] 2022-04-10 2022-04-10 (TEL) STLMLC STLMLC [id number] Co mmon 00:00:00 00:00:00 [facility] 2022-02-21 2022-02-21 [place] [id number] Devoted 07:08:00 07:08:00 [id number] Medica l Group 2022-01-28 2022-01-28 Nurse Nurse, [facility] [id number] Univers 14:45:00 15:05:00 Visit Prema Mcnally [facility] [id number] Eddie [id number] Rubio as MOHIT?BLEA [id number] Me [address] MEDICAL OFFICE BUILDING 2022-01-28 2022-01-28 Outpatient R LEVAR [facility] [id number] Univers 14:45:00 14:45:00 PREMA isaactala o shirin [facility] 2022-01-27 2022-01-27 Emergency X MATT, [place] [facility] [facility] ERT [id number] Univers 14:02:00 16:20:00 BRITTNI [facility] 2022-01-27 2022-01-27 [facility] [id number] Univers 14:02:00 16:20:00 Brittni CHILEL [id number] ity [facility]i [facility] [id number] [facility] [phone] [place] [id number] [place] 2022-01-16 2022-01-16 (TEL) STLMLC STLMLC [id number] Co mmon 00:00:00 00:00:00 [facility] 2021-12-31 2021-12-31 OFFICE STLMLC STLMLC [id number] Co mmon 00:00:00 00:00:00 VISIT [facility] LEVEL 4 [facility] 2021-12-09 2021-12-09 (TEL) STLMLC STLMLC [id number] Co mmon 00:00:00 00:00:00 [facility] 2021-11-08 2021-11-08 (TEL) STLMLC STLMLC [id number] Co mmon 00:00:00 00:00:00 [facility] 2021-08-16 2021-08-16 Laboratory Only, Ang Db Test [facility] 1.2.8 [id number] [id number] Univers 13:30:00 13:45:00 Only Verónica Reyes [facility] [id number] itFlash [id number] Rubio as MOHIT?BLEA [phone] Ny [address] MEDICAL OFFICE BUILDING 2021-08-16 2021-08-16 Outpatient R ERIC [facility] [id number] Univers 13:30:00 13:30:00 VERÓNICA carpio [facility] 2021-08-16 2021-08-16 Outpatient R FADY [facility] [id number] Univers 13:00:00 13:00:00 JENNIFER helena [facility] 2021-06-19 2021-06-19 Outpatient DMG DMG [id number] [facility]oted 08:00:00 08:00:00 1110 [facility] 2021-06-18 2021-06-18 OFFICE STLMLC STLMLC [id number] Co mmon 00:00:00 00:00:00 VISIT EST Spir it PT LEVEL 3 - [facility] 2021-06-18 2021-06-18 SUB ANNUAL STLMLC STLMLC [id number] Common 00:00:00 00:00:00 MCR [facility] VISIT [facility] 2021-06-06 2021-06-06 (TEL) STLMLC STLMLC [id number] Co mmon 00:00:00 00:00:00 [facility] 2021-05-13 2021-05-13 (TEL) STLMLC STLMLC [id number] Co mmon 00:00:00 00:00:00 [facility] 2021-05-03 2021-05-03 Outpatient DMG DMG [id number] [facility] 08:00:00 08:00:00 0924 Medica l [facility] 2021-03-29 2021-03-29 Outpatient STLMLC STLMLC [id number] Common 00:00:00 00:00:00 [facility] 2021-03-25 2021-03-25 Outpatient STLMLC STLMLC [id number] Common 00:00:00 00:00:00 [facility] 2021-03-18 2021-03-18 Outpatient STLMLC STLMLC [id number] Common 00:00:00 00:00:00 [facility] 2021-01-21 2021-01-21 Outpatient STLMLC STLMLC [id number] Common 00:00:00 00:00:00 [facility] 2021-01-21 2021-01-21 Outpatient STLMLC STLMLC [id number] Common 00:00:00 00:00:00 [facility] 2021-01-18 2021-01-18 Outpatient STLMLC STLMLC [id number] Common 00:00:00 00:00:00 [facility] 2021-01-08 2021-01-08 Outpatient R LESLIE [facility] [id number] Univers 11:00:00 12:06:23 AMIE ity of [facility] 2021-01-08 2021-01-08 Urgent Provider, [facility] [id number] Univers 10:52:20 12:06:23 Care Unknown, Attending Health [id number] ity of [place] [id number] Rubio as Professio [phone] [address] Office Building One 2021-01-08 2021-01-08 Orders Doctor GOYO 1.2.840.114 [id number] Univers 00:00:00 00:00:00 Only Unassigned, CORBIN [id number] [facility] [id number] Rubio as [phone] [address] 2020-12-18 2020-12-18 Outpatient STLMLC STLMLC [id number] Common 00:00:00 00:00:00 [facility] 2020-11-08 2020-11-08 Outpatient STLMLC STLMLC [id number] Common 00:00:00 00:00:00 [facility] 2020-10-24 2020-10-24 Outpatient STLMLC STLMLC [id number] Common 00:00:00 00:00:00 [facility] 2020-10-16 2020-10-16 Outpatient STLMLC STLMLC [id number] Common 00:00:00 00:00:00 [facility] 2020-06-25 2020-06-25 Outpatient STLMLC STLMLC [id number] Common 00:00:00 00:00:00 [facility] 2020-06-19 2020-06-19 Outpatient STLMLC STLMLC [id number] Common 00:00:00 00:00:00 [facility] 2020-06-05 2020-06-05 Outpatient STLMLC STLMLC [id number] Common 00:00:00 00:00:00 [facility] 2020-04-18 2020-04-18 [facility] [id number] Common 16:59:00 16:59:[address] [facility] 2020-04-18 2020-04-18 [facility] [id number] Common 16:59:00 16:59:[address] [facility] 2020-03-08 2020-03-08 [facility] [id number] Common 15:32:00 15:32:[address] [facility] 2019-12-26 2019-12-26 [facility] [id number] Common 10:20:00 10:20:[address] [facility] 2019-12-05 2019-12-05 [facility] [id number] Common 14:00:00 14:00:[address] [facility] 2019-11-03 2019-11-03 [facility] [id number] Common 09:28:00 09:28:[address] [facility] 2019-09-06 2019-09-06 [facility] [id number] Common 09:40:00 09:40:[address] [facility] 2019-08-29 2019-08-29 [facility] [id number] Common 16:20:00 16:20:[address] [facility] 2019-06-28 2019-06-28 Out[facility] [id number] Common 10:24:00 10:24:[address] [facility] 2019-06-15 2019-06-15 Out[facility] [id number] Common 15:27:00 15:27:[address] [facility] 2019-06-06 2019-06-06 Out[facility] [id number] Common 09:40:00 09:40:[address] [facility] 2019-03-18 2019-03-18 Outpatient [facility] [id number] Common 16:01:00 16:01:[address] [facility] 2019-03-02 2019-03-02 Out[facility] [id number] Common 09:40:00 09:40:[address] [facility] 2019-02-18 2019-02-18 Outpatient [facility] [id number] Common 15:26:00 15:26:[address] [facility] 2018-12-15 2018-12-15 Outpatient [facility] [id number] Common 16:50:00 16:50:[address] [facility] 2018-11-25 2018-11-25 Outpatient [facility] [id number] Common 11:00:00 11:00:[address] [facility] Results Test Description Test Time Test Comments Results Result Comments Source TROPONIN I 2022-01-27 20:25:01 Test Item Value Reference Range Interpretation Comme nts TROPONIN I (test code = 0.003 ng/mL See_Comment [Au tomated message] The [id number]) system which ge nerated this result tra [...] biotin. Lab Interpretation Normal (test code = 74990-6) [facility]. METABOLIC PANEL (09223)2022-01-27 20:13:39 Test Item Value Reference Range Interpretation Comments NA (test code = 139 mmol/L 135-145 1739997442) K (test code = 4.0 mmol/L 3.5-5.0 1170903877) CL (test code = 105 mmol/L 98-108 6846408375) CO2 TOTAL (test code = 27 mmol/L 23-31 5039033993) AGAP (test code = 2-16 6978113027) BUN (test code = 18 mg/dL 7-23 6790814377) GLUCOSE (test code = 100 mg/dL 70-110 0048534181) CREATININE (test code = 1.28 mg/dL 0.50-1.04 H 5496434772) TOTAL BILI (test code = 0.6 mg/dL 0.1-1.8 7684804223) CALCIUM (test code = 8.9 mg/dL 8.6-10.6 7000333182) T PROTEIN (test code = 7.4 g/dL 6.3-8.2 3976612858) ALBUMIN (test code = 4.3 g/dL 3.5-5.0 8313938298) ALK PHOS (test code = 62 U/L 34-122 3286699572) ALTv (test code = 16 U/L 5-35 1742-6) AST(SGOT) (test code = 27 U/L 13-40 2912338297) eGFR (test code = mL/min/1.73m2 4147823828) DAMON (test code = DAMON) Association of [...] tests). Lab Interpretation Abnormal (test code = 11375-9) [facility] 20[facility]13:19 Test Item Value Reference Range Interpretation Comments LIPASE (test code = 8061865661) 110 U/L 0-220 Lab Interpretation (test code = Normal 53536-7) General acute hospital WITH [id number] 19:54:35 Test Item Value Reference Range Interpretation Comments WBC (test code = See_Comment [Automated 4890-2) message] The sy stem which generated this result transmitted reference range : 4.30 - 11.10 10*3/?L. The reference range was not used to interpret this result as normal/abnormal . RBC (test code = See_Comment L [Automated 008-8) message] The sy stem which generated this [...] RDW-SD (test code = 45.0 fL 39.0-49.9 88140-9) RDW-CV (test code = 13.0 % 12.0-15.5 788-0) PLT (test code = See_Comment [Automated 777-3) message] The sy stem which generated this result transmitted reference range : 166 - 358 10*3/ ?L. The reference r rafi was not used to interpret this result as normal/abnormal . MPV (test code = 10.3 fL 9.5-12.9 34605-9) NRBC/100 WBC (test See_Comment [Automat ed code = 5485620752) message] The system which generated this result transmitted reference range : 0.0 - 10.0 /100 WBCs. The refer ence range was not u sed to interpret th is result as normal/abnormal . NRBC x10^3 (test code <0.01 See_Comment [Auto mated = 7818754210) message] The s ystem which generated this result transmitted reference range : 10*3/?L. The reference range was not used to interpret this result as normal/abnormal . GRAN MAT (NEUT) % 69.7 % (test code = 770-8) IMM GRAN % (test code 0.40 % = 9296799196) LYMPH % (test code = 20.2 % 736-9) MONO % (test code = 8.3 % 5905-5) EOS % (test code = 1.2 % 713-8) BASO % (test code = 0.2 % 706-2) GRAN MAT x10^3(ANC) 6.35 10*3/uL 1.88-7.09 (test code = 9088949096) IMM GRAN x10^3 (test 0.04 10*3/uL 0.00-0.06 code = 1959543287) LYMPH x10^3 (test code 1.84 10*3/uL 1.32-3.29 = 731-0) MONO x10^3 (test code 0.76 10*3/uL 0.33-0.92 = 742-7) EOS x10^3 (test code = 0.11 10*3/uL 0.03-0.39 711-2) BASO x10^3 (test code <0.03 0.01-0.07 = 704-7) Lab Interpretation Abnormal (test code = 29885-8) [facility] URINALYSIS W SPECIFIC [id number] 16:33:00 Test Item Value Reference Range Interpretation [...] U APPEAR (test code = clear 3267) [facility] AntigenSARS-COV 2 AntigenSARS-COV 2 AntigenSARS-COV 2 Antigen"
--- NOTE | 2022-08-29 18:36 | ER ---
Nurse's Notes [facility] Name: Joyce Renee Age: 71 yrs Sex: Female : 1950 Arrival Date: 08/29/2022 Time: 15:40 Bed 18 Private MD: Tosin Melchor Diagnosis: Constipation, unspecified Presentation: 08/29 15:51 Chief complaint: Patient states: I have a lot of pressure in my lower abdomen , is due iw to have a barium enema per Dr. Hill , has been constipated and sometimes the only way I can pee is by laying on my left side. Coronavirus screen: At this time, the client does not indicate any symptoms associated with coronavirus-19. Ebola Screen: Patient negative for fever greater than or equal to 101.5 degrees Fahrenheit, and additional compatible Ebola Virus Disease symptoms Patient denies exposure to infectious person. Patient denies travel to an Ebola-affected area in the 21 days before illness onset. No symptoms or risks identified at this time. Initial Sepsis Screen: Does the patient meet any 2 criteria? No. Patient's initial sepsis screen is negative. Does the patient have a suspected source of infection? No. Patient's initial sepsis screen is negative. Risk Assessment: Do you want to hurt yourself or someone else? Patient reports no desire to harm self or others. 15:51 Method Of Arrival: Ambulatory 15:51 Acuity: GUCCI 3 iw 18:48 Onset of symptoms was August 06, 2022. kr3 Triage Assessment: 18:47 General: Appears in no apparent distress. uncomfortable, Behavior is calm, cooperative, kr3 appropriate for age. Pain: Complains of pain in suprapubic area, right lower quadrant and left lower quadrant. EENT: No signs and/or symptoms were reported regarding the EENT system. Neuro: Mckeon Agitation-Sedation Scale (RASS):. Cardiovascular: No deficits noted. Respiratory: No deficits noted. GI: Abdomen is round. : No deficits noted. Derm: No deficits noted. Musculoskeletal: No deficits noted. Historical: - Allergies: 15:53 Iodine; iw - PMHx: 15:53 Atrial Fib; chemotherapy; CML; diverticulosis; Hypertension; Hypothyroidism; Kidney iw stone; - Immunization history:: Adult Immunizations unknown. - Social history:: Smoking status: unknown. Screenin:47 [facility] ED Fall Risk Assessment (Adult) History of falling in the last 3 months, kr3 including since admission No falls in past 3 months (0 pts) Confusion or Disorientation No (0 pts) Intoxicated or Sedated No (0 pts) Impaired Gait No (0 pts) Mobility Assist Device Used No (0 pt) Altered Elimination No (0 pt) Score/Fall Risk Level 0 - 2 = Low Risk. Abuse screen: Denies threats or abuse. Nutritional screening: No deficits noted. Tuberculosis screening: No symptoms or risk factors identified. Assessment: 16:55 Reassessment: Administered a soap suds enema, was not able to hold but 3 minutes, kr3 pushed mostly water with very small particals. 18:32 Reassessment: Patient appears in no apparent distress at this time. started second kr3 enema at 1745, passed a small amount of stool at 1814. 18:48 GI: kr3 Vital Signs: 15:51 BP 136 / 71; Pulse 103; Resp 16; Temp 97.8; Pulse Ox 100% on R/A; iw 18:33 BP 140 / 70; Pulse 108; Resp 17; Pulse Ox 100% on R/A; kr3 ED Course: 15:40 Patient arrived in ED. am2 15:40 Tosin Melchor MD is Private Physician. am2 15:53 Triage completed. iw 15:53 Trent Stone DO is Attending Physician. ms3 15:53 Arm band placed on. iw 16:00 Placed in gown. Bed in low position. Call light in reach. Side rails up X 1. kr3 16:01 Cheyenne Kelley, DYLAN is Primary Nurse. kr3 18:35 Tosin Melchor MD is Referral Physician. ms3 18:48 No provider procedures requiring assistance completed. Patient did not have IV access kr3 during this emergency room visit. Administered Medications: 16:42 Drug: soap suds enema 1000 ml Route: AZ; kr3 18:46 Follow up: Response: No adverse reaction kr3 Medication: 18:49 VIS not applicable for this client. kr3 Outcome: 18:35 Discharge ordered by . ms3 18:48 Discharged to home ambulatory. kr3 18:48 Condition: stable 18:48 Discharge instructions given to patient, Instructed on discharge instructions, follow up and referral plans. Demonstrated understanding of instructions, follow-up care. 18:49 Patient left the ED. kr3 Signatures: Lana Santiago, RN RN iw Elmira Tom am2 Trent Stone DO DO ms3 Cheyenne Kelley RN RN kr3 Corrections: (The following items were deleted from the chart) 17:47 17:45 Reassessment: Administered a soap suds enema, was not able to hold but 3 minutes, kr3 pushed mostly water with very small particals kr3
--- NOTE | 2022-08-29 18:36 | EDPHYS ---
Physician Documentation [facility] Name: Joyce Renee Age: 71 yrs Sex: Female : 1950 Arrival Date: 08/29/2022 Time: 15:40 Bed 18 Private MD: Tosin Melchor ED Physician Trent Stone HPI: 08/29 16:28 This 71 yrs old Female presents to ER via Ambulatory with complaints of ms3 Constipation, Urinary Retention. 16:28 71-year-old female with past medical history of CML, atrial fibrillation, ms3 diverticulosis, hypertension, hypothyroidism presents for constipation and intermittent urinary retention that has been ongoing since June. Patient denies abdominal pain, nausea, vomiting, diarrhea, fevers, chills. Patient notes her last bowel movement was today in which she was able to produce a small amount of soft stool.. Historical: - Allergies: 15:53 Iodine; iw - PMHx: 15:53 Atrial Fib; chemotherapy; CML; diverticulosis; Hypertension; Hypothyroidism; Kidney iw stone; - Immunization history:: Adult Immunizations unknown. - Social history:: Smoking status: unknown. ROS: 16:28 Constitutional: Negative for fever, and chills. Neck: Negative for injury, pain, and ms3 swelling, Cardiovascular: Negative for chest pain, and palpitations. Respiratory: Negative for shortness of breath, cough, wheezing, and pleuritic chest pain. 16:28 Abdomen/GI: Positive for constipation. 16:28 All other systems are negative. Exam: 16:28 Constitutional: This is a well developed, well nourished patient who is awake, alert, ms3 and in no acute distress. Head/Face: Normocephalic, atraumatic. Eyes: Pupils equal round and reactive to light, extra-ocular motions intact. Lids and lashes normal. Conjunctiva and sclera are non-icteric and not injected. Periorbital areas with no swelling, redness, or edema. Neck: Trachea midline, no cervical lymphadenopathy. Supple, full range of motion without nuchal rigidity, or vertebral point tenderness. No Meningismus. Chest/axilla: Normal chest wall appearance and motion. Nontender with no deformity. Cardiovascular: Regular rate and rhythm with a normal S1 and S2. No gallops, murmurs, or rubs. Normal PMI, no JVD. No pulse deficits. Respiratory: Lungs have equal breath sounds bilaterally, clear to auscultation and percussion. No rales, rhonchi or wheezes noted. No increased work of breathing, no retractions or nasal flaring. Abdomen/GI: Soft, non-tender, with normal bowel sounds. No distension or tympany. No guarding or rebound. No evidence of tenderness throughout. Skin: Warm, dry with normal turgor. Normal color with no rashes, no lesions, and no evidence of cellulitis. MS/ Extremity: Pulses equal, no cyanosis. Neurovascular intact. Full, normal range of motion. Vital Signs: 15:51 BP 136 / 71; Pulse 103; Resp 16; Temp 97.8; Pulse Ox 100% on R/A; iw 18:33 BP 140 / 70; Pulse 108; Resp 17; Pulse Ox 100% on R/A; kr3 MDM: 16:28 Differential diagnosis:. ms3 16:30 Patient medically screened. ms3 18:36 Data reviewed: vital signs, nurses notes, and as a result, I will discharge patient. ms3 Consideration of Admission/Observation Escalation of care including admission/observation considered. No emergent medical condition necessitating admission found at this time. I considered the following discharge prescriptions or medication management in the emergency department I discussed and recommended Over The Counter medications. Test considered but Not performed: Labs: Indication f patient without abdominal pain at this time.. Historians other than the Patient: Spouse/Significant Other: Patient's . Care significantly affected by the following chronic conditions: Hypertension, Hypothyroidism. Counseling: I had a detailed discussion with the patient and/or guardian regarding: the historical points, exam findings, and any diagnostic results supporting the discharge/admit diagnosis, the need for outpatient follow up, to return to the emergency department if symptoms worsen or persist or if there are any questions or concerns that arise at home. Special discussion: I discussed with the patient/guardian in detail that at this point there is no indication for admission to the hospital. It is understood, however, that if the symptoms persist or worsen the patient needs to return immediately for re-evaluation. ED course: Patient with bowel movement after soapsuds enema. Patient reports improvement of her symptoms. Patient to follow-up with her primary care physician in 2 to 3 days. Discussed use of MiraLAX or Benefiber with patient. Patient understands and agrees with plan. All questions were answered. Return precautions discussed to include worsening symptoms, fevers, chills, or any other concerns.. Administered Medications: 16:42 Drug: soap suds enema 1000 ml Route: CT; kr3 18:46 Follow up: Response: No adverse reaction kr3 Disposition Summary: 08/29/22 18:35 Discharge Ordered Location: Home ms3 Condition: Stable ms3 Diagnosis - Constipation, unspecified ms3 Followup: ms3 - With: Tosin Melchor MD - When: 2 - 3 days - Reason: Recheck today's complaints Discharge Instructions: - Discharge Summary Sheet ms3 - Constipation, Adult ms3 Forms: - Medication Reconciliation Form ms3 - Thank You Letter ms3 - Antibiotic Education ms3 - Prescription Opioid Use ms3 Signatures: Lana Santiago, RN RN Trent Sneed DO DO ms3 Cheyenne Kelley RN RN kr3
[2022-08-29 20:15] VITALS: TEMP 97.8; O2SAT 100
[2022-08-29 20:16] VITALS: BP 140/70
== END 2022-08-29 18:49 | disposition home or self-care (01) ==
LOC: ER 15:37
DX: K59.00 Constipation, unspecified (principal)
CPT/HCPCS: 99283